=== PATIENT | female | born 1940 | race Caucasian/White ===

== ENCOUNTER 2016-06-06 14:25 | Outpatient (CLI) | payer MEDICARE, OTHER | END 2016-06-06 23:59 | DX: R06.02 Shortness of breath (principal); I10 Essential (primary) hypertension ==

== ENCOUNTER 2016-06-14 10:55 | Outpatient (CLI) | payer MEDICARE, OTHER | END 2016-06-14 10:56 | disposition home or self-care (01) | DX: Z12.31 Encounter for screening mammogram for malignant neoplasm of breast (principal) ==

== ENCOUNTER 2016-06-23 11:24 | Outpatient (CLI) | payer MEDICARE, OTHER | END 2016-06-23 11:25 | disposition home or self-care (01) | DX: I35.0 Nonrheumatic aortic (valve) stenosis (principal); R01.1 Cardiac murmur, unspecified; R06.02 Shortness of breath; I51.9 Heart disease, unspecified ==

== ENCOUNTER 2018-10-10 14:40 | Outpatient (CLI) | payer MEDICARE, OTHER ==
[2018-10-10 16:25] LABS: H. PYLORIS ANTIGEN STL NEGATIVE (Negative)
== END 2018-10-10 23:59 | disposition home or self-care (01) ==
LOC: LAB.R 14:40
PROVIDERS: ATTEND Family Medicine
DX: R19.7 Diarrhea, unspecified (principal)
CPT/HCPCS: 81599; 82270; 82274; 83630; 87045; 87046; 87177; 87209; 87329; 87338; 87493

== ENCOUNTER 2021-03-14 10:35 | Outpatient (CLI) | payer MEDICARE, OTHER | END 2021-03-14 10:36 | disposition critical access hospital (66) | LOC: EMS 10:35 | DX: U07.1 COVID-19 (principal) | CPT/HCPCS: A0425; A0429 ==

== ENCOUNTER 2021-03-14 10:49 | Inpatient (IN) | payer MEDICARE, OTHER ==
[2021-03-14 12:12] LABS: BASOPHILS % (AUTO) 0.5 %; EOSINOPHILS # (AUTO) 0.1 10^3/uL (0.0-0.7); EOSINOPHILS % (AUTO) 1.8 %; HCT - HEMATOCRIT 41.2 % (37.0-47.0); HGB - HEMOGLOBIN 13.3 g/dL (12.0-16.0); LYMPHOCYTES # (AUTO) 0.4 10^3/uL (1.5-3.5); LYMPHOCYTES % (AUTO) 6.6 %; MEAN CORPUSCULAR HEMOGLOBIN 27.2 pg (27.0-31.0); MEAN CORPUSCULAR HGB CONC 32.3 g/dL (32.0-36.0); MEAN CORPUSCULAR VOLUME 84.3 fL (81.0-99.0); MEAN PLATELET VOLUME 9.9 fL (7.9-10.8); MONOCYTES # (AUTO) 0.5 10^3/uL (0.0-1.0); MONOCYTES % (AUTO) 7.5 %; NEUTROPHILS # (AUTO) 5.4 10^3/uL (1.5-6.6); NEUTROPHILS % (AUTO) 83.3 %; PLT - PLATELET COUNT 278 10^3/uL (130-450); RED BLOOD COUNT 4.89 10^6/uL (4.20-5.40); RED CELL DISTRIBUTION WIDTH 15.9 % (12.0-15.0); WHITE BLOOD COUNT 6.5 x10^3/uL (4.8-10.8)
--- NOTE | 2021-03-14 12:19 | XRAY Report ---
PROCEDURE: Chest 1 View X-Ray INDICATIONS: chest pain TECHNIQUE: One view of the chest was acquired. COMPARISON: Chest x-ray 02/09/2016 FINDINGS: Surgical changes and devices: Pacemaker. Lungs and pleura: There is an overall appearance of increased vascularity. Blunting of the costophren ic angles are present. Mediastinum: Mediastinal contours appear normal. Heart size is normal. Bones and chest wall: No suspicious bony lesions. Overlying soft tissues appear unremarkable. IMPRESSION: Increased vascularity suggestive of edema. Costophrenic angle blunting is present likely related to t race effusions. Reviewed by: Myriam Iasac MD on 03/14/2021 12:17 PM PST Approved by: Myriam Isaac MD on 03/14/2021 12:17 PM PST Station ID: [id number]
[2021-03-14 12:29] LABS: ALBUMIN 3.9 g/dL (3.2-5.5); ALBUMIN/GLOBULIN RATIO 1.2 (1.0-2.2); BILIRUBIN,TOTAL 1.1 mg/dL (0.2-1.0); CALCIUM 9.2 mg/dL (8.5-10.3); CREATININE 0.9 mg/dL (0.4-1.0); POTASSIUM 3.6 mmol/L (3.5-5.0); TOTAL PROTEIN 7.2 g/dL (6.7-8.2)
[2021-03-14 13:11] LABS: CORONAVIRUS 229E-RESP PCR NOT DETECTED; CORONAVIRUS HKU1-RESP PCR NOT DETECTED; CORONAVIRUS NL63-RESP PCR NOT DETECTED; CORONAVIRUS OC43-RESP PCR NOT DETECTED; HUMAN METAPNEUMOVIRUS NOT DETECTED; INFLUENZA A- RESP PCR PANEL NOT DETECTED; INFLUENZA B - RESP PCR PANEL NOT DETECTED; PARAINFLUENZA VIRUS 1 NOT DETECTED; PARAINFLUENZA VIRUS 2 NOT DETECTED; PARAINFLUENZA VIRUS 3 NOT DETECTED; PARAINFLUENZA VIRUS 4 NOT DETECTED; RHINOVIRUS/ENTEROVIRUS NOT DETECTED; RSV- RESP PCR PANEL NOT DETECTED; SARS-CoV-2 -RESP PCR PANEL DETECTED
[2021-03-14 13:12] LABS: B. PARAPERTUSSIS- RESP PCR PAN NOT DETECTED; B. PERTUSSIS- RESP PCR PANEL NOT DETECTED; C. PNEUMONIAE- RESP PCR PANEL NOT DETECTED; M. PNEUMONIAE- RESP PCR PANEL NOT DETECTED
[2021-03-14] MEDS ORDERED: IOVERSOL 320 100 ML VIAL IVP ONE ×2 (13:26→15:41)
--- NOTE | 2021-03-14 15:12 | CT Report ---
PROCEDURE: ANGIO CHEST W/WO INDICATIONS: Rule out PE CONTRAST: IV CONTRAST: Optiray 320 ml: 80 PO CONTRAST: *NO PO CONTRAST TECHNIQUE: After the administration of intravenous contrast, 2 mm axial images were acquired from the pulmonary apices to the posterior costophrenic angles during the arterial phase. In addition, 1 mm lung kernel and 5 mm soft tissue kernel reconstructions were performed. 3-dimensional coronal oblique maximum int ensity projection (MIP) reformats, 8 mm axial MIP, and 5 mm coronal and sagittal MPR reformats were t hen performed through the thorax. For radiation dose reduction, the following was used: automated exp osure control, adjustment of mA and/or kV according to patient size. COMPARISON: Chest x-ray 03/14/2021 FINDINGS: Image quality: Excellent. Pulmonary arteries: Pulmonary arteries are normal in size, and demonstrate no intraluminal filling d efects to suggest central pulmonary embolism. Lungs and pleura: There is mild appearance of increased pulmonary vascularity. Mild patchy areas of o pacity are present within the lungs bilaterally particularly within the bases. There is no gross cons olidation. No pleural effusions or pneumothorax. Central and peripheral airways are patent. Mediastinum: Heart size is normal, without pericardial effusion. No mediastinal or hilar adenopathy . Thoracic aorta is normal in caliber and enhancement. Esophagus is normal in caliber, without hiat al hernia. Bones and chest wall: No suspicious bony lesions. Ribs and thoracic spine appear intact throughout. No axillary or supraclavicular adenopathy. The thyroid is normal in size and there are no incident al findings. Abdomen: Visualized upper abdominal solid organs appear normal in the early arterial phase of enhanc ement. IMPRESSION: 1. No pulmonary embolism. 2. Appearance of increased pulmonary vascularity is present as and received with edema. 3. Mild appearance of increased opacity within the lungs are present at the bases which can be seen w ith chronic interstitial pulmonary disease. However, appearance is also suggestive of edema. Underlyi ng developing areas of pneumonia and/or atelectasis cannot be excluded. CLINICAL RECOMMENDATION STATEMENTS: In patients <35 years with an ITN detected on CT, MRI, or extrathyroidal ultrasound, the Committee re commends further evaluation with dedicated thyroid ultrasound if the nodule is "e1 cm and has no susp icious imaging features, and if the patient has normal life expectancy. In patients "e35 years with an ITN detected on CT, MRI, or extrathyroidal ultrasound, the Committee r ecommends further evaluation with dedicated thyroid ultrasound if the nodule is "e1.5 cm and has no s uspicious imaging features, and if the patient has normal life expectancy. (ACR, 2014) Reviewed by: Myriam Isaac MD on 03/14/2021 3:10 PM PST Approved by: Myriam Isaac MD on 03/14/2021 3:10 PM PST Station ID: [id number]
[2021-03-14] MEDS ORDERED: DEXAMETHASONE 10 MG/ML VIAL IV STA (15:24)
[2021-03-14] MEDS ORDERED: AZITHROMYCIN INJ 500 MG in SODIUM CHLORIDE 0.9% 250 ML IV STA (15:25)
[2021-03-14] MEDS ORDERED: FUROSEMIDE 20 MG/2 ML VIAL IVP STA (17:01)
[2021-03-14] MEDS ORDERED: ASPIRIN 325 MG TABLET PO STA (17:02)
--- NOTE | 2021-03-14 17:11 | ED Physician Documentation ---
PD HPI DYSPNEA - Stated complaint Stated Complaint: SOA/C+ - Chief complaint Chief Complaint: Resp - History obtained from History obtained from: Patient - Additional information Additional information: Patient is 80-year-old female presenting to the emergency department with shortness of breath, chest pressure. Reports cough, congestion, shortness of breath, chest pressure ongoing for the last few days. States test is positive for the novel coronavirus yesterday with a home test. Reports did not receive any Covid vaccination or influenza vaccination this year.Past medical significant for prosthetic heart valve, pacemaker. Review of Systems Ten Systems: 10 systems reviewed and negative Constitutional: reports: Fever, Chills Cardiac: reports: Chest pain / pressure Respiratory: reports: Dyspnea, Cough GI: reports: Nausea, Vomiting : reports: Dysuria Skin: reports: Rash PD PAST MEDICAL HISTORY - Allergies Allergies/Adverse Reactions: Allergies Allergy/AdvReac Type Severity Reaction Status Date / Time No Known Drug Allergies Allergy Verified 03/14/21 11:01 - Social History Does the pt smoke?: No Smoking Status: Never smoker PD ED PE NORMAL - Vitals Vital signs reviewed: Yes - General General: Alert and oriented X 3 - HEENT HEENT: Atraumatic - Neck Neck: Supple, no meningeal sign - Cardiac Cardiac: RRR, No murmur, No gallop, No rub - Respiratory Respiratory: No respiratory distress, Other (Rales in the bilateral lower lobes) - Abdomen Abdomen: Normal bowel sounds - Female Female : Deferred - Rectal Rectal: Deferred Results - Vitals Vitals: Vital Signs - 24 hr 03/14/21 03/14/21 03/14/21 11:01 11:07 11:37 Temperature 39.2 C H Heart Rate 102 H 95 102 H Respiratory 28 H 25 H 30 H Rate Blood Pressure 170/64 H 163/78 H 165/78 H O2 Saturation 94 94 85 L 03/14/21 03/14/21 03/14/21 11:38 12:07 12:30 Temperature Heart Rate 100 95 92 Respiratory 25 H 36 H 28 H Rate Blood Pressure 165/78 H 160/80 H O2 Saturation 95 98 97 03/14/21 03/14/21 03/14/21 13:00 13:30 14:00 Temperature Heart Rate 100 100 99 Respiratory 20 20 27 H Rate Blood Pressure 171/76 H 170/78 H 180/86 H O2 Saturation 99 99 95 03/14/21 03/14/21 03/14/21 15:30 16:00 17:07 Temperature Heart Rate 99 99 91 Respiratory 25 H 28 H Rate Blood Pressure 176/62 H 164/83 H O2 Saturation 97 98 98 Oxygen O2 Source Nasal cannula Oxygen Flow Rate 2 - EKG (time done) 1154 Rate: Rate (enter#) (95) Rhythm: NSR [place]: LAD Intervals: Normal [place], Prolonged QT, RBBB Ischemia: Normal ST segments, Hyperacute T waves Computer interpretation: Agree with computer - Labs Labs: Laboratory Tests 03/14/21 03/14/21 03/14/21 11:53 12:03 12:03 WBC 6.5 RBC 4.89 Hgb 13.3 Hct 41.2 MCV 84.3 MCH 27.2 MCHC 32.3 RDW 15.9 H Plt Count 278 MPV 9.9 Neut # (Auto) 5.4 Lymph # (Auto) 0.[address] [facility] # (Auto) 0.5 Eos # (Auto) 0.1 Baso # (Auto) 0.0 Absolute Nucleated RBC 0.00 Nucleated RBC % 0.0 Sodium 134 L Potassium 3.6 Chloride 98 L Carbon Dioxide 23 Anion Gap 13.0 BUN 17 Creatinine 0.9 Estimated GFR (MDRD) 60 L Glucose 115 H Lactic Acid Calcium 9.2 Total Bilirubin 1.1 H AST 47 H ALT 25 Alkaline Phosphatase 77 Troponin I High Sens B-Natriuretic Peptide Total Protein 7.2 Albumin 3.9 Globulin 3.3 Albumin/Globulin Ratio 1.2 Lipase 27 Nasal Adenovirus (PCR) NOT DETECTED Nasal B. parapertussis DNA (PCR) NOT DETECTED Nasal Coronavir 229E PCR NOT DETECTED Nasal Coronavir HKU1 PCR NOT DETECTED Nasal Coronavir NL63 PCR NOT DETECTED Nasal Coronavir OC43 PCR NOT DETECTED Nasal Enterovir/Rhinovir PCR NOT DETECTED Nasal Influenza B PCR NOT DETECTED Nasal Influenza A PCR NOT DETECTED Nasal Parainfluen 1 PCR NOT DETECTED Nasal Parainfluen 2 PCR NOT DETECTED Nasal Parainfluen 3 PCR NOT DETECTED Nasal Parainfluen 4 PCR NOT DETECTED Nasal RSV (PCR) NOT DETECTED Nasal B.pertussis DNA PCR NOT DETECTED Nasal C.pneumoniae (PCR) NOT DETECTED Pancho Human Metapneumo PCR NOT DETECTED Nasal M.pneumoniae (PCR) NOT DETECTED Nasal SARS-CoV-2 (PCR) DETECTED A 03/14/21 03/14/21 03/14/21 12:03 12:03 12:03 WBC RBC Hgb Hct MCV MCH MCHC RDW Plt Count MPV Neut # (Auto) Lymph # (Auto) [facility] [facility] # (Auto) Eos # (Auto) Baso # (Auto) Absolute Nucleated RBC Nucleated RBC % Sodium Potassium Chloride Carbon Dioxide Anion Gap BUN Creatinine Estimated GFR (MDRD) Glucose Lactic Acid 1.9 Calcium Total Bilirubin AST ALT Alkaline Phosphatase Troponin I High Sens 28.4 H* B-Natriuretic Peptide 87 Total Protein Albumin Globulin Albumin/Globulin Ratio Lipase Nasal Adenovirus (PCR) Nasal B. parapertussis DNA (PCR) Nasal Coronavir 229E PCR Nasal Coronavir HKU1 PCR Nasal Coronavir NL63 PCR Nasal Coronavir OC43 PCR Nasal Enterovir/Rhinovir PCR Nasal Influenza B PCR Nasal Influenza A PCR Nasal Parainfluen 1 PCR Nasal Parainfluen 2 PCR Nasal Parainfluen 3 PCR Nasal Parainfluen 4 PCR Nasal RSV (PCR) Nasal B.pertussis DNA PCR Nasal C.pneumoniae (PCR) Pancho Human Metapneumo PCR Nasal M.pneumoniae (PCR) Nasal SARS-CoV-2 (PCR) 03/14/21 15:35 WBC RBC Hgb Hct MCV MCH MCHC RDW Plt Count MPV Neut # (Auto) Lymph # (Auto) [facility] # (Auto) Eos # (Auto) Baso # (Auto) Absolute Nucleated RBC Nucleated RBC % Sodium Potassium Chloride Carbon Dioxide Anion Gap BUN Creatinine Estimated GFR (MDRD) Glucose Lactic Acid Calcium Total Bilirubin AST ALT Alkaline Phosphatase Troponin I High Sens 30.9 H* B-Natriuretic Peptide Total Protein Albumin Globulin Albumin/Globulin Ratio Lipase Nasal Adenovirus (PCR) Nasal B. parapertussis DNA (PCR) Nasal Coronavir 229E PCR Nasal Coronavir HKU1 PCR Nasal Coronavir NL63 PCR Nasal Coronavir OC43 PCR Nasal Enterovir/Rhinovir PCR Nasal Influenza B PCR Nasal Influenza A PCR Nasal Parainfluen 1 PCR Nasal Parainfluen 2 PCR Nasal Parainfluen 3 PCR Nasal Parainfluen 4 PCR Nasal RSV (PCR) Nasal B.pertussis DNA PCR Nasal C.pneumoniae (PCR) Pancho Human Metapneumo PCR Nasal M.pneumoniae (PCR) Nasal SARS-CoV-2 (PCR) PD MEDICAL DECISION MAKING - ED course Complexity details: reviewed old records, reviewed results, considered differential, d/w patient, d/w program consultant ED course: Patient is 80-year-old female presenting to the emergency department with hypoxic respiratory failure, chest pressure in setting of recent positive home Covid test. On arrival to the emergency department patient did endorse for some shortness of breath and chest pressure. EKG as outlined above was negative for indications of acute cardiac ischemia and was consistent with her known history of a pacer. She did have a mild elevation in high-sensitivity troponin that was uptrending on repeat. Additionally while in the emergency department she had some brief episodes of hypoxia and was placed on 2 L nasal cannula. I did obtain comprehensive labs which were generally within normal limits are non actionable with the exception of the above-mentioned troponin. I did elect to obtain CT of her chest which demonstrated some pulmonary edema, of note her BNP was within a normal limit and she did not appear to be in any kind of florid heart failure. Her case was discussed directly with the hospitalist service. At this time she will be hospitalized for further evaluation and treatment. Departure - Departure Disposition: 01 Home, Self Care Clinical Impression: COVID-19, Pulmonary edema, Elevated troponin I level Condition: Fair
--- NOTE | 2021-03-14 17:13 | HISTORY & PHYSICAL EXAMINATION ---
Chief Complaint - Chief Complaint Chief Complaint: dyspnea, substernal chest pressure History of Present Illness - Admitted From Admitted From:: [facility] ED - History Obtained From Records Reviewed: yes History obtained from: patient - History of Present Illness HPI Comment/Other: He is an 80-year-old female who presented to the ED with complaint of dyspnea which has been going on for the past 2 days. Today it was worse. She also reported experiencing substernal chest discomfort which she described as a pressure and rated 7 out of 10. She was also experiencing nausea and dry heaving. She reported an unspecified fever. In the ED she was tachypneic with respiratory rate as high as 36. As she was hypoxic with an oxygen saturation of 85% on room air. However on 2 L oxygen her oxygen saturation was in the mid to high 90s. She had a CT angiogram which was negative for pulmonary embolism but there was increased pulmonary vascularity suggestive of edema. Initial troponin was 28 and a repeat was 30. She is positive for COVID-19. She is unvaccinated. She was admitted for further treatment. 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 Social History Notes: She lives at home with her . She does not smoke tobacco products, consume alcohol or use recreational substances - POLST Patient has POLST: No POLST Status: Full Code Meds/Allgy - Allergies Allergies/Adverse Reactions: Allergies Allergy/AdvReac Type Severity Reaction Status Date / Time No Known Drug Allergies Allergy Verified 03/14/21 11:01 Review of Systems - Constitutional Constitutional: reports: Fever. denies: Fatigue, Weakness - Eyes Eyes: denies: Pain - Ears, Nose & Throat Ears, Nose & Throat: denies: Ear pain - Cardiovascular Cariovascular: reports: Chest pain, Exertional dyspnea. denies: Irregular heart rate, Edema - Respiratory Respiratory: reports: Wheezing, SOB at rest, SOB with exertion. denies: Cough - Gastrointestinal Gastrointestinal: reports: Nausea, Vomiting. denies: Abdominal pain, Abdominal distention, Diarrhea, Reflux/heartburn - Genitourinary Genitourinary: denies: Dysuria, Frequency, Urgency, Hematuria - Musculoskeletal Musculoskeletal: denies: Muscle pain, Back pain, Muscle aches - Integumentary Integumentary: denies: Rash, Pruritis, Lesions - Neurological Neurological: denies: General weakness, Focal weakness, Headache, Dizziness - Psychiatric Psychiatric: denies: Depression, Anxiety - Endocrine Endocrine: denies: Polyuria, Polydypsia - Hematologic/Lymphatic Hematologic/Lymphatic: denies: Anemia, Bruising, Petechiae Prior Level of Functionality: She is independent of activities of daily living. Exam - Vital Signs Vital Signs: Vital Signs x48h Temp Pulse Resp BP Pulse Ox 03/14/21 16:00 99 25 H 176/62 H 98 03/14/21 15:30 99 97 03/14/21 14:00 99 27 H 180/86 H 95 03/14/21 13:30 100 20 170/78 H 99 03/14/21 13:00 100 20 171/76 H 99 03/14/21 12:30 92 28 H 97 03/14/21 12:07 95 36 H 160/80 H 98 03/14/21 11:38 100 25 H 165/78 H 95 03/14/21 11:37 102 H 30 H 165/78 H 85 L 03/14/21 11:07 95 25 H 163/78 H 94 03/14/21 11:01 39.2 C H 102 H 28 H 170/64 H 94 - Physical Exam General Appearance: positive: Alert, Mild distress Eyes Bilateral: positive: PERRL, EOMI ENT: positive: No signs of dehydration Neck: positive: No JVD, Trachea midline Respiratory: positive: Chest non-tender, Rhonchi Cardiovascular: positive: Regular rate & rhythm, No murmur, No gallop Abdomen: positive: Non-tender, Nml bowel sounds, No distention. negative: Guarding, Rebound Back: positive: Nml inspection Skin: positive: Color nml, No rash, Warm, Dry Extremities: positive: Non-tender, Full ROM, Nml appearance, No pedal edema Neurologic/Psychiatric: positive: Oriented x3, Mood/affect nml Conclusion/Plan - Problem List (1) Acute respiratory failure with hypoxia Conclusion/Plan: Likely secondary to COVID-19 Patient was briefly hypoxic with oxygen saturation of 85% on room air. On 2 L patient's oxygen saturation ranges between 95 and 97%. Patient received Decadron 10 mg IV x1 in the ED. We will continue Decadron 6 mg IV daily starting tomorrow. Continue supplemental oxygen via nasal cannula. Lovenox 40 mg IV subcu for DVT prophylaxis. CT angio of the chest was negative for PE. (2) COVID-19 Conclusion/Plan: Patient was briefly hypoxic with oxygen saturation of 85% on room air. On 2 L patient's oxygen saturation ranges between 95 and 97%. Patient received Decadron 10 mg IV x1 in the ED. We will continue Decadron 6 mg IV daily starting tomorrow. Continue supplemental oxygen via nasal cannula. Lovenox 40 mg IV subcu for DVT prophylaxis. CT angio of the chest was negative for PE. (3) Chest pressure Conclusion/Plan: This is likely due to patient's respiratory problem with COVID-19. However we will trend troponin x3. Initial troponin was 28, repeat was 30. Full dose aspirin given. We will continue baby aspirin daily starting tomorrow. Twelve-lead EKG pending. Patient's COVID-19 positive result will limit patient's ability to undergo a stress test at the moment. (4) Hypothyroidism Conclusion/Plan: Continue Synthroid at home dose. (5) Hypertension Conclusion/Plan: Labetalol and/or hydralazine IV as needed for systolic blood pressure greater than 160. - Lab Results Fish Bones: 03/14/21 12:03 03/14/21 12:03 Core Measures - Anticipated LOS I expect patient to be DC'd or transferred within 96 hours.: Yes - DVT/VTE - Prophylaxis VTE/DVT Device ordered at admit?: Yes VTE/DVT Prophylaxis med ordered at admit?: Yes
[2021-03-14] MEDS ORDERED: LABETALOL 20 MG/4 ML SYRINGE IVP PRN (17:21)
[2021-03-14] MEDS: SODIUM CHLORIDE FLUSH 0.9% 10 ML SYRINGE IVP SCH (18:01)
[2021-03-14] MEDS: ACETAMINOPHEN 325 MG TABLET PO PRN (18:40)
[2021-03-15] MEDS: SODIUM CHLORIDE FLUSH 0.9% 10 ML SYRINGE IVP SCH ×3 (02:00→19:34)
[2021-03-15] MEDS: BENZOCAINE/MENTHOL LOZENGE MM PRN (04:13)
[2021-03-15] MEDS: ACETAMINOPHEN 325 MG TABLET PO PRN ×3 (04:13→17:12)
[2021-03-15 04:22] LABS: BASOPHILS % (AUTO) 0.2 %; HCT - HEMATOCRIT 43.1 % (37.0-47.0); LYMPHOCYTES # (AUTO) 0.6 10^3/uL (1.5-3.5); LYMPHOCYTES % (AUTO) 10.5 %; MEAN CORPUSCULAR HEMOGLOBIN 26.9 pg (27.0-31.0); MEAN CORPUSCULAR HGB CONC 32.5 g/dL (32.0-36.0); MEAN CORPUSCULAR VOLUME 82.7 fL (81.0-99.0); MEAN PLATELET VOLUME 9.8 fL (7.9-10.8); MONOCYTES # (AUTO) 0.5 10^3/uL (0.0-1.0); MONOCYTES % (AUTO) 8.4 %; NEUTROPHILS # (AUTO) 4.5 10^3/uL (1.5-6.6); NEUTROPHILS % (AUTO) 80.4 %; PLT - PLATELET COUNT 293 10^3/uL (130-450); RED BLOOD COUNT 5.21 10^6/uL (4.20-5.40); RED CELL DISTRIBUTION WIDTH 15.7 % (12.0-15.0); WHITE BLOOD COUNT 5.6 x10^3/uL (4.8-10.8)
[2021-03-15 04:33] LABS: CALCIUM 9.5 mg/dL (8.5-10.3); POTASSIUM 3.3 mmol/L (3.5-5.0)
[2021-03-15] MEDS ORDERED: POTASSIUM CHLORIDE 20 MEQ TABLET PO ONE (07:19)
--- NOTE | 2021-03-15 07:52 | PROVIDER PROGRESS NOTE ---
Subjective - Prog Note Date Prog Note Date: 03/15/21 - Subjective Subjective: She does not feel any better today. Still feels short of breath especially with any activity. She is beginning to have a worsening cough. Current Medications - Current Medications Current Medications: Active Medications Acetaminophen (Acetaminophen 325 Mg Tablet) 650 mg PO Q4HR PRN PRN Reason: Pain 1 to 4 Last Admin: 03/15/21 04:13 Dose: 650 mg Documented by: Aspirin (Aspirin Ec 81 Mg Tablet) 81 mg PO DAILY [facility] Last Admin: 03/15/21 08:32 Dose: 81 mg Documented by: Dexamethasone (Dexamethasone 4 Mg/Ml Vial) 6 mg IVP DAILY [facility] Stop: 03/23/21 09:01 Last Admin: 03/15/21 08:32 Dose: 6 mg Documented by: Enoxaparin Sodium (Enoxaparin 40 Mg/0.4 Ml Syringe) 40 mg SUBQ DAILY [facility] Last Admin: 03/15/21 08:32 Dose: 40 mg Documented by: Hydralazine HCl (Hydralazine Inj 20 Mg/Ml Vial) 10 mg IVP Q4H PRN PRN Reason: PER PHYSICIAN ORDER Labetalol HCl (Labetalol 20 Mg/4 Ml Syringe) 10 mg IVP Q4H PRN PRN Reason: PER PHYSICIAN ORDER Ondansetron HCl (Ondansetron 4 Mg/2 Ml Vial) 4 mg IVP Q6HR PRN PRN Reason: Nausea / Vomiting Sodium Chloride (Sodium Chloride Flush 0.9% 10 Ml Syringe) 10 ml IVP PRN PRN PRN Reason: NEEDED PER PROVIDER ORDERS Sodium Chloride (Sodium Chloride Flush 0.9% 10 Ml Syringe) 10 ml IVP 0100,0900,1700 [facility] Last Admin: 03/15/21 08:37 Dose: 10 ml Documented by: Throat Lozenges (Benzocaine/Menthol Lozenge) 1 lozenge MM Q2HR PRN PRN Reason: Throat pain Last Admin: 03/15/21 04:13 Dose: 1 lozenge Documented by: Home Medications Unobtainable [HOME MEDICATIONS UNOBTAINABLE] 03/14/21 Objective - Vital Signs/Intake & Output Reviewed Vital Signs: Yes Vital Signs: Vital Signs x48h Temp Pulse Resp BP BP Pulse Ox 03/15/21 04:21 36.5 C 82 20 153/67 H 92 03/15/21 02:00 36.4 C L 81 18 160/70 H 94 Intake & Output: Intake & Output 03/12/21 03/13/21 03/14/21 03/15/21 23:59 23:59 23:59 23:59 Intake Total 250 50 Output Total 600 Balance -350 50 - Objective General Appearance: positive: No acute distress, Alert Eyes Bilateral: positive: Normal inspection, Conjunctivae nml ENT: positive: ENT inspection nml, Other (Nasal cannula in place.) Neck: positive: Nml inspection Respiratory: positive: No respiratory distress, Other (Diminished breath sounds.) Cardiovascular: positive: Regular rate & rhythm. negative: Tachycardia, Systolic murmur Abdomen: positive: Non-tender, No distention. negative: Tenderness Skin: positive: Warm, Dry Extremities: positive: No pedal edema Neurologic/Psychiatric: positive: Motor nml. negative: Disoriented to person, Disoriented to place, Disoriented to time - Lab Results Fish Bones: 03/15/21 04:14 03/15/21 04:14 Other Labs: Lab Results x24hrs 03/15/21 03/15/21 03/15/21 Range/Units 04:14 04:14 04:14 WBC 5.6 (4.8-10.8) x10^3/uL RBC 5.21 (4.20-5.40) 10^6/uL Hgb 14.0 (12.0-16.0) g/dL Hct 43.1 (37.0-47.0) % MCV 82.7 (81.0-99.0) fL MCH 26.9 L (27.0-31.0) pg MCHC 32.5 (32.0-36.0) g/dL RDW 15.7 H (12.0-15.0) % Plt Count 293 (130-450) 10^3/uL MPV 9.8 (7.9-10.8) fL Neut # (Auto) 4.5 (1.5-6.6) 10^3/uL Lymph # (Auto) 0.6 L (1.5-3.5) 10^3/uL [place] # (Auto) 0.5 (0.0-1.0) 10^3/uL Eos # (Auto) 0.0 (0.0-0.7) 10^3/uL Baso # (Auto) 0.0 (0.0-0.1) 10^3/uL Absolute Nucleated RBC 0.00 x10^3/uL Nucleated RBC % 0.0 /100WBC Sodium 133 L (135-145) mmol/L Potassium 3.3 L (3.5-5.0) mmol/L Chloride 99 L (101-111) mmol/L Carbon Dioxide 21 (21-32) mmol/L Anion Gap 13.0 (6-13) BUN 26 H (6-20) mg/dL Creatinine 1.0 (0.4-1.0) mg/dL Estimated GFR (MDRD) 53 L (>89) Glucose 185 H (70-100) mg/dL Lactic Acid (0.5-2.2) mmol/L Calcium 9.5 (8.5-10.3) mg/dL Total Bilirubin (0.2-1.0) mg/dL AST (10-42) IU/L ALT (10-60) IU/L Alkaline Phosphatase (42-121) IU/L Troponin I High Sens 18.3 H* (2.3-14.8) ng/L B-Natriuretic Peptide (5-100) pg/mL Total Protein (6.7-8.2) g/dL Albumin (3.2-5.5) g/dL Globulin (2.1-4.2) g/dL Albumin/Globulin Ratio (1.0-2.2) Lipase (22-51) U/L Nasal Adenovirus (PCR) Nasal B. parapertussis DNA (PCR) Nasal Coronavir 229E PCR Nasal Coronavir HKU1 PCR Nasal Coronavir NL63 PCR Nasal Coronavir OC43 PCR Nasal Enterovir/Rhinovir PCR Nasal Influenza B PCR Nasal Influenza A PCR Nasal Parainfluen 1 PCR Nasal Parainfluen 2 PCR Nasal Parainfluen 3 PCR Nasal Parainfluen 4 PCR Nasal RSV (PCR) Nasal B.pertussis DNA PCR Nasal C.pneumoniae (PCR) [place] Human Metapneumo PCR Nasal M.pneumoniae (PCR) Nasal SARS-CoV-2 (PCR) 03/14/21 03/14/21 03/14/21 Range/Units 22:06 15:35 12:03 WBC (4.8-10.8) x10^3/uL RBC (4.20-5.40) 10^6/uL Hgb (12.0-16.0) g/dL Hct (37.0-47.0) % MCV (81.0-99.0) fL MCH (27.0-31.0) pg MCHC (32.0-36.0) g/dL RDW (12.0-15.0) % Plt Count (130-450) 10^3/uL MPV (7.9-10.8) fL Neut # (Auto) (1.5-6.6) 10^3/uL Lymph # (Auto) (1.5-3.5) 10^3/uL [place] # (Auto) (0.0-1.0) 10^3/uL Eos # (Auto) (0.0-0.7) 10^3/uL Baso # (Auto) (0.0-0.1) 10^3/uL Absolute Nucleated RBC x10^3/uL Nucleated RBC % /100WBC Sodium (135-145) mmol/L Potassium (3.5-5.0) mmol/L Chloride (101-111) mmol/L Carbon Dioxide (21-32) mmol/L Anion Gap (6-13) BUN (6-20) mg/dL Creatinine (0.4-1.0) mg/dL Estimated GFR (MDRD) (>89) Glucose (70-100) mg/dL Lactic Acid (0.5-2.2) mmol/L Calcium (8.5-10.3) mg/dL Total Bilirubin (0.2-1.0) mg/dL AST (10-42) IU/L ALT (10-60) IU/L Alkaline Phosphatase (42-121) IU/L Troponin I High Sens 30.3 H* 30.9 H* 28.4 H* (2.3-14.8) ng/L B-Natriuretic Peptide (5-100) pg/mL Total Protein (6.7-8.2) g/dL Albumin (3.2-5.5) g/dL Globulin (2.1-4.2) g/dL Albumin/Globulin Ratio (1.0-2.2) Lipase (22-51) U/L Nasal Adenovirus (PCR) Nasal B. parapertussis DNA (PCR) Nasal Coronavir 229E PCR Nasal Coronavir HKU1 PCR Nasal Coronavir NL63 PCR Nasal Coronavir OC43 PCR Nasal Enterovir/Rhinovir PCR Nasal Influenza B PCR Nasal Influenza A PCR Nasal Parainfluen 1 PCR Nasal Parainfluen 2 PCR Nasal Parainfluen 3 PCR Nasal Parainfluen 4 PCR Nasal RSV (PCR) Nasal B.pertussis DNA PCR Nasal C.pneumoniae (PCR) [place] Human Metapneumo PCR Nasal M.pneumoniae (PCR) Nasal SARS-CoV-2 (PCR) 03/14/21 03/14/21 03/14/21 Range/Units 12:03 12:03 12:03 WBC (4.8-10.8) x10^3/uL RBC (4.20-5.40) 10^6/uL Hgb (12.0-16.0) g/dL Hct (37.0-47.0) % MCV (81.0-99.0) fL MCH (27.0-31.0) pg MCHC (32.0-36.0) g/dL RDW (12.0-15.0) % Plt Count (130-450) 10^3/uL MPV (7.9-10.8) fL Neut # (Auto) (1.5-6.6) 10^3/uL Lymph # (Auto) (1.5-3.5) 10^3/uL [place] # (Auto) (0.0-1.0) 10^3/uL Eos # (Auto) (0.0-0.7) 10^3/uL Baso # (Auto) (0.0-0.1) 10^3/uL Absolute Nucleated RBC x10^3/uL Nucleated RBC % /100WBC Sodium 134 L (135-145) mmol/L Potassium 3.6 (3.5-5.0) mmol/L Chloride 98 L (101-111) mmol/L Carbon Dioxide 23 (21-32) mmol/L Anion Gap 13.0 (6-13) BUN 17 (6-20) mg/dL Creatinine 0.9 (0.4-1.0) mg/dL Estimated GFR (MDRD) 60 L (>89) Glucose 115 H (70-100) mg/dL Lactic Acid 1.9 (0.5-2.2) mmol/L Calcium 9.2 (8.5-10.3) mg/dL Total Bilirubin 1.1 H (0.2-1.0) mg/dL AST 47 H (10-42) IU/L ALT 25 (10-60) IU/L Alkaline Phosphatase 77 (42-121) IU/L Troponin I High Sens (2.3-14.8) ng/L B-Natriuretic Peptide 87 (5-100) pg/mL Total Protein 7.2 (6.7-8.2) g/dL Albumin 3.9 (3.2-5.5) g/dL Globulin 3.3 (2.1-4.2) g/dL Albumin/Globulin Ratio 1.2 (1.0-2.2) Lipase 27 (22-51) U/L Nasal Adenovirus (PCR) Nasal B. parapertussis DNA (PCR) Nasal Coronavir 229E PCR Nasal Coronavir HKU1 PCR Nasal Coronavir NL63 PCR Nasal Coronavir OC43 PCR Nasal Enterovir/Rhinovir PCR Nasal Influenza B PCR Nasal Influenza A PCR Nasal Parainfluen 1 PCR Nasal Parainfluen 2 PCR Nasal Parainfluen 3 PCR Nasal Parainfluen 4 PCR Nasal RSV (PCR) Nasal B.pertussis DNA PCR Nasal C.pneumoniae (PCR) [place] Human Metapneumo PCR Nasal M.pneumoniae (PCR) Nasal SARS-CoV-2 (PCR) 03/14/21 03/14/21 Range/Units 12:03 11:53 WBC 6.5 (4.8-10.8) x10^3/uL RBC 4.89 (4.20-5.40) 10^6/uL Hgb 13.3 (12.0-16.0) g/dL Hct 41.2 (37.0-47.0) % MCV 84.3 (81.0-99.0) fL MCH 27.2 (27.0-31.0) pg MCHC 32.3 (32.0-36.0) g/dL RDW 15.9 H (12.0-15.0) % Plt Count 278 (130-450) 10^3/uL MPV 9.9 (7.9-10.8) fL Neut # (Auto) 5.4 (1.5-6.6) 10^3/uL Lymph # (Auto) 0.4 L (1.5-3.5) 10^3/uL [place] # (Auto) 0.5 (0.0-1.0) 10^3/uL Eos # (Auto) 0.1 (0.0-0.7) 10^3/uL Baso # (Auto) 0.0 (0.0-0.1) 10^3/uL Absolute Nucleated RBC 0.00 x10^3/uL Nucleated RBC % 0.0 /100WBC Sodium (135-145) mmol/L Potassium (3.5-5.0) mmol/L Chloride (101-111) mmol/L Carbon Dioxide (21-32) mmol/L Anion Gap (6-13) BUN (6-20) mg/dL Creatinine (0.4-1.0) mg/dL Estimated GFR (MDRD) (>89) Glucose (70-100) mg/dL Lactic Acid (0.5-2.2) mmol/L Calcium (8.5-10.3) mg/dL Total Bilirubin (0.2-1.0) mg/dL AST (10-42) IU/L ALT (10-60) IU/L Alkaline Phosphatase (42-121) IU/L Troponin I High Sens (2.3-14.8) ng/L B-Natriuretic Peptide (5-100) pg/mL Total Protein (6.7-8.2) g/dL Albumin (3.2-5.5) g/dL Globulin (2.1-4.2) g/dL Albumin/Globulin Ratio (1.0-2.2) Lipase (22-51) U/L Nasal Adenovirus (PCR) NOT DETECTED Nasal B. parapertussis DNA (PCR) NOT DETECTED Nasal Coronavir 229E PCR NOT DETECTED Nasal Coronavir HKU1 PCR NOT DETECTED Nasal Coronavir NL63 PCR NOT DETECTED Nasal Coronavir OC43 PCR NOT DETECTED Nasal Enterovir/Rhinovir PCR NOT DETECTED Nasal Influenza B PCR NOT DETECTED Nasal Influenza A PCR NOT DETECTED Nasal Parainfluen 1 PCR NOT DETECTED Nasal Parainfluen 2 PCR NOT DETECTED Nasal Parainfluen 3 PCR NOT DETECTED Nasal Parainfluen 4 PCR NOT DETECTED Nasal RSV (PCR) NOT DETECTED Nasal B.pertussis DNA PCR NOT DETECTED Nasal C.pneumoniae (PCR) NOT DETECTED [place] Human Metapneumo PCR NOT DETECTED Nasal M.pneumoniae (PCR) NOT DETECTED Nasal SARS-CoV-2 (PCR) DETECTED A Assessment/Plan - Problem List (1) Acute respiratory failure with hypoxia Impression: This is secondary to pneumonia due to COVID-19. She is now requiring 3 L of oxygen to maintain her saturation above 92%. She had already been started on Decadron. We discussed starting Remdesivir but she prefers to hold off on this due to potential side effects with the liver and kidney. She will reconsider if she has an increase in her oxygen requirements. We will continue supplemental oxygen and supportive care. (2) Pneumonia due to 2019 novel coronavirus Impression: This is the cause of her respiratory failure. Today is day 2 of Decadron. We will hold off on remdesivir given the patient prefers to not use it at this moment. We did discuss the risks and benefits. Continue contact precautions. (3) Chest pressure Impression: Suspect this is likely pleuritic in nature secondary to the COVID-19 pneumonia. Troponins are only mildly elevated and flat. Low suspicion for ACS. She will need an outpatient stress test once she recovers from her COVID-19 infection. (4) History of aortic valve replacement Impression: She has a history of aortic valve replacement within the past 2 years. (5) Hypertension Impression: She had been hypertensive yesterday with systolics in the 140s to 150s. She is now normotensive. We will continue to monitor and add an antihypertensive if necessary. (6) Hypothyroidism Impression: Continue synthroid.
[2021-03-15] MEDS: DEXAMETHASONE 4 MG/ML VIAL IVP SCH (08:32)
[2021-03-15] MEDS: ENOXAPARIN 40 MG/0.4 ML SYRINGE SUBQ SCH (08:32)
[2021-03-15] MEDS: ASPIRIN EC 81 MG TABLET PO SCH (08:32)
[2021-03-15] MEDS: ONDANSETRON 4 MG/2 ML VIAL IVP PRN ×2 (10:39→19:30)
[2021-03-15] MEDS: SODIUM CHLORIDE FLUSH 0.9% 10 ML SYRINGE IVP PRN (10:44)
--- NOTE | 2021-03-15 12:02 | PHARMACY PROGRESS NOTE ---
- Best Possible Medication History Admit Date and Time: 03/15/21 1059 Processed by: Pharmacy Medication History completed: Yes Secondary Source(s): Pharmacy records, Insurance records As the person ultimately responsible for medication therapy, providers are able to order a medication from an existing home medication list in [facility] via the "Reconcile Routine" prior to Confirmation of that medication by it support specialist. Such practice is discouraged except when the physician, in their clinical judgment, deems that a medical need exists for a medication without regard to previous use.
[2021-03-15] MEDS: guaiFENesin 600 MG TABLET PO SCH ×2 (13:43→20:46)
[2021-03-16] MEDS: ACETAMINOPHEN 325 MG TABLET PO PRN ×3 (00:24→23:50)
[2021-03-16] MEDS: hydrALAZINE INJ 20 MG/ML VIAL IVP PRN (00:24)
[2021-03-16] MEDS: SODIUM CHLORIDE FLUSH 0.9% 10 ML SYRINGE IVP SCH ×4 (00:25→21:06)
[2021-03-16 06:27] LABS: BASOPHILS % (AUTO) 0.2 %; HCT - HEMATOCRIT 41.2 % (37.0-47.0); HGB - HEMOGLOBIN 13.3 g/dL (12.0-16.0); LYMPHOCYTES # (AUTO) 0.5 10^3/uL (1.5-3.5); MEAN CORPUSCULAR HGB CONC 32.3 g/dL (32.0-36.0); MEAN CORPUSCULAR VOLUME 83.6 fL (81.0-99.0); MONOCYTES # (AUTO) 0.6 10^3/uL (0.0-1.0); MONOCYTES % (AUTO) 5.1 %; NEUTROPHILS # (AUTO) 10.8 10^3/uL (1.5-6.6); NEUTROPHILS % (AUTO) 90.3 %; PLT - PLATELET COUNT 333 10^3/uL (130-450); RED BLOOD COUNT 4.93 10^6/uL (4.20-5.40); RED CELL DISTRIBUTION WIDTH 15.9 % (12.0-15.0); WHITE BLOOD COUNT 11.9 x10^3/uL (4.8-10.8)
[2021-03-16 06:37] LABS: CALCIUM 9.1 mg/dL (8.5-10.3); POTASSIUM 3.9 mmol/L (3.5-5.0)
[2021-03-16] MEDS: ONDANSETRON 4 MG/2 ML VIAL IVP PRN (08:18)
[2021-03-16] MEDS: SODIUM CHLORIDE FLUSH 0.9% 10 ML SYRINGE IVP PRN ×2 (08:22→09:46)
[2021-03-16] MEDS: ASPIRIN EC 81 MG TABLET PO SCH ×2 (08:23→11:21)
[2021-03-16] MEDS: guaiFENesin 600 MG TABLET PO SCH ×2 (08:23→20:02)
[2021-03-16] MEDS: ENOXAPARIN 40 MG/0.4 ML SYRINGE SUBQ SCH (08:23)
[2021-03-16] MEDS: DEXAMETHASONE 4 MG/ML VIAL IVP SCH (08:23)
--- NOTE | 2021-03-16 08:36 | PROVIDER PROGRESS NOTE ---
Subjective - Prog Note Date Prog Note Date: 03/16/21 - Subjective Subjective: She feels much worse today. Feels tired and did not sleep well. Still feels quite short of breath. Has no more chest pain. Current Medications - Current Medications Current Medications: Active Medications Acetaminophen (Acetaminophen 325 Mg Tablet) 650 mg PO Q4HR PRN PRN Reason: Pain 1 to 4 Last Admin: 03/16/21 05:36 Dose: 650 mg Documented by: Aspirin (Aspirin Ec 81 Mg Tablet) 81 mg PO DAILY [facility] Last Admin: 03/16/21 08:23 Dose: 81 mg Documented by: Dexamethasone (Dexamethasone 4 Mg/Ml Vial) 6 mg IVP DAILY [facility] Stop: 03/23/21 09:01 Last Admin: 03/16/21 08:23 Dose: 6 mg Documented by: Enoxaparin Sodium (Enoxaparin 40 Mg/0.4 Ml Syringe) 40 mg SUBQ DAILY [facility] Last Admin: 03/16/21 08:23 Dose: 40 mg Documented by: Guaifenesin (Guaifenesin 600 Mg Tablet) 600 mg PO BID [facility] Last Admin: 03/16/21 08:23 Dose: 600 mg Documented by: Hydralazine HCl (Hydralazine Inj 20 Mg/Ml Vial) 10 mg IVP Q4H PRN PRN Reason: PER PHYSICIAN ORDER Last Admin: 03/16/21 00:24 Dose: 10 mg Documented by: Remdesivir 200 mg/ Sodium (Chloride) 250 mls @ 250 mls/hr IV ONCE ONE Stop: 03/16/21 10:59 Remdesivir 100 mg/ Sodium (Chloride) 100 mls @ 200 mls/hr IV DAILY [facility] Stop: 03/20/21 09:29 Azithromycin 500 mg/ Sodium (Chloride) 250 mls @ 250 mls/hr IV DAILY [facility] Stop: 03/18/21 09:59 Ceftriaxone Sodium 2 gm/ (Sodium Chloride) 100 mls @ 200 mls/hr IV DAILY [facility] Stop: 03/20/21 09:29 Labetalol HCl (Labetalol 20 Mg/4 Ml Syringe) 10 mg IVP Q4H PRN PRN Reason: PER PHYSICIAN ORDER Ondansetron HCl (Ondansetron 4 Mg/2 Ml Vial) 4 mg IVP Q6HR PRN PRN Reason: Nausea / Vomiting Last Admin: 03/16/21 08:18 Dose: 4 mg Documented by: Sodium Chloride (Sodium Chloride Flush 0.9% 10 Ml Syringe) 10 ml IVP PRN PRN PRN Reason: NEEDED PER PROVIDER ORDERS Last Admin: 03/16/21 08:22 Dose: 10 ml Documented by: Sodium Chloride (Sodium Chloride Flush 0.9% 10 Ml Syringe) 10 ml IVP 0100,0900, 1700 [facility] Last Admin: 03/16/21 08:20 Dose: 10 ml Documented by: Throat Lozenges (Benzocaine/Menthol Lozenge) 1 lozenge MM Q2HR PRN PRN Reason: Throat pain Last Admin: 03/15/21 04:13 Dose: 1 lozenge Documented by: Aspirin [Aspirin EC] 81 mg PO DAILY 03/15/21 Liothyronine [Cytomel] 25 mcg PO QDAC 03/15/21 Meloxicam [Mobic] 1 tablet PO DAILY 03/15/21 Potassium Chloride [Klor-Con 10] 10 meq PO BIDWM 03/15/21 Rosuvastatin Calcium [Crestor] 10 mg PO DAILY 03/15/21 Objective - Vital Signs/Intake & Output Reviewed Vital Signs: Yes Vital Signs: Vital Signs x48h Temp Pulse Pulse Resp BP BP Pulse Ox 03/16/21 08:11 37.6 C 85 24 132/50 H 91 L 03/16/21 05:30 37.8 C 93 22 135/48 H 90 L 03/16/21 01:00 106 H 152/53 H 03/16/21 00:55 111 H 139/56 H 03/16/21 00:54 152/53 H 03/16/21 00:45 119 H 121/102 H Intake & Output: Intake & Output 03/13/21 03/14/21 03/15/21 03/16/21 23:59 23:59 23:59 23:59 Intake Total 250 890 400 Output Total 600 425 0 Balance -350 465 400 - Objective General Appearance: positive: Other (Appears ill and fatigued) Eyes Bilateral: positive: Normal inspection, No lid inflammation ENT: positive: ENT inspection nml, Other (High flow nasal cannula in place.) Neck: positive: Nml inspection Respiratory: positive: No respiratory distress, Rhonchi. negative: Wheezes, Rales Cardiovascular: positive: Regular rate & rhythm. negative: Systolic murmur Abdomen: positive: Non-tender, No distention. negative: Tenderness Skin: positive: Warm, Dry Extremities: positive: No pedal edema Neurologic/Psychiatric: negative: Disoriented to person, Disoriented to place - Lab Results Fish Bones: 03/16/21 06:11 03/16/21 06:11 Other Labs: Lab Results x24hrs 03/16/21 03/16/21 Range/Units 06:11 06:11 WBC 11.9 H (4.8-10.8) x10^3/uL RBC 4.93 (4.20-5.40) 10^6/uL Hgb 13.3 (12.0-16.0) g/dL Hct 41.2 (37.0-47.0) % MCV 83.6 (81.0-99.0) fL MCH 27.0 (27.0-31.0) pg MCHC 32.3 (32.0-36.0) g/dL RDW 15.9 H (12.0-15.0) % Plt Count 333 (130-450) 10^3/uL MPV 10.0 (7.9-10.8) fL Neut # (Auto) 10.8 H (1.5-6.6) 10^3/uL Lymph # (Auto) 0.5 L (1.5-3.5) 10^3/uL [place] # (Auto) 0.6 (0.0-1.0) 10^3/uL Eos # (Auto) 0.0 (0.0-0.7) 10^3/uL Baso # (Auto) 0.0 (0.0-0.1) 10^3/uL Absolute Nucleated RBC 0.00 x10^3/uL Nucleated RBC % 0.0 /100WBC Sodium 133 L (135-145) mmol/L Potassium 3.9 (3.5-5.0) mmol/L Chloride 99 L (101-111) mmol/L Carbon Dioxide 21 (21-32) mmol/L Anion Gap 13.0 (6-13) BUN 38 H (6-20) mg/dL Creatinine 1.0 (0.4-1.0) mg/dL Estimated GFR (MDRD) 53 L (>89) Glucose 110 H (70-100) mg/dL Calcium 9.1 (8.5-10.3) mg/dL ABX Reporting Has patient been on IV antibiotics over the past 48 hours?: No Assessment/Plan - Problem List (1) Acute respiratory failure with hypoxia Impression: Unfortunately, her oxygen requirements are increasing and she is now on high flow nasal cannula with an FiO2 of 80% at a flow of 40 L a minute. Her saturations are still in the low 90s. We discussed starting visit her today and she is now agreeable to this. Given her white count is also elevated today, we will start ceftriaxone and azithromycin as there may be a bacterial component to her pneumonia. Continue Decadron. I discussed with her that she will need to be transferred to the intensive care unit for closer monitoring. She may also need a trial of BiPAP. Continue supplemental oxygen for goal saturation greater than 88%. I spoke with both her and her regarding her critical illness and potential need for mechanical ventilation if she declines further. She did request the use of ivermectin but I explained to her that we do not use this as a therapy for COVID-19 and she understood. She had requested vitamin D, zinc, and vitamin C which I will start for her. (2) Pneumonia due to 2019 novel coronavirus Impression: This is the cause of her respiratory failure with hypoxia. She is now agreeable to remdesivir which we will start today with the loading dose. We will continue Decadron. We will also start antibiotics as mentioned above given the concern for bacterial component given her increasing white count. (3) History of aortic valve replacement Impression: She has a history of aortic valve replacement within the past 2 years. (4) Hypertension Impression: Her blood pressure is stable with systolic in the 130s. We will continue to monitor. (5) Hypothyroidism Impression: We will continue her home Cytomel.
[2021-03-16] MEDS ORDERED: REMDESIVIR 100MG VIAL 200 MG in SODIUM CHLORIDE 0.9% 250 ML IV ONE (10:00)
[2021-03-16] MEDS: AZITHROMYCIN INJ 500 MG in SODIUM CHLORIDE 0.9% 250 ML IV SCH (14:43)
--- NOTE | 2021-03-16 15:05 | XRAY Report ---
PROCEDURE: Chest 1 View X-Ray INDICATIONS: Worsening hypoxia. Covid. TECHNIQUE: One view of the chest was acquired. COMPARISON: CT pulmonary angiogram 03/14/2021, chest radiographs 03/12/2021 FINDINGS: Surgical changes and devices: A cardiac pacemaker is seen with pulse generator in the left chest. A prosthetic heart valve is seen. Lungs and pleura: No pleural effusions or pneumothorax. Bilateral opacities appear mildly progressed when compared to the prior radiographs and CT Mediastinum: Mediastinal contours appear normal. Heart size is normal. Bones and chest wall: No suspicious bony lesions. Overlying soft tissues appear unremarkable. IMPRESSION: Mildly worsened bilateral pulmonary opacities, most likely representing viral pneumonia in this patie nt with known COVID-19 infection. Reviewed by: Kvng Jean MD on 03/16/2021 3:04 PM PST Approved by: Kvng Jean MD on 03/16/2021 3:04 PM PST Station ID: [id number]
--- NOTE | 2021-03-16 15:14 | CONSULTATION NOTE ---
Consultation Report: Informed consent obtained from patient. Attempted PICC line x2, sterile precautions/technique maintained. Attempt x1 in right upper arm, unable to thread wire easily in vessel. Attempt abandoned. Hemostasis maintained. no complications. Attempt x2 in left upper arm. After numbing skin with lidocaine 1% 3 cc and insertion of finder needle for vascular access, pt requested for the procedure to be stopped and no longer continue to place PICC line. Procedure aborted. 2 PIVs placed in RUE for access.
[2021-03-16] MEDS: CHOLECALCIFEROL 25 MCG TABLET PO SCH (16:50)
[2021-03-16] MEDS: cefTRIAXone 2 GM in SODIUM CHLORIDE 0.9% MINIBAG 100 ML IV SCH (16:51)
[2021-03-16] MEDS: ATORVASTATIN 10 MG TABLET PO SCH (20:02)
[2021-03-16] MEDS ORDERED: diphenhydrAMINE 25 MG CAPSULE PO PRN (20:32)
[2021-03-16] MEDS: TEMAZEPAM 15 MG CAPSULE PO PRN (21:05)
[2021-03-17] MEDS: SODIUM CHLORIDE FLUSH 0.9% 10 ML SYRINGE IVP PRN (01:17)
[2021-03-17] MEDS: MORPHINE 2 MG/ML CARPUJECT IVP PRN ×2 (01:17→09:15)
[2021-03-17 05:30] LABS: BASOPHILS % (AUTO) 0.1 %; HCT - HEMATOCRIT 38.5 % (37.0-47.0); HGB - HEMOGLOBIN 12.4 g/dL (12.0-16.0); LYMPHOCYTES # (AUTO) 0.5 10^3/uL (1.5-3.5); LYMPHOCYTES % (AUTO) 6.1 %; MEAN CORPUSCULAR HEMOGLOBIN 26.9 pg (27.0-31.0); MEAN CORPUSCULAR HGB CONC 32.2 g/dL (32.0-36.0); MEAN CORPUSCULAR VOLUME 83.5 fL (81.0-99.0); MEAN PLATELET VOLUME 10.2 fL (7.9-10.8); MONOCYTES % (AUTO) 12.6 %; NEUTROPHILS # (AUTO) 6.7 10^3/uL (1.5-6.6); NEUTROPHILS % (AUTO) 80.7 %; PLT - PLATELET COUNT 302 10^3/uL (130-450); RED BLOOD COUNT 4.61 10^6/uL (4.20-5.40); RED CELL DISTRIBUTION WIDTH 15.9 % (12.0-15.0); WHITE BLOOD COUNT 8.3 x10^3/uL (4.8-10.8)
[2021-03-17 06:04] LABS: CALCIUM 8.9 mg/dL (8.5-10.3); CREATININE 0.9 mg/dL (0.4-1.0); MAGNESIUM 2.2 mg/dL (1.7-2.8); PHOSPHORUS 3.7 mg/dL (2.5-4.6); POTASSIUM 4.2 mmol/L (3.5-5.0)
[2021-03-17] MEDS: LIOTHYRONINE 25 MCG TABLET PO SCH (06:20)
[2021-03-17] MEDS: DEXAMETHASONE 4 MG/ML VIAL IVP SCH (09:12)
[2021-03-17] MEDS: ASPIRIN EC 81 MG TABLET PO SCH (09:13)
[2021-03-17] MEDS: CHOLECALCIFEROL 25 MCG TABLET PO SCH (09:13)
[2021-03-17] MEDS: cefTRIAXone 2 GM in SODIUM CHLORIDE 0.9% MINIBAG 100 ML IV SCH (09:13)
[2021-03-17] MEDS: ASCORBIC ACID 500 MG TABLET PO SCH (09:13)
[2021-03-17] MEDS: guaiFENesin 600 MG TABLET PO SCH ×2 (09:13→20:21)
[2021-03-17] MEDS: ZINC SULFATE 220 MG CAPSULE PO SCH (09:13)
[2021-03-17] MEDS: AZITHROMYCIN INJ 500 MG in SODIUM CHLORIDE 0.9% 250 ML IV SCH (09:13)
[2021-03-17] MEDS: SODIUM CHLORIDE FLUSH 0.9% 10 ML SYRINGE IVP SCH ×3 (09:14→20:21)
[2021-03-17] MEDS: ENOXAPARIN 40 MG/0.4 ML SYRINGE SUBQ SCH (09:14)
--- NOTE | 2021-03-17 10:20 | PROVIDER PROGRESS NOTE ---
Subjective - Prog Note Date Prog Note Date: 03/17/21 - Subjective Subjective: She feels improved compared to yesterday. Still feels short of breath but thinks this is slightly improved. Her appetite is also increased. She is happy she started the remdesivir. She did complain of chest has epigastric pain this morning lasted about 15 minutes when she was taking the BiPAP mask off. She states is a pressure/sharp pain. No nausea associated. It has since resolved. Current Medications - Current Medications Current Medications: Active Medications Acetaminophen (Acetaminophen 325 Mg Tablet) 650 mg PO Q4HR PRN PRN Reason: Pain 1 to 4 Last Admin: 03/16/21 23:50 Dose: 650 mg Documented by: Ascorbic Acid (Ascorbic Acid 500 Mg Tablet) 500 mg PO DAILY [facility] Last Admin: 03/17/21 09:13 Dose: 500 mg Documented by: Aspirin (Aspirin Ec 81 Mg Tablet) 81 mg PO DAILY [facility] Last Admin: 03/17/21 09:13 Dose: 81 mg Documented by: Atorvastatin Calcium (Atorvastatin 10 Mg Tablet) 20 mg PO QPM [facility] Last Admin: 03/16/21 20:02 Dose: 20 mg Documented by: Cholecalciferol (Cholecalciferol 25 Mcg Tablet) 50 mcg PO DAILY [facility] Last Admin: 03/17/21 09:13 Dose: 50 mcg Documented by: Dexamethasone (Dexamethasone 4 Mg/Ml Vial) 6 mg IVP DAILY [facility] Stop: 03/23/21 09:01 Last Admin: 03/17/21 09:12 Dose: 6 mg Documented by: Diphenhydramine HCl (Diphenhydramine 25 Mg Capsule) 25 mg PO QPM PRN PRN Reason: Insomnia Enoxaparin Sodium (Enoxaparin 40 Mg/0.4 Ml Syringe) 40 mg SUBQ DAILY [facility] Last Admin: 03/17/21 09:14 Dose: 40 mg Documented by: Guaifenesin (Guaifenesin 600 Mg Tablet) 600 mg PO BID [facility] Last Admin: 03/17/21 09:13 Dose: 600 mg Documented by: Hydralazine HCl (Hydralazine Inj 20 Mg/Ml Vial) 10 mg IVP Q4H PRN PRN Reason: PER PHYSICIAN ORDER Last Admin: 03/16/21 00:24 Dose: 10 mg Documented by: Remdesivir 100 mg/ Sodium (Chloride) 100 mls @ 200 mls/hr IV DAILY [facility] Stop: 03/20/21 09:29 Azithromycin 500 mg/ Sodium (Chloride) 250 mls @ 250 mls/hr IV DAILY [facility] Stop: 03/18/21 09:59 Last Admin: 03/17/21 09:13 Dose: 250 mls/hr Documented by: Ceftriaxone Sodium 2 gm/ (Sodium Chloride) 100 mls @ 200 mls/hr IV DAILY [facility] Stop: 03/20/21 09:29 Last Admin: 03/17/21 09:13 Dose: 200 mls/hr Documented by: Labetalol HCl (Labetalol 20 Mg/4 Ml Syringe) 10 mg IVP Q4H PRN PRN Reason: PER PHYSICIAN ORDER Liothyronine Sodium (Liothyronine 25 Mcg Tablet) 25 mcg PO QDAC [facility] Last Admin: 03/17/21 06:20 Dose: 25 mcg Documented by: Morphine Sulfate (Morphine 2 Mg/Ml Carpuject) 2 mg IVP Q2HR PRN PRN Reason: PAIN Last Admin: 03/17/21 09:15 Dose: 2 mg Documented by: Ondansetron HCl (Ondansetron 4 Mg/2 Ml Vial) 4 mg IVP Q6HR PRN PRN Reason: Nausea / Vomiting Last Admin: 03/16/21 08:18 Dose: 4 mg Documented by: Sodium Chloride (Sodium Chloride Flush 0.9% 10 Ml Syringe) 10 ml IVP PRN PRN PRN Reason: NEEDED PER PROVIDER ORDERS Last Admin: 03/17/21 01:17 Dose: 10 ml Documented by: Sodium Chloride (Sodium Chloride Flush 0.9% 10 Ml Syringe) 10 ml IVP 0100,0900,1700 [facility] Last Admin: 03/17/21 09:14 Dose: 10 ml Documented by: Temazepam (Temazepam 15 Mg Capsule) 15 mg PO QPM PRN PRN Reason: Insomnia Last Admin: 03/16/21 21:05 Dose: 15 mg Documented by: Throat Lozenges (Benzocaine/Menthol Lozenge) 1 lozenge MM Q2HR PRN PRN Reason: Throat pain Last Admin: 03/15/21 04:13 Dose: 1 lozenge Documented by: Zinc Sulfate (Zinc Sulfate 220 Mg Capsule) 220 mg PO DAILY [facility] Last Admin: 03/17/21 09:13 Dose: 220 mg Documented by: Aspirin [Aspirin EC] 81 mg PO DAILY 03/15/21 Liothyronine [Cytomel] 25 mcg PO QDAC 03/15/21 Meloxicam [Mobic] 1 tablet PO DAILY 03/15/21 Potassium Chloride [Klor-Con 10] 10 meq PO BIDWM 03/15/21 Rosuvastatin Calcium [Crestor] 10 mg PO DAILY 03/15/21 Objective - Vital Signs/Intake & Output Reviewed Vital Signs: Yes Vital Signs: Vital Signs Pulse Pulse Resp BP Pulse Ox 03/17/21 09:10 87 03/17/21 07:00 70 22 130/66 88 L Intake & Output: Intake & Output 03/14/21 03/15/21 03/16/21 03/17/21 23:59 23:59 23:59 23:59 Intake Total 198 196 2978.667 360 Output Total 600 425 150 250 Balance -731 192 9218.667 110 - Objective General Appearance: positive: No acute distress, Alert Eyes Bilateral: positive: Normal inspection, Conjunctivae nml ENT: positive: ENT inspection nml, Other (High flow nasal cannula in place) Neck: positive: Nml inspection Respiratory: positive: No respiratory distress, Other (Breath sounds are dimin ished with faint rhonchi. She is not tachypneic and does not appear in distress.) Cardiovascular: positive: Regular rate & rhythm. negative: Tachycardia Abdomen: positive: Non-tender, No distention. negative: Tenderness Skin: positive: Warm, Dry Extremities: positive: No pedal edema Neurologic/Psychiatric: positive: Motor nml. negative: Disoriented to person, Disoriented to place - Lab Results Fish Bones: 03/17/21 04:33 03/17/21 04:33 Other Labs: Lab Results x24hrs 03/17/21 03/17/21 03/16/21 Range/Units 04:33 04:33 17:00 WBC 8.3 (4.8-10.8) x10^3/uL RBC 4.61 (4.20-5.40) 10^6/uL Hgb 12.4 (12.0-16.0) g/dL Hct 38.5 (37.0-47.0) % MCV 83.5 (81.0-99.0) fL MCH 26.9 L (27.0-31.0) pg MCHC 32.2 (32.0-36.0) g/dL RDW 15.9 H (12.0-15.0) % Plt Count 302 (130-450) 10^3/uL MPV 10.2 (7.9-10.8) fL Neut # (Auto) 6.7 H (1.5-6.6) 10^3/uL Lymph # (Auto) 0.5 L (1.5-3.5) 10^3/uL [place] # (Auto) 1.0 (0.0-1.0) 10^3/uL Eos # (Auto) 0.0 (0.0-0.7) 10^3/uL Baso # (Auto) 0.0 (0.0-0.1) 10^3/uL Absolute Nucleated RBC 0.00 x10^3/uL Nucleated RBC % 0.0 /100WBC Sodium 138 (135-145) mmol/L Potassium 4.2 (3.5-5.0) mmol/L Chloride 104 (101-111) mmol/L Carbon Dioxide 23 (21-32) mmol/L Anion Gap 11.0 (6-13) BUN 36 H (6-20) mg/dL Creatinine 0.9 (0.4-1.0) mg/dL Estimated GFR (MDRD) 60 L (>89) Glucose 112 H (70-100) mg/dL Calcium 8.9 (8.5-10.3) mg/dL Phosphorus 3.7 (2.5-4.6) mg/dL Magnesium 2.2 (1.7-2.8) mg/dL Nasal Screen MRSA (PCR) NEGATIVE (NEGATIVE) Assessment/Plan - Problem List (1) Acute respiratory failure with hypoxia Impression: She appears to be stable compared to yesterday. She is on high flow nasal cannula with intermittent use of BiPAP. She is requiring 100% FiO2 at 4 L/min with the high flow nasal cannula and on BiPAP she is requiring FiO2 of 70%. She does appear comfortable and reports feeling less dyspneic today. Chest x-ray yesterday showed worsening infiltrates. We will continue supportive measures with BiPAP as needed otherwise she will be on high flow nasal cannula. We will continue him visited with today being day 2. Continue Decadron. Continue ceftriaxone and azithromycin. (2) Pneumonia due to 2019 novel coronavirus Impression: This is a cause of her acute hypoxic respiratory failure. She is on remdesivir and Decadron. We will also start her on antibiotics yesterday given her white count was rising and there could be a bacterial component to her pneumonia. Continue with plan as mentioned above. (3) Chest pressure Impression: This may have been gastrointestinal in nature but will need to rule out cardiac causes. I did obtain an EKG which looks unchanged compared to her prior EKG. No evidence of ischemia. We will check a troponin and trend these. They were initially mildly elevated on admission and this was felt to be demand ischemia due to her Covid pneumonia. (4) History of aortic valve replacement Impression: She has a history of aortic valve replacement within the past 2 years. (5) Hypertension Impression: She is hypertensive today with systolics in the 150s. We will start amlodipine 5 mg daily. (6) Hypothyroidism Impression: Continue Cytomel.
[2021-03-17] MEDS: REMDESIVIR 100MG VIAL 100 MG in SODIUM CHLORIDE 0.9% 100ML 100 ML IV SCH (10:52)
[2021-03-17] MEDS: amLODIPine 5 MG TABLET PO SCH (15:07)
[2021-03-17] MEDS ORDERED: CALCIUM CARBONATE CHEW 500 MG TABLET PO PRN (15:11)
[2021-03-17] MEDS: PANTOPRAZOLE 40 MG TABLET PO SCH (16:28)
[2021-03-17] MEDS: BENZOCAINE/MENTHOL LOZENGE MM PRN (16:28)
[2021-03-17] MEDS: TEMAZEPAM 15 MG CAPSULE PO PRN (20:21)
[2021-03-17] MEDS: ATORVASTATIN 10 MG TABLET PO SCH (20:21)
[2021-03-18] MEDS: SODIUM CHLORIDE FLUSH 0.9% 10 ML SYRINGE IVP SCH ×4 (00:20→23:36)
[2021-03-18] MEDS: MORPHINE 2 MG/ML CARPUJECT IVP PRN ×3 (00:20→22:33)
[2021-03-18] MEDS: SODIUM CHLORIDE FLUSH 0.9% 10 ML SYRINGE IVP PRN ×3 (04:16→13:06)
[2021-03-18 04:59] LABS: BASOPHILS % (AUTO) 0.2 %; HCT - HEMATOCRIT 40.4 % (37.0-47.0); HGB - HEMOGLOBIN 12.3 g/dL (12.0-16.0); LYMPHOCYTES # (AUTO) 0.8 10^3/uL (1.5-3.5); LYMPHOCYTES % (AUTO) 6.8 %; MEAN CORPUSCULAR HEMOGLOBIN 27.3 pg (27.0-31.0); MEAN CORPUSCULAR HGB CONC 30.4 g/dL (32.0-36.0); MEAN CORPUSCULAR VOLUME 89.6 fL (81.0-99.0); MEAN PLATELET VOLUME 11.7 fL (7.9-10.8); MONOCYTES # (AUTO) 0.9 10^3/uL (0.0-1.0); MONOCYTES % (AUTO) 7.6 %; NEUTROPHILS # (AUTO) 10.1 10^3/uL (1.5-6.6); PLT - PLATELET COUNT 244 10^3/uL (130-450); RED BLOOD COUNT 4.51 10^6/uL (4.20-5.40); RED CELL DISTRIBUTION WIDTH 16.2 % (12.0-15.0); WHITE BLOOD COUNT 11.8 x10^3/uL (4.8-10.8)
[2021-03-18 05:04] LABS: CALCIUM 8.8 mg/dL (8.5-10.3); CREATININE 0.7 mg/dL (0.4-1.0); POTASSIUM 3.9 mmol/L (3.5-5.0)
[2021-03-18 05:05] LABS: CALCIUM, IONIZED 1.16 mmol/L (1.15-1.33); VBG PH 7.481 (7.31-7.41)
[2021-03-18 05:14] LABS: MAGNESIUM 2.1 mg/dL (1.7-2.8); PHOSPHORUS 3.1 mg/dL (2.5-4.6)
[2021-03-18] MEDS ORDERED: POTASSIUM CHLORIDE 20 MEQ TABLET PO ONE (06:21)
[2021-03-18] MEDS: LIOTHYRONINE 25 MCG TABLET PO SCH (06:46)
[2021-03-18] MEDS: PANTOPRAZOLE 40 MG TABLET PO SCH (06:46)
--- NOTE | 2021-03-18 07:30 | PROVIDER PROGRESS NOTE ---
Subjective - Prog Note Date Prog Note Date: 03/18/21 - Subjective Subjective: She feels about the same compared to yesterday. May be slightly improved. She still has significant dyspnea with minimal exertion. She is able to tolerate BiPAP for a few hours overnight. Denies any chest pain. Has been having reflux and heartburn at times. Current Medications - Current Medications Current Medications: Active Medications Acetaminophen (Acetaminophen 325 Mg Tablet) 650 mg PO Q4HR PRN PRN Reason: Pain 1 to 4 Last Admin: 03/16/21 23:50 Dose: 650 mg Documented by: Amlodipine Besylate (Amlodipine 5 Mg Tablet) 5 mg PO DAILY [facility] Last Admin: 03/17/21 15:07 Dose: 5 mg Documented by: Ascorbic Acid (Ascorbic Acid 500 Mg Tablet) 500 mg PO DAILY [facility] Last Admin: 03/17/21 09:13 Dose: 500 mg Documented by: Aspirin (Aspirin Ec 81 Mg Tablet) 81 mg PO DAILY [facility] Last Admin: 03/17/21 09:13 Dose: 81 mg Documented by: Atorvastatin Calcium (Atorvastatin 10 Mg Tablet) 20 mg PO QPM [facility] Last Admin: 03/17/21 20:21 Dose: 20 mg Documented by: Calcium Carbonate/Glycine (Calcium Carbonate Chew 500 Mg Tablet) 500 mg PO BID PRN PRN Reason: Heartburn Last Admin: 03/17/21 16:28 Dose: 500 mg Documented by: Cholecalciferol (Cholecalciferol 25 Mcg Tablet) 50 mcg PO DAILY [facility] Last Admin: 03/17/21 09:13 Dose: 50 mcg Documented by: Dexamethasone (Dexamethasone 4 Mg/Ml Vial) 6 mg IVP DAILY [facility] Stop: 03/23/21 09:01 Last Admin: 03/17/21 09:12 Dose: 6 mg Documented by: Diphenhydramine HCl (Diphenhydramine 25 Mg Capsule) 25 mg PO QPM PRN PRN Reason: Insomnia Enoxaparin Sodium (Enoxaparin 40 Mg/0.4 Ml Syringe) 40 mg SUBQ DAILY [facility] Last Admin: 03/17/21 09:14 Dose: 40 mg Documented by: Guaifenesin (Guaifenesin 600 Mg Tablet) 600 mg PO BID [facility] Last Admin: 03/17/21 20:21 Dose: 600 mg Documented by: Hydralazine HCl (Hydralazine Inj 20 Mg/Ml Vial) 10 mg IVP Q4H PRN PRN Reason: PER PHYSICIAN ORDER Last Admin: 03/16/21 00:24 Dose: 10 mg Documented by: Remdesivir 100 mg/ Sodium (Chloride) 100 mls @ 200 mls/hr IV DAILY [facility] Stop: 03/20/21 09:29 Last Infusion: 03/17/21 11:35 Dose: Infused Documented by: Ceftriaxone Sodium 2 gm/ (Sodium Chloride) 100 mls @ 200 mls/hr IV DAILY [facility] Stop: 03/20/21 09:29 Last Infusion: 03/17/21 09:45 Dose: Infused Documented by: Labetalol HCl (Labetalol 20 Mg/4 Ml Syringe) 10 mg IVP Q4H PRN PRN Reason: PER PHYSICIAN ORDER Liothyronine Sodium (Liothyronine 25 Mcg Tablet) 25 mcg PO QDAC [facility] Last Admin: 03/18/21 06:46 Dose: 25 mcg Documented by: Morphine Sulfate (Morphine 2 Mg/Ml Carpuject) 2 mg IVP Q2HR PRN PRN Reason: PAIN Last Admin: 03/18/21 00:20 Dose: 2 mg Documented by: Ondansetron HCl (Ondansetron 4 Mg/2 Ml Vial) 4 mg IVP Q6HR PRN PRN Reason: Nausea / Vomiting Last Admin: 03/16/21 08:18 Dose: 4 mg Documented by: Pantoprazole Sodium (Pantoprazole 40 Mg Tablet) 40 mg PO QDAC [facility] Last Admin: 03/18/21 06:46 Dose: 40 mg Documented by: Polyethylene Glycol (Polyethylene Glycol 3350 17 Gm Packet) 17 gm PO DAILY [facility] Sodium Chloride (Sodium Chloride Flush 0.9% 10 Ml Syringe) 10 ml IVP PRN PRN PRN Reason: NEEDED PER PROVIDER ORDERS Last Admin: 03/18/21 04:16 Dose: 10 ml Documented by: Sodium Chloride (Sodium Chloride Flush 0.9% 10 Ml Syringe) 10 ml IVP 0100,0 900,1700 [facility] Last Admin: 03/18/21 00:20 Dose: 10 ml Documented by: Temazepam (Temazepam 15 Mg Capsule) 15 mg PO QPM PRN PRN Reason: Insomnia Last Admin: 03/17/21 20:21 Dose: 15 mg Documented by: Throat Lozenges (Benzocaine/Menthol Lozenge) 1 lozenge MM Q2HR PRN PRN Reason: Throat pain Last Admin: 03/17/21 16:28 Dose: 1 lozenge Documented by: Zinc Sulfate (Zinc Sulfate 220 Mg Capsule) 220 mg PO DAILY [facility] Last Admin: 03/17/21 09:13 Dose: 220 mg Documented by: Aspirin [Aspirin EC] 81 mg PO DAILY 03/15/21 Liothyronine [Cytomel] 25 mcg PO QDAC 03/15/21 Meloxicam [Mobic] 1 tablet PO DAILY 03/15/21 Potassium Chloride [Klor-Con 10] 10 meq PO BIDWM 03/15/21 Rosuvastatin Calcium [Crestor] 10 mg PO DAILY 03/15/21 Objective - Vital Signs/Intake & Output Reviewed Vital Signs: Yes Vital Signs: Vital Signs Temp Pulse Pulse Resp BP Pulse Ox 03/18/21 07:00 78 28 H 98 03/18/21 06:00 69 31 H 152/64 H 92 03/18/21 05:05 76 03/18/21 05:00 82 36 H 155/74 H 94 03/18/21 04:13 36.6 C 03/18/21 04:00 76 30 H 147/61 H 96 Intake & Output: Intake & Output 03/15/21 03/16/21 03/17/21 03/18/21 23:59 23:59 23:59 23:59 Intake Total 890 9877.600 7466 250 Output Total 425 150 900 0 Balance 465 2469.175 0861 250 - Objective General Appearance: positive: Alert, Mild distress Eyes Bilateral: positive: Normal inspection, Conjunctivae nml ENT: positive: ENT inspection nml, Other (High flow nasal cannula in place.) Neck: positive: Nml inspection Respiratory: positive: No respiratory distress, Other (She is not in distress but is tachypneic. Faint rhonchi bilaterally. Breath sounds diminished) Cardiovascular: positive: Regular rate & rhythm. negative: Tachycardia, Sys tolic murmur Abdomen: positive: Non-tender, No distention. negative: Tenderness Skin: positive: Warm, Dry Extremities: positive: No pedal edema Neurologic/Psychiatric: negative: Disoriented to person, Disoriented to place - Lab Results Fish Bones: 03/18/21 04:24 03/18/21 04:24 Other Labs: Lab Results x24hrs 03/18/21 03/18/21 03/18/21 Range/Units 04:24 04:24 04:24 WBC (4.8-10.8) x10^3/uL RBC (4.20-5.40) 10^6/uL Hgb (12.0-16.0) g/dL Hct (37.0-47.0) % MCV (81.0-99.0) fL MCH (27.0-31.0) pg MCHC (32.0-36.0) g/dL RDW (12.0-15.0) % Plt Count (130-450) 10^3/uL MPV (7.9-10.8) fL Neut # (Auto) (1.5-6.6) 10^3/uL Lymph # (Auto) (1.5-3.5) 10^3/uL [place] # (Auto) (0.0-1.0) 10^3/uL Eos # (Auto) (0.0-0.7) 10^3/uL Baso # (Auto) (0.0-0.1) 10^3/uL Absolute Nucleated RBC x10^3/uL Nucleated RBC % /100WBC VBG pH 7.481 H (7.31-7.41) Ionized Calcium 1.16 (1.15-1.33) mmol/L Sodium 134 L (135-145) mmol/L Potassium 3.9 (3.5-5.0) mmol/L Chloride 102 (101-111) mmol/L Carbon Dioxide 20 L (21-32) mmol/L Anion Gap 12.0 (6-13) BUN 30 H (6-20) mg/dL Creatinine 0.7 (0.4-1.0) mg/dL Estimated GFR (MDRD) 81 L (>89) Glucose 166 H (70-100) mg/dL Calcium 8.8 (8.5-10.3) mg/dL Phosphorus 3.1 (2.5-4.6) mg/dL Magnesium 2.1 (1.7-2.8) mg/dL Troponin I High Sens (2.3-14.8) ng/L 03/18/21 03/17/21 03/17/21 Range/Units 04:24 15:29 12:08 WBC 11.8 H (4.8-10.8) x10^3/uL RBC 4.51 (4.20-5.40) 10^6/uL Hgb 12.3 (12.0-16.0) g/dL Hct 40.4 (37.0-47.0) % MCV 89.6 (81.0-99.0) fL MCH 27.3 (27.0-31.0) pg MCHC 30.4 L (32.0-36.0) g/dL RDW 16.2 H (12.0-15.0) % Plt Count 244 (130-450) 10^3/uL MPV 11.7 H (7.9-10.8) fL Neut # (Auto) 10.1 H (1.5-6.6) 10^3/uL Lymph # (Auto) 0.8 L (1.5-3.5) 10^3/uL [place] # (Auto) 0.9 (0.0-1.0) 10^3/uL Eos # (Auto) 0.0 (0.0-0.7) 10^3/uL Baso # (Auto) 0.0 (0.0-0.1) 10^3/uL Absolute Nucleated RBC 0.00 x10^3/uL Nucleated RBC % 0.0 /100WBC VBG pH (7.31-7.41) Ionized Calcium (1.15-1.33) mmol/L Sodium (135-145) mmol/L Potassium (3.5-5.0) mmol/L Chloride (101-111) mmol/L Carbon Dioxide (21-32) mmol/L Anion Gap (6-13) BUN (6-20) mg/dL Creatinine (0.4-1.0) mg/dL Estimated GFR (MDRD) (>89) Glucose (70-100) mg/dL Calcium (8.5-10.3) mg/dL Phosphorus (2.5-4.6) mg/dL Magnesium (1.7-2.8) mg/dL Troponin I High Sens 9.7 9.3 (2.3-14.8) ng/L Assessment/Plan - Problem List (1) Acute respiratory failure with hypoxia Impression: She appears to have stabilized over the past 24 to 48 hours. Her oxygen requirements have not improved but she is not worse. She remains on high flow nasal cannula with the intermittent use of BiPAP. Her oxygen requirements are still quite high on the high flow nasal cannula but it is stable and her oxygen saturations today are in the mid to high 90s. We will look to hopefully begin to wean this down later today. We will continue her on remdesivir and Decadron. She also remains on ceftriaxone. She has now completed 3 days of azithrom ycin. We will continue with supportive care and I am hopeful she may turn the corner and begin to show improvement. (2) Pneumonia due to 2019 novel coronavirus Impression: This is the cause of her acute hypoxic respiratory failure. She remains on remdesivir and Decadron. We have also started her on antibiotics given her white count had increased and there was concern for bacterial component to her pneumonia. Continue with the plan as mentioned above. (3) Chest pressure Impression: This is resolved. EKG yesterday looked unchanged compared to her prior EKG. Troponins were trended and these remained normal. Her pain is like related to GERD/reflux. We will start her on Protonix and Tums as needed. (4) History of aortic valve replacement Impression: She has a history of aortic valve replacement within the past 2 years. (5) Hypertension Impression: Her blood pressure remains poorly controlled. Her systolics are in the 160s. We did add amlodipine yesterday and if her blood pressure is elevated we will increase this to 10 mg. We will continue with labetalol IV as needed. (6) Hypothyroidism Impression: Continue Cytomel.
[2021-03-18 08:50] LABS: ALBUMIN 3.1 g/dL (3.2-5.5); BILIRUBIN,DIRECT 0.2 mg/dL (0.1-0.5); BILIRUBIN,TOTAL 0.4 mg/dL (0.2-1.0); TOTAL PROTEIN 6.5 g/dL (6.7-8.2)
[2021-03-18] MEDS: amLODIPine 5 MG TABLET PO SCH (11:02)
[2021-03-18] MEDS: ZINC SULFATE 220 MG CAPSULE PO SCH (11:02)
[2021-03-18] MEDS: ASPIRIN EC 81 MG TABLET PO SCH (11:02)
[2021-03-18] MEDS: ASCORBIC ACID 500 MG TABLET PO SCH (11:03)
[2021-03-18] MEDS: guaiFENesin 600 MG TABLET PO SCH ×2 (11:03→21:01)
[2021-03-18] MEDS: polyethylene glycoL 3350 17 GM PACKET PO SCH (11:11)
[2021-03-18] MEDS: DEXAMETHASONE 4 MG/ML VIAL IVP SCH (11:34)
[2021-03-18] MEDS: cefTRIAXone 2 GM in SODIUM CHLORIDE 0.9% MINIBAG 100 ML IV SCH (11:45)
[2021-03-18] MEDS: AZITHROMYCIN INJ 500 MG in SODIUM CHLORIDE 0.9% 250 ML IV SCH (11:48)
[2021-03-18] MEDS: CHOLECALCIFEROL 25 MCG TABLET PO SCH (11:57)
[2021-03-18] MEDS: ENOXAPARIN 40 MG/0.4 ML SYRINGE SUBQ SCH (11:59)
[2021-03-18] MEDS: hydrALAZINE INJ 20 MG/ML VIAL IVP PRN (12:03)
[2021-03-18] MEDS: REMDESIVIR 100MG VIAL 100 MG in SODIUM CHLORIDE 0.9% 100ML 100 ML IV SCH (12:18)
--- NOTE | 2021-03-18 14:20 | CONSULTATION NOTE ---
Consultation Report: Called to place additional IV line. A #20G IV was started to left FA x1 attempt.
[2021-03-18] MEDS ORDERED: IBUPROFEN 400 MG TABLET PO PRN (15:02)
[2021-03-18] MEDS: ATORVASTATIN 10 MG TABLET PO SCH (21:00)
[2021-03-18] MEDS: TEMAZEPAM 15 MG CAPSULE PO PRN (22:33)
[2021-03-19] MEDS: PANTOPRAZOLE 40 MG TABLET PO SCH (06:13)
[2021-03-19] MEDS: LIOTHYRONINE 25 MCG TABLET PO SCH (06:13)
[2021-03-19 06:17] LABS: CALCIUM, IONIZED 1.18 mmol/L (1.15-1.33); VBG PH 7.481 (7.31-7.41)
[2021-03-19 06:20] LABS: BASOPHILS % (AUTO) 0.2 %; LYMPHOCYTES # (AUTO) 0.7 10^3/uL (1.5-3.5); LYMPHOCYTES % (AUTO) 5.1 %; MEAN CORPUSCULAR HEMOGLOBIN 26.9 pg (27.0-31.0); MEAN CORPUSCULAR HGB CONC 32.4 g/dL (32.0-36.0); MEAN PLATELET VOLUME 9.8 fL (7.9-10.8); MONOCYTES # (AUTO) 0.9 10^3/uL (0.0-1.0); MONOCYTES % (AUTO) 6.9 %; NEUTROPHILS # (AUTO) 11.3 10^3/uL (1.5-6.6); PLT - PLATELET COUNT 308 10^3/uL (130-450); RED BLOOD COUNT 4.46 10^6/uL (4.20-5.40); RED CELL DISTRIBUTION WIDTH 15.8 % (12.0-15.0); WHITE BLOOD COUNT 12.9 x10^3/uL (4.8-10.8)
[2021-03-19 06:32] LABS: CALCIUM 8.9 mg/dL (8.5-10.3); CREATININE 0.7 mg/dL (0.4-1.0); MAGNESIUM 2.1 mg/dL (1.7-2.8); PHOSPHORUS 3.4 mg/dL (2.5-4.6)
[2021-03-19] MEDS: ZINC SULFATE 220 MG CAPSULE PO SCH (08:55)
[2021-03-19] MEDS: CHOLECALCIFEROL 25 MCG TABLET PO SCH (08:55)
[2021-03-19] MEDS: ACETAMINOPHEN 325 MG TABLET PO PRN (08:55)
[2021-03-19] MEDS: amLODIPine 5 MG TABLET PO SCH (08:55)
[2021-03-19] MEDS: ASCORBIC ACID 500 MG TABLET PO SCH (08:56)
[2021-03-19] MEDS: guaiFENesin 600 MG TABLET PO SCH ×2 (08:56→21:19)
[2021-03-19] MEDS: polyethylene glycoL 3350 17 GM PACKET PO SCH (08:56)
[2021-03-19] MEDS: ASPIRIN EC 81 MG TABLET PO SCH (08:56)
[2021-03-19] MEDS: hydrALAZINE INJ 20 MG/ML VIAL IVP PRN (09:04)
[2021-03-19] MEDS: DEXAMETHASONE 4 MG/ML VIAL IVP SCH (09:06)
[2021-03-19] MEDS: SODIUM CHLORIDE FLUSH 0.9% 10 ML SYRINGE IVP SCH ×3 (09:07→21:19)
[2021-03-19] MEDS: SODIUM CHLORIDE FLUSH 0.9% 10 ML SYRINGE IVP PRN ×5 (09:12→14:03)
[2021-03-19 09:34] LABS: ABG BASE EXCESS 1.9 mmol/L (-2.0-3.0); ABG HCO3 23.5 mmol/L (22.0-26.0); ABG OXYGEN SATURATION 89 % (94-98); ABG PCO2 28 mmHg (34-45); ABG PH 7.54 (7.35-7.45); ABG TCO2 24.3 MMOL/L (21.0-29.0)
[2021-03-19 09:37] LABS: ABG PO2 51 mmHg (80-100)
[2021-03-19 09:38] LABS: ALLEN TEST POSITIVE
[2021-03-19] MEDS: ENOXAPARIN 40 MG/0.4 ML SYRINGE SUBQ SCH (10:40)
[2021-03-19] MEDS: REMDESIVIR 100MG VIAL 100 MG in SODIUM CHLORIDE 0.9% 100ML 100 ML IV SCH (10:43)
[2021-03-19] MEDS ORDERED: VANCOMYCIN INJ 2 GM in SODIUM CHLORIDE 0.9% 500 ML IV ONE (11:00)
--- NOTE | 2021-03-19 11:20 | PROVIDER PROGRESS NOTE ---
Subjective - Prog Note Date Prog Note Date: 03/19/21 - Subjective Subjective: She feels less short of breath when she is on BiPAP. Feels more fatigued and just miserable overall today. She is more dyspneic on the high flow nasal cannula. Current Medications - Current Medications Current Medications: Active Medications Acetaminophen (Acetaminophen 325 Mg Tablet) 650 mg PO Q4HR PRN PRN Reason: Pain 1 to 4 Last Admin: 03/19/21 08:55 Dose: 650 mg Documented by: Amlodipine Besylate (Amlodipine 5 Mg Tablet) 5 mg PO DAILY [facility] Last Admin: 03/19/21 08:55 Dose: 5 mg Documented by: Ascorbic Acid (Ascorbic Acid 500 Mg Tablet) 500 mg PO DAILY [facility] Last Admin: 03/19/21 08:56 Dose: 500 mg Documented by: Aspirin (Aspirin Ec 81 Mg Tablet) 81 mg PO DAILY [facility] Last Admin: 03/19/21 08:56 Dose: 81 mg Documented by: Atorvastatin Calcium (Atorvastatin 10 Mg Tablet) 20 mg PO QPM [facility] Last Admin: 03/18/21 21:00 Dose: 20 mg Documented by: Calcium Carbonate/Glycine (Calcium Carbonate Chew 500 Mg Tablet) 500 mg PO BID PRN PRN Reason: Heartburn Last Admin: 03/17/21 16:28 Dose: 500 mg Documented by: Cholecalciferol (Cholecalciferol 25 Mcg Tablet) 50 mcg PO DAILY [facility] Last Admin: 03/19/21 08:55 Dose: 50 mcg Documented by: Dexamethasone (Dexamethasone 4 Mg/Ml Vial) 6 mg IVP DAILY [facility] Stop: 03/23/21 09:01 Last Admin: 03/19/21 09:06 Dose: 6 mg Documented by: Diphenhydramine HCl (Diphenhydramine 25 Mg Capsule) 25 mg PO QPM PRN PRN Reason: Insomnia Enoxaparin Sodium (Enoxaparin 40 Mg/0.4 Ml Syringe) 40 mg SUBQ DAILY [facility] Last Admin: 03/19/21 10:40 Dose: 40 mg Documented by: Guaifenesin (Guaifenesin 600 Mg Tablet) 600 mg PO BID [facility] Last Admin: 03/19/21 08:56 Dose: 600 mg Documented by: Hydralazine HCl (Hydralazine Inj 20 Mg/Ml Vial) 10 mg IVP Q4H PRN PRN Reason: PER PHYSICIAN ORDER Last Admin: 03/19/21 09:04 Dose: 10 mg Documented by: Remdesivir 100 mg/ Sodium (Chloride) 100 mls @ 200 mls/hr IV DAILY [facility] Stop: 03/20/21 09:29 Last Admin: 03/19/21 10:43 Dose: 200 mls/hr Documented by: Cefepime HCl 2 gm/ Sodium (Chloride) 100 mls @ 200 mls/hr IV BID [facility] Last Admin: 03/19/21 11:23 Dose: 200 mls/hr Documented by: Vancomycin HCl 2 gm/ Sodium (Chloride) 500 mls @ 250 mls/hr IV ONCE ONE Stop: 03/19/21 12:59 Last Admin: 03/19/21 11:24 Dose: 250 mls/hr Documented by: Vancomycin HCl 1 gm/ Sodium (Chloride) 250 mls @ 167 mls/hr IV Q12H [facility] Ibuprofen (Ibuprofen 400 Mg Tablet) 400 mg PO Q6HR PRN PRN Reason: PAIN Labetalol HCl (Labetalol 20 Mg/4 Ml Syringe) 10 mg IVP Q4H PRN PRN Reason: PER PHYSICIAN ORDER Liothyronine Sodium (Liothyronine 25 Mcg Tablet) 25 mcg PO QDAC [facility] Last Admin: 03/19/21 06:13 Dose: 25 mcg Documented by: Morphine Sulfate (Morphine 2 Mg/Ml Carpuject) 2 mg IVP Q2HR PRN PRN Reason: PAIN Last Admin: 03/18/21 22:33 Dose: 2 mg Documented by: Ondansetron HCl (Ondansetron 4 Mg/2 Ml Vial) 4 mg IVP Q6HR PRN PRN Reason: Nausea / Vomiting Last Admin: 03/16/21 08:18 Dose: 4 mg Documented by: Pantoprazole Sodium (Pantoprazole 40 Mg Tablet) 40 mg PO QDAC [facility] Last Admin: 03/19/21 06:13 Dose: 40 mg Documented by: Polyethylene Glycol (Polyethylene Glycol 3350 17 Gm Packet) 17 gm PO DAILY [facility] Last Admin: 03/19/21 08:56 Dose: 17 gm Documented by: Sodium Chloride (Sodium Chloride Flush 0.9% 10 Ml Syringe) 10 ml IVP PRN PRN PRN Reason: NEEDED PER PROVIDER ORDERS Last Admin: 03/19/21 11:24 Dose: 10 ml Documented by: Sodium Chloride (Sodium Chloride Flush 0.9% 10 Ml Syringe) 10 ml IVP 0100,0900,1700 [facility] Last Admin: 03/19/21 09:07 Dose: 10 ml Documented by: Temazepam (Temazepam 15 Mg Capsule) 15 mg PO QPM PRN PRN Reason: Insomnia Last Admin: 03/18/21 22:33 Dose: 15 mg Documented by: Throat Lozenges (Benzocaine/Menthol Lozenge) 1 lozenge MM Q2HR PRN PRN Reason: Throat pain Last Admin: 03/17/21 16:28 Dose: 1 lozenge Documented by: Zinc Sulfate (Zinc Sulfate 220 Mg Capsule) 220 mg PO DAILY [facility] Last Admin: 03/19/21 08:55 Dose: 220 mg Documented by: Aspirin [Aspirin EC] 81 mg PO DAILY 03/15/21 Liothyronine [Cytomel] 25 mcg PO QDAC 03/15/21 Meloxicam [Mobic] 1 tablet PO DAILY 03/15/21 Potassium Chloride [Klor-Con 10] 10 meq PO BIDWM 03/15/21 Rosuvastatin Calcium [Crestor] 10 mg PO DAILY 03/15/21 Objective - Vital Signs/Intake & Output Reviewed Vital Signs: Yes Vital Signs: Vital Signs Temp Pulse Pulse Resp BP BP Pulse Ox 03/19/21 11:05 98 03/19/21 11:00 100 35 H 147/60 H 96 03/19/21 10:00 102 H 31 H 160/57 H 160/57 H 97 03/19/21 09:34 101 H 03/19/21 09:04 163/61 H 03/19/21 09:00 103 H 31 H 163/61 H 91 L 03/19/21 08:00 37.2 C 95 30 H 162/63 H 89 L Intake & Output: Intake & Output 03/16/21 03/17/21 03/18/21 03/19/21 23:59 23:59 23:59 23:59 Intake Total 1401.871 4927 1830 250 Output Total 150 900 425 100 Balance 5515.500 4637 1405 150 - Objective General Appearance: positive: Other (Appears ill and fatigued.) Eyes Bilateral: positive: Normal inspection, Conjunctivae nml ENT: positive: ENT inspection nml, Other (High flow nasal cannula in place.) Respiratory: positive: Other (She appears in more distress today and is tachypneic. Breath sounds diminished with faint rhonchi). negative: No respiratory distress Cardiovascular: positive: Tachycardia. negative: Irregularly irregular, Systolic murmur Skin: positive: Warm, Dry Extremities: positive: No pedal edema Neurologic/Psychiatric: negative: Disoriented to person, Disoriented to place - Lab Results Fish Bones: 03/19/21 06:06 03/19/21 06:06 Other Labs: Lab Results x24hrs 03/19/21 03/19/21 03/19/21 Range/Units 09:28 06:06 06:06 WBC (4.8-10.8) x10^3/uL RBC (4.20-5.40) 10^6/uL Hgb (12.0-16.0) g/dL Hct (37.0-47.0) % MCV (81.0-99.0) fL MCH (27.0-31.0) pg MCHC (32.0-36.0) g/dL RDW (12.0-15.0) % Plt Count (130-450) 10^3/uL MPV (7.9-10.8) fL Neut # (Auto) (1.5-6.6) 10^3/uL Lymph # (Auto) (1.5-3.5) 10^3/uL [place] # (Auto) (0.0-1.0) 10^3/uL Eos # (Auto) (0.0-0.7) 10^3/uL Baso # (Auto) (0.0-0.1) 10^3/uL Absolute Nucleated RBC x10^3/uL Nucleated RBC % /100WBC Bld Gas Analysis Time 09 Sample Site RIGHT RADIAL ABG pH 7.54 H (7.35-7.45) ABG pCO2 28 L (34-45) mmHg ABG pO2 51 L* (80-100) mmHg ABG HCO3 23.5 (22.0-26.0) mmol/L ABG Total CO2 24.3 (21.0-29.0) MMOL/L ABG O2 Saturation 89 L (94-98) % ABG Base Excess 1.9 (-2.0-3.0) mmol/L Shalom Test POSITIVE VBG pH 7.481 H (7.31-7.41) Ionized Calcium 1.18 (1.15-1.33) mmol/L O2 Delivery Device NASAL CANNULA O2 Liters/Min 55.00 LPM FiO2 100.00 Sodium 136 (135-145) mmol/L Potassium 4.0 (3.5-5.0) mmol/L Chloride 100 L (101-111) mmol/L Carbon Dioxide 26 (21-32) mmol/L Anion Gap 10.0 (6-13) BUN 30 H (6-20) mg/dL Creatinine 0.7 (0.4-1.0) mg/dL Estimated GFR (MDRD) 81 L (>89) Glucose 94 (70-100) mg/dL Calcium 8.9 (8.5-10.3) mg/dL Phosphorus 3.4 (2.5-4.6) mg/dL Magnesium 2.1 (1.7-2.8) mg/dL 03/19/21 Range/Units 06:06 WBC 12.9 H (4.8-10.8) x10^3/uL RBC 4.46 (4.20-5.40) 10^6/uL Hgb 12.0 (12.0-16.0) g/dL Hct 37.0 (37.0-47.0) % MCV 83.0 (81.0-99.0) fL MCH 26.9 L (27.0-31.0) pg MCHC 32.4 (32.0-36.0) g/dL RDW 15.8 H (12.0-15.0) % Plt Count 308 (130-450) 10^3/uL MPV 9.8 (7.9-10.8) fL Neut # (Auto) 11.3 H (1.5-6.6) 10^3/uL Lymph # (Auto) 0.7 L (1.5-3.5) 10^3/uL [place] # (Auto) 0.9 (0.0-1.0) 10^3/uL Eos # (Auto) 0.0 (0.0-0.7) 10^3/uL Baso # (Auto) 0.0 (0.0-0.1) 10^3/uL Absolute Nucleated RBC 0.00 x10^3/uL Nucleated RBC % 0.0 /100WBC Bld Gas Analysis Time Sample Site ABG pH (7.35-7.45) ABG pCO2 (34-45) mmHg ABG pO2 (80-100) mmHg ABG HCO3 (22.0-26.0) mmol/L ABG Total CO2 (21.0-29.0) MMOL/L ABG O2 Saturation (94-98) % ABG Base Excess (-2.0-3.0) mmol/L Shalom Test VBG pH (7.31-7.41) Ionized Calcium (1.15-1.33) mmol/L O2 Delivery Device O2 Liters/Min LPM FiO2 Sodium (135-145) mmol/L Potassium (3.5-5.0) mmol/L Chloride (101-111) mmol/L Carbon Dioxide (21-32) mmol/L Anion Gap (6-13) BUN (6-20) mg/dL Creatinine (0.4-1.0) mg/dL Estimated GFR (MDRD) (>89) Glucose (70-100) mg/dL Calcium (8.5-10.3) mg/dL Phosphorus (2.5-4.6) mg/dL Magnesium (1.7-2.8) mg/dL Assessment/Plan - Problem List (1) Acute respiratory failure with hypoxia Impression: She appears worse today from a respiratory standpoint. She is more dyspneic and appears fatigued. Her respiratory failure is secondary to COVID-[address] her back on BiPAP as she does much better with this. She is only requiring an FiO2 of 70% with BiPAP and more importantly, she is less tachypneic. We will obtain an ABG to ensure there is no evidence of hypercapnia. We will continue remdesivir and Decadron. We will switch her a ntibiotics to vancomycin and cefepime given her white count is rising and she is more dyspneic. I spoke with her regarding her current condition and informed her we still may need to intubate her. She is open to this but absolutely only as a last resort. I did speak with her to inform her of her critical condition. He and their son will be coming in today to visit the patient. (2) Pneumonia due to 2019 novel coronavirus Impression: This is the cause of her respiratory failure. Unfortunate she is declining today as mentioned above. We will change her antibiotics to vancomycin and cefepime. Continue Decadron and remdesivir. Her overall prognosis is guarded. (3) History of aortic valve replacement Impression: She has a history of aortic valve replacement within the past 2 years. (4) Hypertension Impression: She is still hypertensive but this is stable in the 140s. We will continue amlodipine and use labetalol as needed. (5) Hypothyroidism Impression: Continue cytomel.
[2021-03-19] MEDS: CEFEPIME 2 GM in SODIUM CHLORIDE 0.9% MINIBAG 100 ML IV SCH ×2 (11:23→21:13)
[2021-03-19 11:35] LABS: ABG PCO2 31 mmHg (34-45); ABG PH 7.53 (7.35-7.45)
[2021-03-19 11:36] LABS: ABG BASE EXCESS 3.3 mmol/L (-2.0-3.0); ABG HCO3 25.3 mmol/L (22.0-26.0); ABG OXYGEN SATURATION 93 % (94-98); ABG PO2 63 mmHg (80-100); ABG TCO2 26.3 MMOL/L (21.0-29.0); ALLEN TEST POSITIVE
[2021-03-19] MEDS: MORPHINE 2 MG/ML CARPUJECT IVP PRN (14:02)
--- NOTE | 2021-03-19 14:23 | PHARMACY PROGRESS NOTE ---
- Therapy Status Vancomycin regimen day #: 1 Therapy status: Awaiting steady state Basis for treatment: Empirical Treatment indication: pneumonia Trough goal: 15-20 Concurrent antibiotics: cefepime - BENJAMIN Risk Risk level for Acute Kidney Injury: Moderate Acute Kidney Injury risk factors: Goal trough >15, Admission to ICU - Monitoring and Recommendation Clinical response to treatment: I&O Previous 24 hours 03/17/21 03/18/21 03/19/21 23:59 23:59 23:59 Intake Total 2210 1830 1150 Output Total 900 425 412 Balance 1310 1405 738 Lab Results 03/19/21 03/18/21 03/17/21 06:06 04:24 04:33 BUN 30 H 30 H 36 H Creatinine 0.7 0.7 0.9 Estimated GFR (MDRD) 81 L 81 L 60 L 03/16/21 03/15/21 03/14/21 06:11 04:14 12:03 BUN 38 H 26 H 17 Creatinine 1.0 1.0 0.9 Estimated GFR (MDRD) 53 L 53 L 60 L Monitoring plan: Daily serum creatinine Next trough due prior to maintenance dose #: 4 Next trough due (date/time): 03/21 @ 1030 Areas for additional monitoring: IV to PO when appropriate, Therapy de- escalation based on culture results Pharmacy recommendation: Continue current regime
[2021-03-19] MEDS: TEMAZEPAM 15 MG CAPSULE PO PRN (21:19)
[2021-03-19] MEDS: ATORVASTATIN 10 MG TABLET PO SCH (21:19)
[2021-03-19] MEDS: VANCOMYCIN INJ 1 GM in SODIUM CHLORIDE 0.9% 250 ML IV SCH (23:41)
[2021-03-20 05:15] LABS: BASOPHILS % (AUTO) 0.2 %; CALCIUM, IONIZED 1.18 mmol/L (1.15-1.33); LYMPHOCYTES # (AUTO) 0.6 10^3/uL (1.5-3.5); LYMPHOCYTES % (AUTO) 3.7 %; MEAN CORPUSCULAR HEMOGLOBIN 26.8 pg (27.0-31.0); MEAN CORPUSCULAR HGB CONC 32.4 g/dL (32.0-36.0); MEAN CORPUSCULAR VOLUME 82.9 fL (81.0-99.0); MEAN PLATELET VOLUME 9.9 fL (7.9-10.8); MONOCYTES # (AUTO) 0.6 10^3/uL (0.0-1.0); MONOCYTES % (AUTO) 3.7 %; NEUTROPHILS # (AUTO) 14.8 10^3/uL (1.5-6.6); NEUTROPHILS % (AUTO) 91.3 %; PLT - PLATELET COUNT 282 10^3/uL (130-450); RED CELL DISTRIBUTION WIDTH 16.1 % (12.0-15.0); VBG PH 7.525 (7.31-7.41); WHITE BLOOD COUNT 16.2 x10^3/uL (4.8-10.8)
[2021-03-20 05:27] LABS: CALCIUM 8.9 mg/dL (8.5-10.3); CREATININE 0.6 mg/dL (0.4-1.0); MAGNESIUM 2.1 mg/dL (1.7-2.8); PHOSPHORUS 2.6 mg/dL (2.5-4.6)
[2021-03-20] MEDS: LIOTHYRONINE 25 MCG TABLET PO SCH (06:05)
[2021-03-20] MEDS: PANTOPRAZOLE 40 MG TABLET PO SCH (06:05)
[2021-03-20] MEDS ORDERED: POTASSIUM PHOSPHATE 21 MMOL in SODIUM CHLORIDE 0.9% 250 ML IV ONE (08:00)
--- NOTE | 2021-03-20 09:19 | PROVIDER PROGRESS NOTE ---
Subjective - Prog Note Date Prog Note Date: 03/20/21 - Subjective Subjective: She feels a little better today compared to yesterday. Still feels quite short of breath with any activity. She has been on BiPAP since yesterday morning. She has had intermittent breaks for food. She was very happy to see her family yesterday. Current Medications - Current Medications Current Medications: Active Medications Acetaminophen (Acetaminophen 325 Mg Tablet) 650 mg PO Q4HR PRN PRN Reason: Pain 1 to 4 Last Admin: 03/19/21 08:55 Dose: 650 mg Documented by: Amlodipine Besylate (Amlodipine 5 Mg Tablet) 5 mg PO DAILY [facility] Last Admin: 03/20/21 10:12 Dose: Not Given Documented by: Ascorbic Acid (Ascorbic Acid 500 Mg Tablet) 500 mg PO DAILY [facility] Last Admin: 03/20/21 10:12 Dose: Not Given Documented by: Aspirin (Aspirin Ec 81 Mg Tablet) 81 mg PO DAILY [facility] Last Admin: 03/20/21 10:13 Dose: Not Given Documented by: Atorvastatin Calcium (Atorvastatin 10 Mg Tablet) 20 mg PO QPM [facility] Last Admin: 03/19/21 21:19 Dose: 20 mg Documented by: Calcium Carbonate/Glycine (Calcium Carbonate Chew 500 Mg Tablet) 500 mg PO BID PRN PRN Reason: Heartburn Last Admin: 03/17/21 16:28 Dose: 500 mg Documented by: Cholecalciferol (Cholecalciferol 25 Mcg Tablet) 50 mcg PO DAILY [facility] Last Admin: 03/20/21 10:13 Dose: Not Given Documented by: Dexamethasone (Dexamethasone 4 Mg/Ml Vial) 6 mg IVP DAILY [facility] Stop: 03/23/21 09:01 Last Admin: 03/20/21 09:31 Dose: 6 mg Documented by: Diphenhydramine HCl (Diphenhydramine 25 Mg Capsule) 25 mg PO QPM PRN PRN Reason: Insomnia Enoxaparin Sodium (Enoxaparin 40 Mg/0.4 Ml Syringe) 40 mg SUBQ DAILY [facility] Last Admin: 03/20/21 09:31 Dose: 40 mg Documented by: Guaifenesin (Guaifenesin 600 Mg Tablet) 600 mg PO BID [facility] Last Admin: 03/20/21 10:14 Dose: Not Given Documented by: Hydralazine HCl (Hydralazine Inj 20 Mg/Ml Vial) 10 mg IVP Q4H PRN PRN Reason: PER PHYSICIAN ORDER Last Admin: 03/20/21 09:30 Dose: 10 mg Documented by: Cefepime HCl 2 gm/ Sodium (Chloride) 100 mls @ 200 mls/hr IV BID [facility] Last Admin: 03/20/21 09:26 Dose: 200 mls/hr Documented by: Vancomycin HCl 1 gm/ Sodium (Chloride) 250 mls @ 167 mls/hr IV Q12H [facility] Last Infusion: 03/20/21 01:19 Dose: Infused Documented by: Ibuprofen (Ibuprofen 400 Mg Tablet) 400 mg PO Q6HR PRN PRN Reason: PAIN Labetalol HCl (Labetalol 20 Mg/4 Ml Syringe) 10 mg IVP Q4H PRN PRN Reason: PER PHYSICIAN ORDER Liothyronine Sodium (Liothyronine 25 Mcg Tablet) 25 mcg PO QDAC [facility] Last Admin: 03/20/21 06:05 Dose: 25 mcg Documented by: Morphine Sulfate (Morphine 2 Mg/Ml Carpuject) 2 mg IVP Q2HR PRN PRN Reason: PAIN Last Admin: 03/20/21 09:37 Dose: 2 mg Documented by: Ondansetron HCl (Ondansetron 4 Mg/2 Ml Vial) 4 mg IVP Q6HR PRN PRN Reason: Nausea / Vomiting Last Admin: 03/16/21 08:18 Dose: 4 mg Documented by: Pantoprazole Sodium (Pantoprazole 40 Mg Tablet) 40 mg PO QDAC [facility] Last Admin: 03/20/21 06:05 Dose: 40 mg Documented by: Polyethylene Glycol (Polyethylene Glycol 3350 17 Gm Packet) 17 gm PO DAILY [facility] Last Admin: 03/20/21 10:14 Dose: Not Given Documented by: Sodium Chloride (Sodium Chloride Flush 0.9% 10 Ml Syringe) 10 ml IVP PRN PRN PRN Reason: NEEDED PER PROVIDER ORDERS Last Admin: 03/19/21 14:03 Dose: 10 ml Documented by: Sodium Chloride (Sodium Chloride Flush 0.9% 10 Ml Syringe) 10 ml IVP 0100,0900,1700 [facility] Last Admin: 03/20/21 10:14 Dose: 10 ml Documented by: Temazepam (Temazepam 15 Mg Capsule) 15 mg PO QPM PRN PRN Reason: Insomnia Last Admin: 03/19/21 21:19 Dose: 15 mg Documented by: Throat Lozenges (Benzocaine/Menthol Lozenge) 1 lozenge MM Q2HR PRN PRN Reason: Throat pain Last Admin: 03/17/21 16:28 Dose: 1 lozenge Documented by: Zinc Sulfate (Zinc Sulfate 220 Mg Capsule) 220 mg PO DAILY [facility] Last Admin: 03/20/21 10:14 Dose: Not Given Documented by: Aspirin [Aspirin EC] 81 mg PO DAILY 03/15/21 Liothyronine [Cytomel] 25 mcg PO QDAC 03/15/21 Meloxicam [Mobic] 1 tablet PO DAILY 03/15/21 Potassium Chloride [Klor-Con 10] 10 meq PO BIDWM 03/15/21 Rosuvastatin Calcium [Crestor] 10 mg PO DAILY 03/15/21 Objective - Vital Signs/Intake & Output Reviewed Vital Signs: Yes Vital Signs: Vital Signs Pulse Resp BP Pulse Ox 03/20/21 07:00 86 28 H 165/65 H 96 03/20/21 06:00 90 29 H 154/59 H 96 Intake & Output: Intake & Output 03/17/21 03/18/21 03/19/21 03/20/21 23:59 23:59 23:59 23:59 Intake Total 2210 1830 1450 587 Output Total 900 425 897 350 Balance 1310 1405 553 237 - Objective General Appearance: positive: Alert, Mild distress Eyes Bilateral: positive: Normal inspection, Conjunctivae nml ENT: positive: Other (BiPAP mask in place.) Respiratory: positive: Other (She is not in distress but she is tachypneic. Breath sounds diminished.) Cardiovascular: positive: Tachycardia. negative: Irregularly irregular, Systo lic murmur Abdomen: positive: Non-tender, No distention. negative: Tenderness Skin: positive: Warm, Dry Extremities: positive: No pedal edema - Lab Results Fish Bones: 03/20/21 05:02 03/20/21 05:02 Other Labs: Lab Results x24hrs 03/20/21 03/20/21 03/20/21 Range/Units 05:02 05:02 05:02 WBC 16.2 H (4.8-10.8) x10^3/uL RBC 4.10 L (4.20-5.40) 10^6/uL Hgb 11.0 L (12.0-16.0) g/dL Hct 34.0 L (37.0-47.0) % MCV 82.9 (81.0-99.0) fL MCH 26.8 L (27.0-31.0) pg MCHC 32.4 (32.0-36.0) g/dL RDW 16.1 H (12.0-15.0) % Plt Count 282 (130-450) 10^3/uL MPV 9.9 (7.9-10.8) fL Neut # (Auto) 14.8 H (1.5-6.6) 10^3/uL Lymph # (Auto) 0.6 L (1.5-3.5) 10^3/uL [place] # (Auto) 0.6 (0.0-1.0) 10^3/uL Eos # (Auto) 0.0 (0.0-0.7) 10^3/uL Baso # (Auto) 0.0 (0.0-0.1) 10^3/uL Absolute Nucleated RBC 0.00 x10^3/uL Nucleated RBC % 0.0 /100WBC Bld Gas Analysis Time Sample Site ABG pH (7.35-7.45) ABG pCO2 (34-45) mmHg ABG pO2 (80-100) mmHg ABG HCO3 (22.0-26.0) mmol/L ABG Total CO2 (21.0-29.0) MMOL/L ABG O2 Saturation (94-98) % ABG Base Excess (-2.0-3.0) mmol/L Shalom Test VBG pH 7.525 H (7.31-7.41) Ionized Calcium 1.18 (1.15-1.33) mmol/L O2 Delivery Device O2 Liters/Min LPM FiO2 EPAP cmH2O IPAP cmH2O Sodium 137 (135-145) mmol/L Potassium 4.0 (3.5-5.0) mmol/L Chloride 103 (101-111) mmol/L Carbon Dioxide 26 (21-32) mmol/L Anion Gap 8.0 (6-13) BUN 32 H (6-20) mg/dL Creatinine 0.6 (0.4-1.0) mg/dL Estimated GFR (MDRD) 96 (>89) Glucose 185 H (70-100) mg/dL Calcium 8.9 (8.5-10.3) mg/dL Phosphorus 2.6 (2.5-4.6) mg/dL Magnesium 2.1 (1.7-2.8) mg/dL 03/19/21 03/19/21 Range/Units 11:29 09:28 WBC (4.8-10.8) x10^3/uL RBC (4.20-5.40) 10^6/uL Hgb (12.0-16.0) g/dL Hct (37.0-47.0) % MCV (81.0-99.0) fL MCH (27.0-31.0) pg MCHC (32.0-36.0) g/dL RDW (12.0-15.0) % Plt Count (130-450) 10^3/uL MPV (7.9-10.8) fL Neut # (Auto) (1.5-6.6) 10^3/uL Lymph # (Auto) (1.5-3.5) 10^3/uL [place] # (Auto) (0.0-1.0) 10^3/uL Eos # (Auto) (0.0-0.7) 10^3/uL Baso # (Auto) (0.0-0.1) 10^3/uL Absolute Nucleated RBC x10^3/uL Nucleated RBC % /100WBC Bld Gas Analysis Time 1126 0965 Sample Site RIGHT RADIAL RIGHT RADIAL ABG pH 7.53 H 7.54 H (7.35-7.45) ABG pCO2 31 L 28 L (34-45) mmHg ABG pO2 63 L 51 L* (80-100) mmHg ABG HCO3 25.3 23.5 (22.0-26.0) mmol/L ABG Total CO2 26.3 24.3 (21.0-29.0) MMOL/L ABG O2 Saturation 93 L 89 L (94-98) % ABG Base Excess 3.3 H 1.9 (-2.0-3.0) mmol/L Shalom Test POSITIVE POSITIVE VBG pH (7.31-7.41) Ionized Calcium (1.15-1.33) mmol/L O2 Delivery Device BiPAP NASAL CANNULA O2 Liters/Min 55.00 LPM FiO2 70.00 100.00 EPAP 8 cmH2O IPAP 12 cmH2O Sodium (135-145) mmol/L Potassium (3.5-5.0) mmol/L Chloride (101-111) mmol/L Carbon Dioxide (21-32) mmol/L Anion Gap (6-13) BUN (6-20) mg/dL Creatinine (0.4-1.0) mg/dL Estimated GFR (MDRD) (>89) Glucose (70-100) mg/dL Calcium (8.5-10.3) mg/dL Phosphorus (2.5-4.6) mg/dL Magnesium (1.7-2.8) mg/dL Assessment/Plan - Problem List (1) Acute respiratory failure with hypoxia Impression: She appears slightly improved today compared to yesterday but she is still quite dyspneic and requiring BiPAP. She can no longer tolerate high flow nasal cannula she desaturates with this. She is now on 15/10 with an FiO2 of 80%. Her saturations are maintaining around 92 to 93%. ABG yesterday showed no evidence of hypercapnia. We will continue her on IV antibiotics with vancomycin and cefepime which were started yesterday. We will continue her on Decadron and remdesivir. Continue supportive measures. Her overall prognosis remains quite guarded. We once again discussed the potential need for intubation but she insists that she prefers to hold off on this unless absolutely necessary. She would prefer to stay on BiPAP for as long as possible. (2) Pneumonia due to 2019 novel coronavirus Impression: This is the cause of her respiratory failure with hypoxia. We are continuing to support her with BiPAP as mentioned above. She remains on vancomycin and cefepime giving the rising white count. She remains on Decadron and remdesivir. Plan as mentioned above. (3) History of aortic valve replacement Impression: She has a history of aortic valve replacement within the past 2 years. We will obtain an echocardiogram tomorrow. (4) Hypertension Impression: She is more hypertensive today with systolics in the 160s. We will increase her amlodipine and use labetalol as needed. (5) Hypothyroidism Impression: Continue cytomel.
[2021-03-20] MEDS: CEFEPIME 2 GM in SODIUM CHLORIDE 0.9% MINIBAG 100 ML IV SCH ×2 (09:26→21:07)
[2021-03-20] MEDS: hydrALAZINE INJ 20 MG/ML VIAL IVP PRN (09:30)
[2021-03-20] MEDS: ENOXAPARIN 40 MG/0.4 ML SYRINGE SUBQ SCH (09:31)
[2021-03-20] MEDS: DEXAMETHASONE 4 MG/ML VIAL IVP SCH (09:31)
[2021-03-20] MEDS: MORPHINE 2 MG/ML CARPUJECT IVP PRN ×3 (09:37→21:07)
[2021-03-20] MEDS: ASCORBIC ACID 500 MG TABLET PO SCH (10:12)
[2021-03-20] MEDS: amLODIPine 5 MG TABLET PO SCH (10:12)
[2021-03-20] MEDS: CHOLECALCIFEROL 25 MCG TABLET PO SCH (10:13)
[2021-03-20] MEDS: ASPIRIN EC 81 MG TABLET PO SCH (10:13)
[2021-03-20] MEDS: ZINC SULFATE 220 MG CAPSULE PO SCH (10:14)
[2021-03-20] MEDS: SODIUM CHLORIDE FLUSH 0.9% 10 ML SYRINGE IVP SCH ×3 (10:14→21:06)
[2021-03-20] MEDS: guaiFENesin 600 MG TABLET PO SCH ×2 (10:14→21:06)
[2021-03-20] MEDS: polyethylene glycoL 3350 17 GM PACKET PO SCH (10:14)
[2021-03-20] MEDS ORDERED: VANCOMYCIN 1 GM VIAL ONE (12:04)
[2021-03-20] MEDS: VANCOMYCIN INJ 1 GM in SODIUM CHLORIDE 0.9% 250 ML IV SCH ×2 (12:16→22:14)
[2021-03-20] MEDS: REMDESIVIR 100MG VIAL 100 MG in SODIUM CHLORIDE 0.9% 100ML 100 ML IV SCH (12:30)
[2021-03-20] MEDS: TEMAZEPAM 15 MG CAPSULE PO PRN (21:06)
[2021-03-20] MEDS: ATORVASTATIN 10 MG TABLET PO SCH (21:06)
[2021-03-21] MEDS: MORPHINE 2 MG/ML CARPUJECT IVP PRN ×10 (00:21→23:49)
[2021-03-21] MEDS: SODIUM CHLORIDE FLUSH 0.9% 10 ML SYRINGE IVP PRN ×2 (00:21→06:03)
[2021-03-21 05:56] LABS: BASOPHILS # (AUTO) 0.1 10^3/uL (0.0-0.1); BASOPHILS % (AUTO) 0.3 %; CALCIUM, IONIZED 1.19 mmol/L (1.15-1.33); HCT - HEMATOCRIT 35.8 % (37.0-47.0); HGB - HEMOGLOBIN 11.6 g/dL (12.0-16.0); LYMPHOCYTES # (AUTO) 0.7 10^3/uL (1.5-3.5); LYMPHOCYTES % (AUTO) 3.7 %; MEAN CORPUSCULAR HEMOGLOBIN 26.7 pg (27.0-31.0); MEAN CORPUSCULAR HGB CONC 32.4 g/dL (32.0-36.0); MEAN CORPUSCULAR VOLUME 82.3 fL (81.0-99.0); MEAN PLATELET VOLUME 10.6 fL (7.9-10.8); MONOCYTES # (AUTO) 0.6 10^3/uL (0.0-1.0); NEUTROPHILS # (AUTO) 17.7 10^3/uL (1.5-6.6); NEUTROPHILS % (AUTO) 90.9 %; PLT - PLATELET COUNT 296 10^3/uL (130-450); RED BLOOD COUNT 4.35 10^6/uL (4.20-5.40); RED CELL DISTRIBUTION WIDTH 16.2 % (12.0-15.0); VBG PH 7.509 (7.31-7.41); WHITE BLOOD COUNT 19.5 x10^3/uL (4.8-10.8)
[2021-03-21] MEDS: LIOTHYRONINE 25 MCG TABLET PO SCH (06:03)
[2021-03-21] MEDS: PANTOPRAZOLE 40 MG TABLET PO SCH (06:03)
[2021-03-21 06:10] LABS: CALCIUM 8.9 mg/dL (8.5-10.3); CREATININE 0.6 mg/dL (0.4-1.0); POTASSIUM 4.2 mmol/L (3.5-5.0)
[2021-03-21 06:13] LABS: MAGNESIUM 2.2 mg/dL (1.7-2.8); PHOSPHORUS 3.7 mg/dL (2.5-4.6)
--- NOTE | 2021-03-21 08:07 | PROVIDER PROGRESS NOTE ---
Subjective - Prog Note Date Prog Note Date: 03/21/21 - Subjective Subjective: She feels improved. Still short of breath with minimal activity but she feels more comfortable on the BiPAP and that she is making a little progress. Current Medications - Current Medications Current Medications: Active Medications Acetaminophen (Acetaminophen 325 Mg Tablet) 650 mg PO Q4HR PRN PRN Reason: Pain 1 to 4 Last Admin: 03/19/21 08:55 Dose: 650 mg Documented by: Amlodipine Besylate (Amlodipine 5 Mg Tablet) 10 mg PO DAILY [facility] Last Admin: 03/21/21 08:17 Dose: 10 mg Documented by: Ascorbic Acid (Ascorbic Acid 500 Mg Tablet) 500 mg PO DAILY [facility] Last Admin: 03/21/21 11:34 Dose: Not Given Documented by: Aspirin (Aspirin Ec 81 Mg Tablet) 81 mg PO DAILY [facility] Last Admin: 03/21/21 08:17 Dose: 81 mg Documented by: Atorvastatin Calcium (Atorvastatin 10 Mg Tablet) 20 mg PO QPM [facility] Last Admin: 03/20/21 21:06 Dose: 20 mg Documented by: Calcium Carbonate/Glycine (Calcium Carbonate Chew 500 Mg Tablet) 500 mg PO BID PRN PRN Reason: Heartburn Last Admin: 03/17/21 16:28 Dose: 500 mg Documented by: Cholecalciferol (Cholecalciferol 25 Mcg Tablet) 50 mcg PO DAILY [facility] Last Admin: 03/21/21 11:34 Dose: Not Given Documented by: Dexamethasone (Dexamethasone 4 Mg/Ml Vial) 6 mg IVP DAILY [facility] Stop: 03/23/21 09:01 Last Admin: 03/21/21 08:25 Dose: 6 mg Documented by: Diphenhydramine HCl (Diphenhydramine 25 Mg Capsule) 25 mg PO QPM PRN PRN Reason: Insomnia Enoxaparin Sodium (Enoxaparin 40 Mg/0.4 Ml Syringe) 40 mg SUBQ DAILY [facility] Last Admin: 03/21/21 08:31 Dose: 40 mg Documented by: Guaifenesin (Guaifenesin 600 Mg Tablet) 600 mg PO BID [facility] Last Admin: 03/21/21 11:34 Dose: Not Given Documented by: Hydralazine HCl (Hydralazine Inj 20 Mg/Ml Vial) 10 mg IVP Q4H PRN PRN Reason: PER PHYSICIAN ORDER Last Admin: 03/20/21 09:30 Dose: 10 mg Documented by: Cefepime HCl 2 gm/ Sodium (Chloride) 100 mls @ 200 mls/hr IV BID [facility] Last Infusion: 03/21/21 08:55 Dose: Infused Documented by: Vancomycin HCl 1 gm/ Sodium (Chloride) 250 mls @ 167 mls/hr IV Q12H [facility] Last Infusion: 03/21/21 12:54 Dose: 0 mls/hr Documented by: Ibuprofen (Ibuprofen 400 Mg Tablet) 400 mg PO Q6HR PRN PRN Reason: PAIN Labetalol HCl (Labetalol 20 Mg/4 Ml Syringe) 10 mg IVP Q4H PRN PRN Reason: PER PHYSICIAN ORDER Liothyronine Sodium (Liothyronine 25 Mcg Tablet) 25 mcg PO QDAC [facility] Last Admin: 03/21/21 06:03 Dose: 25 mcg Documented by: Morphine Sulfate (Morphine 2 Mg/Ml Carpuject) 2 mg IVP Q2HR PRN PRN Reason: PAIN Last Admin: 03/21/21 16:50 Dose: 2 mg Documented by: Ondansetron HCl (Ondansetron 4 Mg/2 Ml Vial) 4 mg IVP Q6HR PRN PRN Reason: Nausea / Vomiting Last Admin: 03/16/21 08:18 Dose: 4 mg Documented by: Pantoprazole Sodium (Pantoprazole 40 Mg Tablet) 40 mg PO QDAC [facility] Last Admin: 03/21/21 06:03 Dose: 40 mg Documented by: Polyethylene Glycol (Polyethylene Glycol 3350 17 Gm Packet) 17 gm PO DAILY [facility] Last Admin: 03/21/21 08:32 Dose: Not Given Documented by: Sodium Chloride (Sodium Chloride Flush 0.9% 10 Ml Syringe) 10 ml IVP PRN PRN PRN Reason: NEEDED PER PROVIDER ORDERS Last Admin: 03/21/21 06:03 Dose: 10 ml Documented by: Sodium Chloride (Sodium Chloride Flush 0.9% 10 Ml Syringe) 10 ml IVP 0100,0900,1700 [facility] Last Admin: 03/21/21 18:11 Dose: 10 ml Documented by: Temazepam (Temazepam 15 Mg Capsule) 15 mg PO QPM PRN PRN Reason: Insomnia Last Admin: 03/20/21 21:06 Dose: 15 mg Documented by: Throat Lozenges (Benzocaine/Menthol Lozenge) 1 lozenge MM Q2HR PRN PRN Reason: Throat pain Last Admin: 03/17/21 16:28 Dose: 1 lozenge Documented by: Zinc Sulfate (Zinc Sulfate 220 Mg Capsule) 220 mg PO DAILY [facility] Last Admin: 03/21/21 11:34 Dose: Not Given Documented by: Aspirin [Aspirin EC] 81 mg PO DAILY 03/15/21 Liothyronine [Cytomel] 25 mcg PO QDAC 03/15/21 Meloxicam [Mobic] 1 tablet PO DAILY 03/15/21 Potassium Chloride [Klor-Con 10] 10 meq PO BIDWM 03/15/21 Rosuvastatin Calcium [Crestor] 10 mg PO DAILY 03/15/21 Objective - Vital Signs/Intake & Output Reviewed Vital Signs: Yes Vital Signs: Vital Signs Temp Pulse Pulse Resp BP Pulse Ox 03/21/21 07:21 88 03/21/21 07:00 93 29 H 155/70 H 92 03/21/21 06:00 36.5 C 86 34 H 149/59 H 90 L 03/21/21 05:00 95 85 22 153/64 H 94 Intake & Output: Intake & Output 03/18/21 03/19/21 03/20/21 03/21/21 23:59 23:59 23:59 23:59 Intake Total 1830 1450 1707 100 Output Total 029 880 2887 210 Balance 1405 553 557 -110 - Objective General Appearance: positive: No acute distress, Alert Eyes Bilateral: positive: Normal inspection, Conjunctivae nml ENT: positive: ENT inspection nml, Other (BiPAP mask in place.) Respiratory: positive: No respiratory distress, Rhonchi (Faint rhonchi bilaterally), Other (She is tachypneic but is not in distress. Breath sounds diminished.) Cardiovascular: positive: Tachycardia. negative: Irregularly irregular, Bradycardia, Systolic murmur Abdomen: positive: Non-tender, No distention. negative: Tenderness Skin: positive: Warm, Dry Extremities: positive: No pedal edema Neurologic/Psychiatric: negative: Disoriented to person, Disoriented to place - Lab Results Fish Bones: 03/21/21 05:38 03/21/21 05:38 Other Labs: Lab Results x24hrs 03/21/21 03/21/21 03/21/21 Range/Units 05:38 05:38 05:38 WBC (4.8-10.8) x10^3/uL RBC (4.20-5.40) 10^6/uL Hgb (12.0-16.0) g/dL Hct (37.0-47.0) % MCV (81.0-99.0) fL MCH (27.0-31.0) pg MCHC (32.0-36.0) g/dL RDW (12.0-15.0) % Plt Count (130-450) 10^3/uL MPV (7.9-10.8) fL Neut # (Auto) (1.5-6.6) 10^3/uL Lymph # (Auto) (1.5-3.5) 10^3/uL [place] # (Auto) (0.0-1.0) 10^3/uL Eos # (Auto) (0.0-0.7) 10^3/uL Baso # (Auto) (0.0-0.1) 10^3/uL Absolute Nucleated RBC x10^3/uL Nucleated RBC % /100WBC VBG pH 7.509 H (7.31-7.41) Ionized Calcium 1.19 (1.15-1.33) mmol/L Sodium 137 (135-145) mmol/L Potassium 4.2 (3.5-5.0) mmol/L Chloride 102 (101-111) mmol/L Carbon Dioxide 24 (21-32) mmol/L Anion Gap 11.0 (6-13) BUN 32 H (6-20) mg/dL Creatinine 0.6 (0.4-1.0) mg/dL Estimated GFR (MDRD) 96 (>89) Glucose 112 H (70-100) mg/dL Calcium 8.9 (8.5-10.3) mg/dL Phosphorus 3.7 (2.5-4.6) mg/dL Magnesium 2.2 (1.7-2.8) mg/dL 03/21/21 Range/Units 05:38 WBC 19.5 H (4.8-10.8) x10^3/uL RBC 4.35 (4.20-5.40) 10^6/uL Hgb 11.6 L (12.0-16.0) g/dL Hct 35.8 L (37.0-47.0) % MCV 82.3 (81.0-99.0) fL MCH 26.7 L (27.0-31.0) pg MCHC 32.4 (32.0-36.0) g/dL RDW 16.2 H (12.0-15.0) % Plt Count 296 (130-450) 10^3/uL MPV 10.6 (7.9-10.8) fL Neut # (Auto) 17.7 H (1.5-6.6) 10^3/uL Lymph # (Auto) 0.7 L (1.5-3.5) 10^3/uL [place] # (Auto) 0.6 (0.0-1.0) 10^3/uL Eos # (Auto) 0.0 (0.0-0.7) 10^3/uL Baso # (Auto) 0.1 (0.0-0.1) 10^3/uL Absolute Nucleated RBC 0.00 x10^3/uL Nucleated RBC % 0.0 /100WBC VBG pH (7.31-7.41) Ionized Calcium (1.15-1.33) mmol/L Sodium (135-145) mmol/L Potassium (3.5-5.0) mmol/L Chloride (101-111) mmol/L Carbon Dioxide (21-32) mmol/L Anion Gap (6-13) BUN (6-20) mg/dL Creatinine (0.4-1.0) mg/dL Estimated GFR (MDRD) (>89) Glucose (70-100) mg/dL Calcium (8.5-10.3) mg/dL Phosphorus (2.5-4.6) mg/dL Magnesium (1.7-2.8) mg/dL Assessment/Plan - Problem List (1) Acute respiratory failure with hypoxia Impression: She remains on BiPAP with an FiO2 100%. Her oxygen saturations are anywhere from 90 to 93% on this. Although her oxygen requirements are slightly increased compared to yesterday, she appears much more comfortable on BiPAP and is able to speak in full sentences. She looks improved and has much more energy today. She once again iterated that she would prefer to stay on BiPAP for a few days at this area rather than to be intubated. We discussed that intubation would be necessary if her oxygen saturation's were to drop below 88% persistently I do not have any room to work with on the BiPAP. She expresses understanding of this. She has now finished 5 days of remdesivir. She remains on Decadron and also on vancomycin and cefepime IV given her white count was rising which continues to do so. We will continue with BiPAP. Continue supportive measures. Overall prognosis remains guarded this was discussed with her and her today. (2) Pneumonia due to 2019 novel coronavirus Impression: This is a cause of respiratory failure as mentioned above. She has completed remdesivir. She remains on Decadron. Her white count continues to rise despite being on vancomycin and cefepime. We will continue with the plan as mentioned above. (3) History of aortic valve replacement Impression: We will be obtaining an echocardiogram tomorrow to assess her LV function and evaluate for any valvular disease. (4) Hypertension Impression: We will continue her current antihypertensives. (5) Hypothyroidism Impression: Continue Cytomel.
[2021-03-21] MEDS: amLODIPine 5 MG TABLET PO SCH (08:17)
[2021-03-21] MEDS: ASPIRIN EC 81 MG TABLET PO SCH (08:17)
[2021-03-21] MEDS: CEFEPIME 2 GM in SODIUM CHLORIDE 0.9% MINIBAG 100 ML IV SCH ×2 (08:20→21:21)
[2021-03-21] MEDS: DEXAMETHASONE 4 MG/ML VIAL IVP SCH (08:25)
[2021-03-21] MEDS: ENOXAPARIN 40 MG/0.4 ML SYRINGE SUBQ SCH (08:31)
[2021-03-21] MEDS: polyethylene glycoL 3350 17 GM PACKET PO SCH (08:32)
[2021-03-21 11:05] LABS: VANCOMYCIN,TROUGH 14.8 ug/mL (10.0-20.0)
[2021-03-21] MEDS: VANCOMYCIN INJ 1 GM in SODIUM CHLORIDE 0.9% 250 ML IV SCH ×2 (11:27→23:44)
[2021-03-21] MEDS: SODIUM CHLORIDE FLUSH 0.9% 10 ML SYRINGE IVP SCH ×3 (11:34→23:49)
[2021-03-21] MEDS: CHOLECALCIFEROL 25 MCG TABLET PO SCH (11:34)
[2021-03-21] MEDS: ASCORBIC ACID 500 MG TABLET PO SCH (11:34)
[2021-03-21] MEDS: ZINC SULFATE 220 MG CAPSULE PO SCH (11:34)
[2021-03-21] MEDS: guaiFENesin 600 MG TABLET PO SCH ×2 (11:34→21:20)
[2021-03-21] MEDS: ATORVASTATIN 10 MG TABLET PO SCH (21:20)
[2021-03-22 05:34] LABS: BASOPHILS % (AUTO) 0.2 %; HCT - HEMATOCRIT 37.3 % (37.0-47.0); HGB - HEMOGLOBIN 12.2 g/dL (12.0-16.0); LYMPHOCYTES % (AUTO) 2.1 %; MEAN CORPUSCULAR HEMOGLOBIN 26.8 pg (27.0-31.0); MEAN CORPUSCULAR HGB CONC 32.7 g/dL (32.0-36.0); MEAN CORPUSCULAR VOLUME 81.8 fL (81.0-99.0); MEAN PLATELET VOLUME 10.4 fL (7.9-10.8); MONOCYTES % (AUTO) 3.6 %; NEUTROPHILS % (AUTO) 91.8 %; PLT - PLATELET COUNT 357 10^3/uL (130-450); RED BLOOD COUNT 4.56 10^6/uL (4.20-5.40); RED CELL DISTRIBUTION WIDTH 15.9 % (12.0-15.0); WHITE BLOOD COUNT 24.8 x10^3/uL (4.8-10.8)
[2021-03-22 05:44] LABS: CREATININE 0.7 mg/dL (0.4-1.0); MAGNESIUM 2.2 mg/dL (1.7-2.8)
[2021-03-22 05:58] LABS: PLATELET MORPHOLOGY NORMAL APPEARANCE (NORMAL); RBC MORPHOLOGY (MULTIPLE) NORMAL APPEARANCE (NORMAL)
[2021-03-22 05:59] LABS: DIFFERENTIAL COMMENT MANUAL DIFFERENTIAL; PLATELET ESTIMATE, MANUAL NORMAL (130-450,000) (NORMAL); WBC MORPHOLOGY (MULTIPLE) NORMAL APPEARANCE (NORMAL)
[2021-03-22] MEDS: LIOTHYRONINE 25 MCG TABLET PO SCH (06:51)
[2021-03-22] MEDS: PANTOPRAZOLE 40 MG TABLET PO SCH (06:51)
[2021-03-22] MEDS: MORPHINE 2 MG/ML CARPUJECT IVP PRN ×3 (08:47→17:24)
[2021-03-22] MEDS: ASPIRIN EC 81 MG TABLET PO SCH (08:57)
[2021-03-22] MEDS: amLODIPine 5 MG TABLET PO SCH (08:57)
[2021-03-22] MEDS: polyethylene glycoL 3350 17 GM PACKET PO SCH (10:50)
[2021-03-22] MEDS: CHOLECALCIFEROL 25 MCG TABLET PO SCH (10:50)
[2021-03-22] MEDS: guaiFENesin 600 MG TABLET PO SCH ×2 (10:50→21:34)
[2021-03-22] MEDS: ASCORBIC ACID 500 MG TABLET PO SCH (10:51)
[2021-03-22] MEDS: ZINC SULFATE 220 MG CAPSULE PO SCH (10:51)
[2021-03-22] MEDS: VANCOMYCIN INJ 1 GM in SODIUM CHLORIDE 0.9% 250 ML IV SCH ×2 (11:14→23:25)
[2021-03-22] MEDS: DEXAMETHASONE 4 MG/ML VIAL IVP SCH (11:20)
[2021-03-22] MEDS: ENOXAPARIN 40 MG/0.4 ML SYRINGE SUBQ SCH (11:20)
[2021-03-22 12:08] LABS: ABG HCO3 23.2 mmol/L (22.0-26.0); ABG PCO2 30 mmHg (34-45); ABG PH 7.51 (7.35-7.45)
[2021-03-22 12:09] LABS: ABG BASE EXCESS 1.2 mmol/L (-2.0-3.0); ABG MODE OF VENTILATION SYNCHRONOUS/TIMES; ABG RESPIRATORY RATE 8 b/min; ABG TCO2 24.1 MMOL/L (21.0-29.0); ALLEN TEST POSITIVE
[2021-03-22 12:11] LABS: ABG OXYGEN SATURATION 87 % (94-98); ABG PO2 48 mmHg (80-100)
[2021-03-22] MEDS: SODIUM CHLORIDE FLUSH 0.9% 10 ML SYRINGE IVP SCH ×2 (12:20→19:16)
[2021-03-22] MEDS: CEFEPIME 2 GM in SODIUM CHLORIDE 0.9% MINIBAG 100 ML IV SCH ×2 (14:27→21:35)
--- NOTE | 2021-03-22 14:36 | XRAY Report ---
PROCEDURE: Chest 1 View X-Ray INDICATIONS: Resp distress, COVID pneumonia TECHNIQUE: One view of the chest was acquired. COMPARISON: 03/16/2021 FINDINGS: Surgical changes and devices: None. Lungs and pleura: No pleural effusions or pneumothorax. Patchy bilateral groundglass and consolidati ve interstitial and airspace opacities, worsened when compared with 03/16/2021 exam. No pleural effus ion or pneumothorax. Mediastinum: Mediastinal contours appear normal. Heart size is normal. Bones and chest wall: No suspicious bony lesions. Overlying soft tissues appear unremarkable. IMPRESSION: Worsened bilateral interstitial and airspace opacities when compared with 03/16/2021 examination. Reviewed by: Ikre Pastor MD on 03/22/2021 1:35 PM [facility] Approved by: Iker Pastor MD on 03/22/2021 1:35 PM [facility] Station ID: [id number]
[2021-03-22] MEDS ORDERED: fentaNYL 100 MCG/2 ML VIAL ONE (16:31)
[2021-03-22] MEDS ORDERED: PROPOFOL 200 MG/20 ML VIAL IVP ONE (16:31)
[2021-03-22] MEDS ORDERED: PROPOFOL 1000 MG/100 ML 1,000 MG/100 ML BOTTLE IV ONE (16:32)
[2021-03-22] MEDS ORDERED: SUCCINYLCHOLINE 200 MG/10 ML VIAL ONE (16:32)
[2021-03-22] MEDS ORDERED: PHENYLEPHRINE 10 MG/ML VIAL ONE (16:32)
[2021-03-22] MEDS ORDERED: ROCURONIUM 50 MG/5 ML VIAL ONE (16:32)
--- NOTE | 2021-03-22 17:02 | PROVIDER PROGRESS NOTE ---
Assessment/Plan - Problem List (1) Acute respiratory failure with hypoxia Assessment/Plan: She remains on BiPAP with an FiO2 of 100% at 15/10. Her oxygen saturations are 83-89% on this. Today she cannot speak in full sentences, only 1 word answers. When BIPAP is removed for 5 sec (to give ice chips or take meds orally), she desats to 73-80%. Her resp rate is 30-40 today. ABG today show resp alkalosis with pO2 48 and sat 87%. We discussed that intubation is necessary since her oxygen saturation's remain below 88%. She expressed understanding of this. Will order intubation by Anesthesia, central line placement, art line placement. She is now critical. She has finished 5 days of remdesivir. She remains on Decadron and is also on vancomycin and cefepime IV given her white count was rising Continue supportive measures, contact isolation. Overall prognosis remains guarded this was discussed with her and her today. (2) Pneumonia due to 2019 novel coronavirus Impression: This is a cause of respiratory failure as mentioned above. She has completed remdesivir. She remains on Decadron. Her CXR was repeated today and shows worsening infiltrates. We will continue in the ICU with the plan as mentioned above. (3) History of aortic valve replacement Impression: We will be obtaining an Echocardiogram to assess her LV function and evaluate for any valvular disease. (4) Hypertension Impression: We will continue her current antihypertensives, changing to per ng or iv forms when on vent. (5) Hypothyroidism Impression: Continue Cytomel, will change to iv q5d or per ng tube, if on vent. - Current Meds Current Meds: Current Medications Generic Name Dose Route Start Last Admin Trade Name Freq PRN Reason Stop Dose Admin Acetaminophen 650 mg 03/14/21 16:53 03/19/21 08:55 Acetaminophen 325 Mg Tablet PO 650 mg Q4HR PRN Administration Pain 1 to 4 Amlodipine Besylate 10 mg 03/21/21 09:00 03/22/21 08:57 Amlodipine 5 Mg Tablet PO 10 mg DAILY [facility] Administration Ascorbic Acid 500 mg 03/17/21 09:00 03/22/21 10:51 Ascorbic Acid 500 Mg Tablet PO Not Given DAILY [facility] Aspirin 81 mg 03/16/21 09:00 03/22/21 08:57 Aspirin Ec 81 Mg Tablet PO 81 mg DAILY [facility] Administration Atorvastatin Calcium 20 mg 03/16/21 21:00 03/21/21 21:20 Atorvastatin 10 Mg Tablet PO 20 mg QPM [facility] Administration Calcium Carbonate/Glycine 500 mg 03/17/21 15:11 03/17/21 16:28 Calcium Carbonate Chew 500 Mg Tablet PO 500 mg BID PRN Administration Heartburn Cholecalciferol 50 mcg 03/16/21 16:00 03/22/21 10:50 Cholecalciferol 25 Mcg Tablet PO Not Given DAILY [facility] Dexamethasone 6 mg 03/15/21 09:00 03/22/21 11:20 Dexamethasone 4 Mg/Ml Vial IVP 03/23/21 09:01 6 mg DAILY [facility] Administration Diphenhydramine HCl 25 mg 03/16/21 20:32 03/21/21 21:20 Diphenhydramine 25 Mg Capsule PO 25 mg QPM PRN Administration Insomnia Enoxaparin Sodium 40 mg 03/15/21 09:00 03/22/21 11:20 Enoxaparin 40 Mg/0.4 Ml Syringe SUBQ 40 mg DAILY [facility] Administration Guaifenesin 600 mg 03/15/21 12:00 03/22/21 10:50 Guaifenesin 600 Mg Tablet PO Not Given BID [facility] Hydralazine HCl 10 mg 03/14/21 17:23 03/20/21 09:30 Hydralazine Inj 20 Mg/Ml Vial IVP 10 mg Q4H PRN Administration PER PHYSICIAN ORDER Cefepime HCl 2 gm/ Sodium 100 mls @ 200 mls/hr 03/19/21 10:00 03/22/21 14:27 Chloride IV 200 mls/hr BID [facility] Administration Vancomycin HCl 1 gm/ Sodium 250 mls @ 167 mls/hr 03/19/21 23:00 03/22/21 12:40 Chloride IV 0 mls/hr Q12H [facility] Infusion Liothyronine Sodium 25 mcg 03/17/21 07:00 03/22/21 06:51 Liothyronine 25 Mcg Tablet PO 25 mcg QDAC [facility] Administration Morphine Sulfate 2 mg 03/17/21 01:03 03/22/21 11:34 Morphine 2 Mg/Ml Carpuject IVP 2 mg Q2HR PRN Administration PAIN Ondansetron HCl 4 mg 03/14/21 16:53 03/16/21 08:18 Ondansetron 4 Mg/2 Ml Vial IVP 4 mg Q6HR PRN Administration Nausea / Vomiting Pantoprazole Sodium 40 mg 03/17/21 16:00 03/22/21 06:51 Pantoprazole 40 Mg Tablet PO 40 mg QDAC [facility] Administration Polyethylene Glycol 17 gm 03/18/21 09:00 03/22/21 10:50 Polyethylene Glycol 3350 17 Gm Packet PO Not Given DAILY [facility] Sodium Chloride 10 ml 03/14/21 16:53 03/21/21 06:03 Sodium Chloride Flush 0.9% 10 Ml Syringe IVP 10 ml PRN PRN Administration NEEDED PER PROVIDER ORDERS Sodium Chloride 10 ml 03/14/21 17:00 03/22/21 12:20 Sodium Chloride Flush 0.9% 10 Ml Syringe IVP 10 ml 0100,0900,1700 [facility] Administration Temazepam 15 mg 03/16/21 20:32 03/20/21 21:06 Temazepam 15 Mg Capsule PO 15 mg QPM PRN Administration Insomnia Throat Lozenges 1 lozenge 03/15/21 03:57 03/17/21 16:28 Benzocaine/Menthol Lozenge MM 1 lozenge Q2HR PRN Administration Throat pain Zinc Sulfate 220 mg 03/17/21 09:00 03/22/21 10:51 Zinc Sulfate 220 Mg Capsule PO Not Given DAILY [facility] - Lab Result Fish Bone Diagrams: 03/22/21 05:01 03/22/21 05:01 - Additional Planning My Orders: My Active Orders 03/22/21 11:32 RT - Obtain Arterial Specimen [RC] .ONCE 03/22/21 15:56 Arterial Line Insertion - ICU [RC] .ONCE Central Line Insertion [RC] ONCE ED Intubation ONCE Subjective - Subjective Patient Reports: Shortness of Breath (resp rate is 30-40, she speaks in 1 word answers.) Objective Vital Signs: Vital Signs - 24 hr 03/21/21 03/21/21 03/21/21 17:00 18:00 19:00 Temperature 36.3 C L Heart Rate 108 H Heart Rate [ 100 101 H 100 Monitoring electrodes] Respiratory 25 H 28 H 30 H Rate Blood Pressure 130/90 H 150/70 H 153/73 H [Left Brachial artery] O2 Saturation 90 L 94 90 L 03/21/21 03/21/21 03/21/21 19:16 20:00 21:00 Temperature 36.6 C Heart Rate 110 H Heart Rate [ 104 H 103 H Monitoring electrodes] Respiratory 25 H 25 H Rate Blood Pressure 155/65 H 177/79 H [Left Brachial artery] O2 Saturation 94 92 03/21/21 03/21/21 03/21/21 21:48 22:00 23:00 Temperature 36.5 C 36.5 C Heart Rate 114 H Heart Rate [ 96 93 Monitoring electrodes] Respiratory 21 24 Rate Blood Pressure 165/81 H 154/73 H [Left Brachial artery] O2 Saturation 91 L 91 L 03/21/21 03/22/21 03/22/21 23:27 00:00 01:00 Temperature Heart Rate 104 H Heart Rate [ 84 84 Monitoring electrodes] Respiratory 25 H 23 Rate Blood Pressure 157/68 H 160/66 H [Left Brachial artery] O2 Saturation 90 L 92 03/22/21 03/22/21 03/22/21 02:00 02:42 03:00 Temperature 36.4 C L Heart Rate 102 H Heart Rate [ 90 86 Monitoring electrodes] Respiratory 20 19 Rate Blood Pressure 162/72 H 146/73 H [Left Brachial artery] O2 Saturation 91 L 92 03/22/21 03/22/21 03/22/21 04:47 05:00 06:00 Temperature Heart Rate Heart Rate [ 92 102 H Monitoring electrodes] Respiratory 27 H 28 H 33 H Rate Blood Pressure 160/75 H 110/98 H 130/74 [Left Brachial artery] O2 Saturation 88 L 90 L 87 L 03/22/21 03/22/21 03/22/21 07:00 08:00 09:00 Temperature Heart Rate 101 H Heart Rate [ 93 106 H 103 H Monitoring electrodes] Respiratory 26 H 30 H 38 H Rate Blood Pressure 159/68 H 169/71 H 162/68 H [Left Brachial artery] O2 Saturation 94 88 L 86 L 03/22/21 03/22/21 03/22/21 09:25 10:00 11:00 Temperature Heart Rate 111 H Heart Rate [ 115 H 111 H Monitoring electrodes] Respiratory 31 H 36 H Rate Blood Pressure 160/74 H [Left Brachial artery] O2 Saturation 91 L 91 L 03/22/21 03/22/21 03/22/21 11:25 12:00 13:00 Temperature 37.5 C Heart Rate 111 H Heart Rate [ 119 H 113 H Monitoring electrodes] Respiratory 36 H 37 H Rate Blood Pressure 169/66 H 159/61 H [Left Brachial artery] O2 Saturation 89 L 86 L 03/22/21 03/22/21 03/22/21 13:30 14:00 15:00 Temperature Heart Rate 114 H Heart Rate [ 111 H 114 H Monitoring electrodes] Respiratory 30 H 28 H Rate Blood Pressure 158/61 H 154/68 H [Left Brachial artery] O2 Saturation 87 L 88 L 03/22/21 03/22/21 03/22/21 15:35 16:00 16:22 Temperature 37 C Heart Rate 112 H Heart Rate [ 114 H Monitoring electrodes] Respiratory 30 H Rate Blood Pressure 161/66 H [Left Brachial artery] O2 Saturation 88 L Oxygen O2 Source BIPAP Oxygen Flow Rate 2 I&O (Last 24 Hrs): Intake and Output Totals x24h 03/20/21 03/21/21 03/22/21 23:59 23:59 23:59 Intake Total 1707 1422.15 1039.367 Output Total 1150 985 920 Balance 557 437.15 119.367 General: Alert, Other (wearing BIPAP mask) HEENT: Mucous membr. moist/pink Neck: Supple Neuro: Alert, Non Focal Cardiovascular: Regular rate (tachycardic), No murmurs Respiratory: Other (clear lung royal anteriorly) Abdomen: Soft Extremities: No edema, No tenderness/swelling - Results Results: Laboratory Results WBC 24.8 x10^3/uL (4.8-10.8) H 03/22/21 05:01 RBC 4.56 10^6/uL (4.20-5.40) 03/22/21 05:01 Hgb 12.2 g/dL (12.0-16.0) 03/22/21 05:01 Hct 37.3 % (37.0-47.0) 03/22/21 05:01 MCV 81.8 fL (81.0-99.0) 03/22/21 05:01 MCH 26.8 pg (27.0-31.0) L 03/22/21 05:01 MCHC 32.7 g/dL (32.0-36.0) 03/22/21 05:01 RDW 15.9 % (12.0-15.0) H 03/22/21 05:01 Plt Count 357 10^3/uL (130-450) 03/22/21 05:01 MPV 10.4 fL (7.9-10.8) 03/22/21 05:01 Neut # (Auto) Not Reportable 03/22/21 05:01 Lymph # (Auto) Not Reportable 03/22/21 05:01 [place] # (Auto) Not Reportable 03/22/21 05:01 Eos # (Auto) Not Reportable 03/22/21 05:01 Baso # (Auto) Not Reportable 03/22/21 05:01 Absolute Nucleated RBC Not Reportable 03/22/21 05:01 Band Neuts % (Manual) Not Reportable 03/22/21 05:01 Abnorm Lymph % (Manual) Not Reportable 03/22/21 05:01 Nucleated RBC % Not Reportable 03/22/21 05:01 Neutrophils # (Manual) Not Reportable 03/22/21 05:01 Lymphocytes # (Manual) Not Reportable 03/22/21 05:01 Monocytes # (Manual) Not Reportable 03/22/21 05:01 Eosinophils # (Manual) Not Reportable 03/22/21 05:01 Basophils # (Manual) Not Reportable 03/22/21 05:01 Differential Comment MANUAL DIFFERENTIAL 03/22/21 05:01 WBC Morphology NORMAL APPEARANCE (NORMAL) 03/22/21 05:01 Platelet Estimate NORMAL (130-450,000) (NORMAL) 03/22/21 05:01 Platelet Morphology NORMAL APPEARANCE (NORMAL) 03/22/21 05:01 RBC Morph Micro Appear NORMAL APPEARANCE (NORMAL) 03/22/21 05:01 Bld Gas Analysis Time 1200 03/22/21 12:00 Sample Site RIGHT RADIAL 03/22/21 12:00 ABG pH 7.51 (7.35-7.45) H 03/22/21 12:00 ABG pCO2 30 mmHg (34-45) L 03/22/21 12:00 ABG pO2 48 mmHg (80-100) L* 03/22/21 12:00 ABG HCO3 23.2 mmol/L (22.0-26.0) 03/22/21 12:00 ABG Total CO2 24.1 MMOL/L (21.0-29.0) 03/22/21 12:00 ABG O2 Saturation 87 % (94-98) L* 03/22/21 12:00 ABG Base Excess 1.2 mmol/L (-2.0-3.0) 03/22/21 12:00 Shalom Test POSITIVE 03/22/21 12:00 VBG pH 7.509 (7.31-7.41) H 03/21/21 05:38 Ionized Calcium 1.19 mmol/L (1.15-1.33) 03/21/21 05:38 Respiration Rate 8 b/min 03/22/21 12:00 O2 Delivery Device BiPAP 03/22/21 12:00 O2 Liters/Min 55.00 LPM 03/19/21 09:28 Vent Mode SYNCHRONOUS/TIMES 03/22/21 12:00 FiO2 100.00 03/22/21 12:00 PEEP 10 cmH2O 03/22/21 12:00 Pressure Support Vent 5 cmH2O 03/22/21 12:00 EPAP 10 cmH2O 03/22/21 12:00 IPAP 15 cmH2O 03/22/21 12:00 Sodium 137 mmol/L (135-145) 03/22/21 05:01 Potassium 4.0 mmol/L (3.5-5.0) 03/22/21 05:01 Chloride 100 mmol/L (101-111) L 03/22/21 05:01 Carbon Dioxide 24 mmol/L (21-32) 03/22/21 05:01 Anion Gap 13.0 (6-13) 03/22/21 05:01 BUN 36 mg/dL (6-20) H 03/22/21 05:01 Creatinine 0.7 mg/dL (0.4-1.0) 03/22/21 05:01 Estimated GFR (MDRD) 81 (>89) L 03/22/21 05:01 Glucose 122 mg/dL (70-100) H 03/22/21 05:01 Lactic Acid 1.9 mmol/L (0.5-2.2) 03/14/21 12:03 Calcium 9.0 mg/dL (8.5-10.3) 03/22/21 05:01 Phosphorus 3.7 mg/dL (2.5-4.6) 03/21/21 05:38 Magnesium 2.2 mg/dL (1.7-2.8) 03/22/21 05:01 Total Bilirubin 0.4 mg/dL (0.2-1.0) 03/18/21 08:05 Direct Bilirubin 0.2 mg/dL (0.1-0.5) 03/18/21 08:05 AST 71 IU/L (10-42) H 03/18/21 08:05 ALT 59 IU/L (10-60) 03/18/21 08:05 Alkaline Phosphatase 78 IU/L (42-121) 03/18/21 08:05 Troponin I High Sens 9.7 ng/L (2.3-14.8) 03/17/21 15:29 B-Natriuretic Peptide 87 pg/mL (5-100) 03/14/21 12:03 Total Protein 6.5 g/dL (6.7-8.2) L 03/18/21 08:05 Albumin 3.1 g/dL (3.2-5.5) L 03/18/21 08:05 Globulin 3.4 g/dL (2.1-4.2) 03/18/21 08:05 Albumin/Globulin Ratio 1.2 (1.0-2.2) 03/14/21 12:03 Lipase 27 U/L (22-51) 03/14/21 12:03 Nasal Adenovirus (PCR) NOT DETECTED 03/14/21 11:53 Nasal B. parapertussis DNA (PCR) NOT DETECTED 03/14/21 11:53 Nasal Coronavir 229E PCR NOT DETECTED 03/14/21 11:53 Nasal Coronavir HKU1 PCR NOT DETECTED 03/14/21 11:53 Nasal Coronavir NL63 PCR NOT DETECTED 03/14/21 11:53 Nasal Coronavir OC43 PCR NOT DETECTED 03/14/21 11:53 Nasal Enterovir/Rhinovir PCR NOT DETECTED 03/14/21 11:53 Nasal Influenza B PCR NOT DETECTED 03/14/21 11:53 Nasal Influenza A PCR NOT DETECTED 03/14/21 11:53 Nasal Parainfluen 1 PCR NOT DETECTED 03/14/21 11:53 Nasal Parainfluen 2 PCR NOT DETECTED 03/14/21 11:53 Nasal Parainfluen 3 PCR NOT DETECTED 03/14/21 11:53 Nasal Parainfluen 4 PCR NOT DETECTED 03/14/21 11:53 Nasal RSV (PCR) NOT DETECTED 03/14/21 11:53 Nasal Screen MRSA (PCR) NEGATIVE (NEGATIVE) 03/16/21 17:00 Nasal B.pertussis DNA PCR NOT DETECTED 03/14/21 11:53 Nasal C.pneumoniae (PCR) NOT DETECTED 03/14/21 11:53 Pancho Human Metapneumo PCR NOT DETECTED 03/14/21 11:53 Nasal M.pneumoniae (PCR) NOT DETECTED 03/14/21 11:53 Nasal SARS-CoV-2 (PCR) DETECTED A 03/14/21 11:53 Last Dose Date 03/20/21 03/21/21 10:48 Last Dose Time 2346 03/21/21 10:48 Vancomycin Trough 14.8 ug/mL (10.0-20.0) 03/21/21 10:48
--- NOTE | 2021-03-22 17:10 | ADVANCE CARE PLANNING NOTE ---
Advance Care Planning - Planning Encounter Date: 03/22/21 Time: 15:00 Purpose: To explain ventilator and determine if she is now willing to be intubated and to ascertain how she could be transferred to [place]. Parties in Attendance: I spoke to the patient, the at bedside, LUANNE Lopez was in the room, and friend Kathryn (in [place]) was on the phone. Decisional Capacity of the Patient: She appears to be communicating and expresses good understanding and appropriate responses. The is helping her make decisions as well. - Diagnosis for Encounter (1) Acute respiratory failure with hypoxia Summary: This is due to COVID pneumonia. Despite treatment with Remdesivir, Decadron, 2 empiric iv antibiotics and supplemental O2 by BIPAP at maximum settings, she is in worse resp distress and ABG shows worsening status. - Encounter Subjective/Patient's Story: This is a 80-year-old white female who is visiting here from [place]. She developed Covid symptoms, was admitted and has needed progressively higher FiO2. She is a full code but wishes to be DNI. The patient first said she wants to talk to [place] the friend and determine if [place] has had contact with God and follow what ever advice [place] has. Objective/Medical Story: During the phone call with [place] it was determined that trying maximal medical management including going on the ventilator should be done. [place] asked regarding treatment for her lungs in general and I explained that the patient has finished remdesivir, isgetting Decadron, getting to empiric IV antibiotics, that we have checked for fluid in the lungs and a clot in the lungs and she is getting maximum supplemental oxygen and her BiPAP settings currently. We do not give Ivermectin for treating this, I explained to Kathryn. Despite this, the patient's respiratory status is worsening with respiratory alkalosis and severe oxygen desaturations and severe respiratory distress with tachypnea today. Goals of Care: The patient, her and friend Kathryn want everything done to treat her. Plan: Will order intubation by Anesthesia, ventilator care, central line insertion, art line insertion, possibly contact an accepting provider at [facility] [place] in [place], [place], after her resp status stabilizes. Additional Discussion: Before the phone call with [place], the reached out to [employer] [facility] to learn if the patient is a candidate for air transfer to [place], [place], wanting to go to at [facility] [place]. The [employer] contact acid plant operator for [employer], Bela, spoke to me twice by the phone to get the patient's demographics and her diagnosis (at [phone]). Face sheets and progress notes were faxed to the [employer] contact acid plant operator at [phone], at her request. The [employer] person determined that since Medicare is the patient's primary insurance, and is secondary, and that Medicare would not pay for any portion of airflight. Itp-ju-tbeafa cost would be approximately $33,600. [facility] supplied the information regarding the ríos quote directly to the . Code Status: Attempt Resuscitation Time spent on advance care plannin min
--- NOTE | 2021-03-22 17:41 | ANESTHESIA PROCEDURE NOTE ---
Anesthesia Intubation Template - Intubation Blade: positive: Glidescope Tube: Size-enter number (7.5), Cuffed, Marked at teeth-enter cm (22) Route: Oral Placement Confirmation: End tidal CO2, Direct visualization, Bilateral breath sounds Complications: No complications (Called to intubate patient for impending respiratory failure, verbal consent obtained from patient, signed by . Patient on 100% O2 BiPAP, gave fentanyl 100mcg, 100 sux, 200 propofol in two doses, 50mg rocuronium IVP. Grade 1 view with glidescope 3 blade, no complications)
--- NOTE | 2021-03-22 17:43 | XRAY Report ---
PROCEDURE: Chest for Line Placement INDICATIONS: intubation, central line and OGT TECHNIQUE: One view of the chest was acquired. COMPARISON: Same day chest radiograph FINDINGS: Endotracheal tube terminates within the thoracic trachea in appropriate position. Enteric tube terminates in the abdomen, outside the field of view. Right IJ central line terminates in the cephalad portion of the SVC. Increased interstitial markings in both lungs as seen on same-day comparison study. No pneumothorax. IMPRESSION: Support devices in appropriate position. Reviewed by: Iker Pastor MD on 03/22/2021 4:41 PM [place] Approved by: Iker Pastor MD on 03/22/2021 4:41 PM AK Station ID: [id number]
--- NOTE | 2021-03-22 17:45 | ANESTHESIA PROCEDURE NOTE ---
Anesth Central Line Template - Central Line Central Line Preparation: Consent Obtained, Time out completed, Ultrasound used, Sterile prep and drape Central line location: Right IJ Central line type: Triple lumen Central line catheter tip site resides: Superior vena cava (SVC) Central line aftercare: Chlorhexidine disc placed, Secured, Placement confirmed, No pneumothorax, No complications, Bundle checklist complete, Pt tolerated well Other Info/Details: called to place central line post intubation. full sterile drape, gown, gloves, mask utilized. Right neck prepped and allowed to dry. Ultrasound used to image the right IJ and accessed with needle. Wire advanced with ease. Triple lumen inserted over wire and wire removed. Line sutured in place at 16cm, Chest xray obtained post placement with tip in the SVC. Patient tolerated well.
[2021-03-22] MEDS ORDERED: DEXMEDETOMIDINE 400 MCG/100 ML 100 ML IV SCH (18:00)
[2021-03-22 18:32] LABS: ABG BASE EXCESS -1.2 mmol/L (-2.0-3.0); ABG HCO3 27.2 mmol/L (22.0-26.0); ABG PH 7.27 (7.35-7.45); ABG PO2 101 mmHg (80-100)
[2021-03-22 18:35] LABS: ALLEN TEST POSITIVE
[2021-03-22 18:36] LABS: ABG MODE OF VENTILATION ASSIST/CONTROL; ABG PCO2 61 mmHg (34-45); ABG RESPIRATORY RATE 28 b/min
[2021-03-22 18:37] LABS: ABG OXYGEN SATURATION 97 % (94-98)
[2021-03-22] MEDS: PROPOFOL 1000 MG/100 ML 1,000 MG/100 ML BOTTLE IV SCH ×2 (18:48→23:38)
[2021-03-22] MEDS: MIDAZOLAM DRIP 50 MG/100 ML BAG IV SCH (20:10)
[2021-03-22] MEDS: ATORVASTATIN 10 MG TABLET PO SCH (21:34)
[2021-03-22 21:43] LABS: ABG BASE EXCESS -3.5 mmol/L (-2.0-3.0); ABG HCO3 23.3 mmol/L (22.0-26.0); ABG OXYGEN SATURATION 97 % (94-98); ABG PCO2 49 mmHg (34-45); ABG PH 7.29 (7.35-7.45); ABG PO2 103 mmHg (80-100); ABG TCO2 24.8 MMOL/L (21.0-29.0); ALLEN TEST POSITIVE
[2021-03-22 21:44] LABS: ABG MODE OF VENTILATION ASSIST/CONTROL; ABG RESPIRATORY RATE 30 b/min
[2021-03-23] MEDS: PROPOFOL 1000 MG/100 ML 1,000 MG/100 ML BOTTLE IV SCH ×4 (04:46→19:59)
[2021-03-23 05:01] LABS: BASOPHILS % (AUTO) 0.3 %; HCT - HEMATOCRIT 37.3 % (37.0-47.0); HGB - HEMOGLOBIN 11.6 g/dL (12.0-16.0); LYMPHOCYTES % (AUTO) 2.1 %; MEAN CORPUSCULAR HEMOGLOBIN 26.7 pg (27.0-31.0); MEAN CORPUSCULAR HGB CONC 31.1 g/dL (32.0-36.0); MEAN CORPUSCULAR VOLUME 85.7 fL (81.0-99.0); MEAN PLATELET VOLUME 10.2 fL (7.9-10.8); MONOCYTES % (AUTO) 3.3 %; PLT - PLATELET COUNT 319 10^3/uL (130-450); RED BLOOD COUNT 4.35 10^6/uL (4.20-5.40); RED CELL DISTRIBUTION WIDTH 15.9 % (12.0-15.0)
[2021-03-23 05:04] LABS: ABNORMAL LYMPHS % (MANUAL) 0 %
[2021-03-23 05:06] LABS: CALCIUM 8.7 mg/dL (8.5-10.3); CREATININE 1.2 mg/dL (0.4-1.0); MAGNESIUM 2.7 mg/dL (1.7-2.8); POTASSIUM 4.7 mmol/L (3.5-5.0)
[2021-03-23 05:20] LABS: ABG HCO3 25.4 mmol/L (22.0-26.0); ABG MODE OF VENTILATION ASSIST/CONTROL; ABG OXYGEN SATURATION 98 % (94-98); ABG PCO2 55 mmHg (34-45); ABG PH 7.29 (7.35-7.45); ABG PO2 134 mmHg (80-100); ABG RESPIRATORY RATE 30 b/min; ALLEN TEST POSITIVE
[2021-03-23 05:49] LABS: BAND NEUTROPHILS % (MANUAL) 4 %; DIFFERENTIAL COMMENT MANUAL DIFFERENTIAL; LYMPHOCYTES % (MANUAL) 4 %; MONOCYTES # (MANUAL) 0.5 10^3/uL (0.0-1.0); NEUTROPHILS # (MANUAL) 22.6 10^3/uL (1.5-6.6); PLATELET ESTIMATE, MANUAL NORMAL (130-450,000) (NORMAL); RBC MORPHOLOGY (MULTIPLE) NORMAL APPEARANCE (NORMAL)
[2021-03-23] MEDS: LIOTHYRONINE 25 MCG TABLET PO SCH (06:55)
[2021-03-23] MEDS: PANTOPRAZOLE 40 MG VIAL IVP SCH (06:55)
[2021-03-23] MEDS: SODIUM CHLORIDE FLUSH 0.9% 10 ML SYRINGE IVP SCH ×4 (06:56→23:06)
[2021-03-23] MEDS: CEFEPIME 2 GM in SODIUM CHLORIDE 0.9% MINIBAG 100 ML IV SCH ×2 (08:00→21:51)
[2021-03-23] MEDS ORDERED: amLODIPine 5 MG TABLET PO SCH (08:11)
[2021-03-23] MEDS ORDERED: ACETAMINOPHEN 325 MG TABLET PO PRN (08:12)
[2021-03-23] MEDS ORDERED: D5NS W/20 MEQ KCL 1,000 ML IV SCH (09:00)
[2021-03-23 09:11] LABS: ABG BASE EXCESS -2.5 mmol/L (-2.0-3.0); ABG HCO3 23.2 mmol/L (22.0-26.0); ABG OXYGEN SATURATION 97 % (94-98); ABG PCO2 43 mmHg (34-45); ABG PH 7.35 (7.35-7.45); ABG PO2 100 mmHg (80-100); ABG TCO2 24.5 MMOL/L (21.0-29.0); ALLEN TEST POSITIVE
[2021-03-23 09:12] LABS: ABG MODE OF VENTILATION AC/VCT; ABG RESPIRATORY RATE 30 b/min
[2021-03-23] MEDS: MIDAZOLAM DRIP 50 MG/100 ML BAG IV SCH ×2 (09:30→21:58)
[2021-03-23] MEDS: CHOLECALCIFEROL 25 MCG TABLET PO SCH (09:45)
[2021-03-23] MEDS: DEXAMETHASONE 4 MG/ML VIAL IVP SCH (09:45)
[2021-03-23] MEDS: ENOXAPARIN 40 MG/0.4 ML SYRINGE SUBQ SCH (09:45)
[2021-03-23] MEDS: polyethylene glycoL 3350 17 GM PACKET PO SCH (09:45)
[2021-03-23] MEDS: guaiFENesin 600 MG TABLET PO SCH ×2 (09:45→21:52)
[2021-03-23] MEDS: ZINC SULFATE 220 MG CAPSULE PO SCH (09:45)
[2021-03-23] MEDS: ASCORBIC ACID 500 MG TABLET PO SCH (09:47)
--- NOTE | 2021-03-23 10:51 | PROVIDER PROGRESS NOTE ---
Assessment/Plan - Problem List (1) Acute respiratory failure with hypoxia Assessment/Plan: Yesterday on BIPAP, her resp rate was up to 40, her ABG showed resp alkalosis with pO2 48 and sats dropped below 88%. When BIPAP was removed for <5 sec (to give ice chips or take meds orally), she desated to 70%. She was then intubated and placed on the vent, sedated with iv Versed and iv Propofol. A central line and ng tube were placed. Meds being given per ng. She has finished 5 days of Remdesivir. She remains on Decadron and is also on vancomycin and cefepime IV given her white count was rising. Her ABG today shows resp acidosis, thus her vent rate and TV were adjusted. She needs art line placed today. Will start ng feeds today. Will order proning daily, stop ng feeds when proned. Continue supportive measures. Overall prognosis remains guarded and this was discussed with her and her yesterday. (2) Pneumonia due to 2019 novel coronavirus Impression: This is the cause of respiratory failure as mentioned above. She has completed remdesivir. She remains on Decadron. Her CXR was repeated yesterday and showed worsening infiltrates. She was intubated yesterday. We will continue in the ICU with the plan as mentioned above. (3) Pre-renal azotemia For the last 2-3 days she had very little po intake, because she desaturated w hen BIPAP suppl O2 takem off for even 5 sec. Will start iv fluids at 60 cc/hr Will startr ng tube feeds today Follow BMP daily (4) History of aortic valve replacement Impression: We will be obtaining an Echocardiogram to assess her LV function and evaluate for any valvular disease. (5) Hypertension Impression: We will continue her current antihypertensives, changing to per ng or iv forms when on vent. (6) Hypothyroidism Impression: Continue Cytomel, will change to iv q5d or per ng tube, while on vent. - Current Meds Current Meds: Current Medications Generic Name Dose Route Start Last Admin Trade Name Freq PRN Reason Stop Dose Admin Amlodipine Besylate 10 mg 03/23/21 08:11 03/23/21 09:45 Amlodipine 5 Mg Tablet PO 10 mg DAILY ANDREINA Administration Ascorbic Acid 500 mg 03/17/21 09:00 03/23/21 09:47 Ascorbic Acid 500 Mg Tablet PO 500 mg DAILY ANDREINA Administration Aspirin 81 mg 03/16/21 09:00 03/22/21 08:57 Aspirin Ec 81 Mg Tablet PO 81 mg DAILY ANDREINA Administration Atorvastatin Calcium 20 mg 03/16/21 21:00 03/22/21 21:34 Atorvastatin 10 Mg Tablet PO 20 mg QPM ANDREINA Administration Calcium Carbonate/Glycine 500 mg 03/17/21 15:11 03/17/21 16:28 Calcium Carbonate Chew 500 Mg Tablet PO 500 mg BID PRN Administration Heartburn Cholecalciferol 50 mcg 03/16/21 16:00 03/23/21 09:45 Cholecalciferol 25 Mcg Tablet PO 50 mcg DAILY ANDREINA Administration Diphenhydramine HCl 25 mg 03/16/21 20:32 03/21/21 21:20 Diphenhydramine 25 Mg Capsule PO 25 mg QPM PRN Administration Insomnia Enoxaparin Sodium 40 mg 03/15/21 09:00 03/23/21 09:45 Enoxaparin 40 Mg/0.4 Ml Syringe SUBQ 40 mg DAILY ANDREINA Administration Guaifenesin 600 mg 03/15/21 12:00 03/23/21 09:45 Guaifenesin 600 Mg Tablet PO 600 mg BID ANDREINA Administration Hydralazine HCl 10 mg 03/14/21 17:23 03/20/21 09:30 Hydralazine Inj 20 Mg/Ml Vial IVP 10 mg Q4H PRN Administration PER PHYSICIAN ORDER Cefepime HCl 2 gm/ Sodium 100 mls @ 200 mls/hr 03/19/21 10:00 03/23/21 08:30 Chloride IV Infused BID ANDREINA Infusion Vancomycin HCl 1 gm/ Sodium 250 mls @ 167 mls/hr 03/19/21 23:00 03/23/21 00:55 Chloride IV Infused Q12H ANDREINA Infusion Midazolam HCl 50 mg in 100 mls @ 6.837 mls/hr 03/22/21 18:00 03/23/21 10:00 Versed Drip IV 0.04 mg/kg/hr .[id number] ANDREINA 6.837 mls/hr Titration Protocol 0.04 MG/KG/HR Propofol 1,000 mg in 100 mls @ 5.127 mls/hr 03/22/21 18:00 03/23/21 09:00 Diprivan IV 35 mcg/kg/min .[id number] ANDREINA 17.946 mls/hr Titration Protocol 10 MCG/KG/MIN Potassium Chloride/Dextrose/Sod Cl 1,000 mls @ 60 mls/hr 03/23/21 09:00 03/23/21 09:45 D5ns W/20 Meq Kcl IV 60 mls/hr .[id number] ANDREINA Administration Liothyronine Sodium 25 mcg 03/17/21 07:00 03/23/21 06:55 Liothyronine 25 Mcg Tablet PO 25 mcg QDAC ANDREINA Administration Morphine Sulfate 2 mg 03/17/21 01:03 03/22/21 17:24 Morphine 2 Mg/Ml Carpuject IVP 2 mg Q2HR PRN Administration PAIN Ondansetron HCl 4 mg 03/14/21 16:53 03/16/21 08:18 Ondansetron 4 Mg/2 Ml Vial IVP 4 mg Q6HR PRN Administration Nausea / Vomiting Pantoprazole Sodium 40 mg 03/23/21 07:00 03/23/21 06:55 Pantoprazole 40 Mg Vial IVP 40 mg QDAC ANDREINA Administration Polyethylene Glycol 17 gm 03/18/21 09:00 03/23/21 09:45 Polyethylene Glycol 3350 17 Gm Packet PO 17 gm DAILY ANDREINA Administration Sodium Chloride 10 ml 03/14/21 16:53 03/21/21 06:03 Sodium Chloride Flush 0.9% 10 Ml Syringe IVP 10 ml PRN PRN Administration NEEDED PER PROVIDER ORDERS Sodium Chloride 10 ml 03/14/21 17:00 03/23/21 09:46 Sodium Chloride Flush 0.9% 10 Ml Syringe IVP 10 ml 0100,0900,1700 ANDREINA Administration Throat Lozenges 1 lozenge 03/15/21 03:57 03/17/21 16:28 Benzocaine/Menthol Lozenge MM 1 lozenge Q2HR PRN Administration Throat pain Zinc Sulfate 220 mg 03/17/21 09:00 03/23/21 09:45 Zinc Sulfate 220 Mg Capsule PO 220 mg DAILY ANDREINA Administration - Lab Result Fish Bone Diagrams: 03/23/21 04:45 03/23/21 04:45 - Additional Planning My Orders: My Active Orders 03/22/21 15:56 Arterial Line Insertion - ICU [RC] .ONCE 03/22/21 17:42 RT [Initial Ventilator Settings] [RC] .ONCE 03/22/21 17:44 Ventilator Bundle Oral Care [RC] Q2H Ventilator Bundle [RC] Q8H Ventilator Care - ICU [RC] Q4HR 03/22/21 18:00 Midazolam Drip [Versed Drip] 50 mg in 100 ml IV 0.04 mg/kg/hr Propofol 1000 mg/100 ml [Diprivan] 1,000 mg in 100 ml IV 10 mcg/kg/min 03/22/21 19:20 Initial Ventilator Settings [RC] .ONCE 03/22/21 19:21 Ventilator Bundle Oral Care [RC] Q2H Ventilator Bundle [RC] Q8H Ventilator Care - ICU [RC] Q4HR 03/23/21 07:00 Pantoprazole [Protonix] 40 mg IVP QDAC 03/23/21 08:11 amLODIPine [Norvasc] 10 mg PO DAILY 03/23/21 08:12 Acetaminophen [Tylenol] 650 mg PO Q4HR PRN 03/23/21 09:00 D5ns W/20 Meq KCl 1,000 ml IV 60 mls/hr 03/23/21 10:28 Nutrition Consult [CONS] Routine 03/24/21 05:00 ABG - ARTERIAL BLOOD GAS [BG] DAILYLAB 03/25/21 05:00 ABG - ARTERIAL BLOOD GAS [BG] DAILYLAB 03/26/21 05:00 ABG - ARTERIAL BLOOD GAS [BG] DAILYLAB Subjective - Subjective Patient Reports: Other (Sedated, on the vent) Objective Vital Signs: Vital Signs - 24 hr 03/22/21 03/22/21 03/22/21 11:00 11:25 12:00 Temperature Heart Rate 111 H Heart Rate [ 111 H 119 H Monitoring electrodes] Respiratory 36 H 36 H Rate Blood Pressure 169/66 H [Left Brachial artery] O2 Saturation 91 L 89 L 03/22/21 03/22/21 03/22/21 13:00 13:30 14:00 Temperature 37.5 C Heart Rate 114 H Heart Rate [ 113 H 111 H Monitoring electrodes] Respiratory 37 H 30 H Rate Blood Pressure 159/61 H 158/61 H [Left Brachial artery] O2 Saturation 86 L 87 L 03/22/21 03/22/21 03/22/21 15:00 15:35 16:00 Temperature Heart Rate 112 H Heart Rate [ 114 H 114 H Monitoring electrodes] Respiratory 28 H 30 H Rate Blood Pressure 154/68 H 161/66 H [Left Brachial artery] O2 Saturation 88 L 88 L 03/22/21 03/22/21 03/22/21 16:22 17:00 17:05 Temperature 37 C 37 C Heart Rate 102 H Heart Rate [ 97 Monitoring electrodes] Respiratory 20 Rate Blood Pressure 121/57 L [Left Brachial artery] O2 Saturation 89 L 03/22/21 03/22/21 03/22/21 18:00 19:00 20:00 Temperature Heart Rate Heart Rate [ 108 H 97 91 Monitoring electrodes] Respiratory 28 H 33 H 24 Rate Blood Pressure 136/63 H 138/62 H 140/60 H [Left Brachial artery] O2 Saturation 92 91 L 91 L 03/22/21 03/22/21 03/22/21 21:00 21:09 22:00 Temperature 36.6 C Heart Rate 87 Heart Rate [ 87 83 Monitoring electrodes] Respiratory 24 25 H Rate Blood Pressure 123/57 L 111/55 L [Left Brachial artery] O2 Saturation 92 92 03/22/21 03/23/21 03/23/21 23:00 00:00 00:56 Temperature Heart Rate 76 Heart Rate [ 78 76 Monitoring electrodes] Respiratory 23 27 H Rate Blood Pressure 113/56 L 120/58 L [Left Brachial artery] O2 Saturation 93 94 03/23/21 03/23/21 03/23/21 01:00 02:00 02:53 Temperature Heart Rate Heart Rate [ 77 75 75 Monitoring electrodes] Respiratory 25 H 25 H 27 H Rate Blood Pressure 119/59 L 120/61 120/59 L [Left Brachial artery] O2 Saturation 94 94 92 03/23/21 03/23/21 03/23/21 04:00 05:00 05:01 Temperature Heart Rate 79 Heart Rate [ 75 78 Monitoring electrodes] Respiratory 29 H 25 H Rate Blood Pressure 120/63 122/58 L [Left Brachial artery] O2 Saturation 94 94 03/23/21 03/23/21 03/23/21 05:33 06:00 06:59 Temperature Heart Rate 78 Heart Rate [ 75 73 Monitoring electrodes] Respiratory 24 30 H Rate Blood Pressure 109/60 111/57 L [Left Brachial artery] O2 Saturation 91 L 92 03/23/21 03/23/21 03/23/21 07:19 08:00 09:00 Temperature 36.6 C 36.6 C Heart Rate 73 Heart Rate [ 72 74 Monitoring electrodes] Respiratory 30 H 30 H Rate Blood Pressure 107/56 L 127/61 [Left Brachial artery] O2 Saturation 93 93 03/23/21 03/23/21 03/23/21 09:05 10:00 10:48 Temperature Heart Rate 78 Heart Rate [ 73 72 Monitoring electrodes] Respiratory 30 H 30 H Rate Blood Pressure 128/61 128/61 [Left Brachial artery] O2 Saturation 93 92 Oxygen O2 Source Mechanical ventilator Oxygen Flow Rate 2 I&O (Last 24 Hrs): Intake and Output Totals x24h 03/21/21 03/22/21 03/23/21 23:59 23:59 23:59 Intake Total 1422.15 1339.367 753.365 Output Total 985 1125 190 Balance 437.15 214.367 563.365 General: Other ((Exam done remotely) She is sedated, on the vent, ET tube and ng tubes in place) HEENT: Mucous membr. moist/pink Neck: No JVD Neuro: Other (sedated) Cardiovascular: Regular rate Respiratory: Breath sounds nml Abdomen: Soft Extremities: No edema - Results Results: Laboratory Results WBC 24.0 x10^3/uL (4.8-10.8) H 03/23/21 04:45 RBC 4.35 10^6/uL (4.20-5.40) 03/23/21 04:45 Hgb 11.6 g/dL (12.0-16.0) L 03/23/21 04:45 Hct 37.3 % (37.0-47.0) 03/23/21 04:45 MCV 85.7 fL (81.0-99.0) 03/23/21 04:45 MCH 26.7 pg (27.0-31.0) L 03/23/21 04:45 MCHC 31.1 g/dL (32.0-36.0) L 03/23/21 04:45 RDW 15.9 % (12.0-15.0) H 03/23/21 04:45 Plt Count 319 10^3/uL (130-450) 03/23/21 04:45 MPV 10.2 fL (7.9-10.8) 03/23/21 04:45 Neut # (Auto) Not Reportable 03/23/21 04:45 Lymph # (Auto) Not Reportable 03/23/21 04:45 Campbell # (Auto) Not Reportable 03/23/21 04:45 Eos # (Auto) Not Reportable 03/23/21 04:45 Baso # (Auto) Not Reportable 03/23/21 04:45 Absolute Nucleated RBC Not Reportable 03/23/21 04:45 Total Counted 100 03/23/21 04:45 Band Neuts % (Manual) 4 % (0-10) 03/23/21 04:45 Abnorm Lymph % (Manual) 0 % 03/23/21 04:45 Nucleated RBC % Not Reportable 03/23/21 04:45 Neutrophils # (Manual) 22.6 10^3/uL (1.5-6.6) H 03/23/21 04:45 Lymphocytes # (Manual) 1.0 10^3/uL (1.5-3.5) L 03/23/21 04:45 Monocytes # (Manual) 0.5 10^3/uL (0.0-1.0) 03/23/21 04:45 Eosinophils # (Manual) 0.0 10^3/uL (0-0.7) 03/23/21 04:45 Basophils # (Manual) 0.0 10^3/uL (0-0.1) 03/23/21 04:45 Differential Comment MANUAL DIFFERENTIAL 03/23/21 04:45 WBC Morphology NORMAL APPEARANCE (NORMAL) 03/22/21 05:01 Platelet Estimate NORMAL (130-450,000) (NORMAL) 03/23/21 04:45 Platelet Morphology NORMAL APPEARANCE (NORMAL) 03/22/21 05:01 RBC Morph Micro Appear NORMAL APPEARANCE (NORMAL) 03/23/21 04:45 Bld Gas Analysis Time 90603/23/21 09:00 Sample Site LEFT RADIAL 03/23/21 09:00 ABG pH 7.35 (7.35-7.45) 03/23/21 09:00 ABG pCO2 43 mmHg (34-45) 03/23/21 09:00 ABG pO2 100 mmHg (80-100) 03/23/21 09:00 ABG HCO3 23.2 mmol/L (22.0-26.0) 03/23/21 09:00 ABG Total CO2 24.5 MMOL/L (21.0-29.0) 03/23/21 09:00 ABG O2 Saturation 97 % (94-98) 03/23/21 09:00 ABG Base Excess -2.5 mmol/L (-2.0-3.0) L 03/23/21 09:00 Shalom Test POSITIVE 03/23/21 09:00 VBG pH 7.509 (7.31-7.41) H 03/21/21 05:38 Ionized Calcium 1.19 mmol/L (1.15-1.33) 03/21/21 05:38 Respiration Rate 30 b/min 03/23/21 09:00 O2 Delivery Device VENTILATOR 03/23/21 09:00 O2 Liters/Min 55.00 LPM 03/19/21 09:28 Vent Mode AC/VCT 03/23/21 09:00 FiO2 90.00 03/23/21 09:00 Tidal Volume 400 mL 03/23/21 09:00 PEEP 15 cmH2O 03/23/21 09:00 Pressure Support Vent 5 cmH2O 03/22/21 12:00 EPAP 10 cmH2O 03/22/21 12:00 IPAP 15 cmH2O 03/22/21 12:00 Sodium 139 mmol/L (135-145) 03/23/21 04:45 Potassium 4.7 mmol/L (3.5-5.0) 03/23/21 04:45 Chloride 103 mmol/L (101-111) 03/23/21 04:45 Carbon Dioxide 26 mmol/L (21-32) 03/23/21 04:45 Anion Gap 10.0 (6-13) 03/23/21 04:45 BUN 61 mg/dL (6-20) H 03/23/21 04:45 Creatinine 1.2 mg/dL (0.4-1.0) H 03/23/21 04:45 Estimated GFR (MDRD) 43 (>89) L 03/23/21 04:45 Glucose 156 mg/dL (70-100) H 03/23/21 04:45 Lactic Acid 1.9 mmol/L (0.5-2.2) 03/14/21 12:03 Calcium 8.7 mg/dL (8.5-10.3) 03/23/21 04:45 Phosphorus 3.7 mg/dL (2.5-4.6) 03/21/21 05:38 Magnesium 2.7 mg/dL (1.7-2.8) 03/23/21 04:45 Total Bilirubin 0.4 mg/dL (0.2-1.0) 03/18/21 08:05 Direct Bilirubin 0.2 mg/dL (0.1-0.5) 03/18/21 08:05 AST 71 IU/L (10-42) H 03/18/21 08:05 ALT 59 IU/L (10-60) 03/18/21 08:05 Alkaline Phosphatase 78 IU/L (42-121) 03/18/21 08:05 Troponin I High Sens 9.7 ng/L (2.3-14.8) 03/17/21 15:29 B-Natriuretic Peptide 87 pg/mL (5-100) 03/14/21 12:03 Total Protein 6.5 g/dL (6.7-8.2) L 03/18/21 08:05 Albumin 3.1 g/dL (3.2-5.5) L 03/18/21 08:05 Globulin 3.4 g/dL (2.1-4.2) 03/18/21 08:05 Albumin/Globulin Ratio 1.2 (1.0-2.2) 03/14/21 12:03 Lipase 27 U/L (22-51) 03/14/21 12:03 Nasal Adenovirus (PCR) NOT DETECTED 03/14/21 11:53 Nasal B. parapertussis DNA (PCR) NOT DETECTED 03/14/21 11:53 Nasal Coronavir 229E PCR NOT DETECTED 03/14/21 11:53 Nasal Coronavir HKU1 PCR NOT DETECTED 03/14/21 11:53 Nasal Coronavir NL63 PCR NOT DETECTED 03/14/21 11:53 Nasal Coronavir OC43 PCR NOT DETECTED 03/14/21 11:53 Nasal Enterovir/Rhinovir PCR NOT DETECTED 03/14/21 11:53 Nasal Influenza B PCR NOT DETECTED 03/14/21 11:53 Nasal Influenza A PCR NOT DETECTED 03/14/21 11:53 Nasal Parainfluen 1 PCR NOT DETECTED 03/14/21 11:53 Nasal Parainfluen 2 PCR NOT DETECTED 03/14/21 11:53 Nasal Parainfluen 3 PCR NOT DETECTED 03/14/21 11:53 Nasal Parainfluen 4 PCR NOT DETECTED 03/14/21 11:53 Nasal RSV (PCR) NOT DETECTED 03/14/21 11:53 Nasal Screen MRSA (PCR) NEGATIVE (NEGATIVE) 03/16/21 17:00 Nasal B.pertussis DNA PCR NOT DETECTED 03/14/21 11:53 Nasal C.pneumoniae (PCR) NOT DETECTED 03/14/21 11:53 Pancho Human Metapneumo PCR NOT DETECTED 03/14/21 11:53 Nasal M.pneumoniae (PCR) NOT DETECTED 03/14/21 11:53 Nasal SARS-CoV-2 (PCR) DETECTED A 03/14/21 11:53 Last Dose Date 03/20/21 03/21/21 10:48 Last Dose Time 2346 03/21/21 10:48 Vancomycin Trough 14.8 ug/mL (10.0-20.0) 03/21/21 10:48
[2021-03-23] MEDS ORDERED: SODIUM CHLORIDE 0.9% 500 ML IV ONE (11:15)
--- NOTE | 2021-03-23 11:39 | ANESTHESIA PROCEDURE NOTE ---
Diagnosis: Covid 19 Procedure: A line Consent for Procedure(s) Verified and Reviewed: Yes Height and Weight: Height 5 ft 3 in Weight (kg) 85.457 kg Body Mass Index 33.3 Vital Signs: Temp Pulse Resp BP Pulse Ox 36.6 C 72 30 H 128/61 92 03/23/21 09:00 03/23/21 10:48 03/23/21 10:48 03/23/21 10:48 03/23/21 10:48 Allergies No Known Drug Allergies Allergy (Verified 03/14/21 11:01) ASA classification: 5-Moribund Is this case an emergency?: No Anes. Monitoring and Equipment: Non-invasive BP, Pulse oximetery, Central venous catheter, Sterile prep and drape Anes. Procedure Start Time: 11:20 Anes. Procedure Stop Time: 11:23 Procedure Notes: R radial Emily placed using seldinger technique by MEL Puckett. Attempt x1. Sterile prep/technique. Sutured in place. Sterile dressing applied and soft arm board in place. flushed easily. Transferred to the care of [facility].
[2021-03-23] MEDS: VANCOMYCIN INJ 1 GM in SODIUM CHLORIDE 0.9% 250 ML IV SCH ×2 (12:00→23:06)
[2021-03-23] MEDS: ATORVASTATIN 10 MG TABLET PO SCH (21:52)
[2021-03-24] MEDS: PROPOFOL 1000 MG/100 ML 1,000 MG/100 ML BOTTLE IV SCH ×5 (01:10→23:00)
[2021-03-24 05:52] LABS: BASOPHILS % (AUTO) 0.3 %; HCT - HEMATOCRIT 36.9 % (37.0-47.0); HGB - HEMOGLOBIN 11.3 g/dL (12.0-16.0); LYMPHOCYTES % (AUTO) 2.3 %; MEAN CORPUSCULAR HEMOGLOBIN 26.1 pg (27.0-31.0); MEAN CORPUSCULAR HGB CONC 30.6 g/dL (32.0-36.0); MEAN CORPUSCULAR VOLUME 85.2 fL (81.0-99.0); MONOCYTES % (AUTO) 4.1 %; NEUTROPHILS % (AUTO) 90.7 %; PLT - PLATELET COUNT 326 10^3/uL (130-450); RED BLOOD COUNT 4.33 10^6/uL (4.20-5.40); RED CELL DISTRIBUTION WIDTH 15.6 % (12.0-15.0); WHITE BLOOD COUNT 22.7 x10^3/uL (4.8-10.8)
[2021-03-24 06:01] LABS: ABNORMAL LYMPHS % (MANUAL) 0 %
[2021-03-24 06:03] LABS: CALCIUM 8.6 mg/dL (8.5-10.3); CREATININE 1.5 mg/dL (0.4-1.0); MAGNESIUM 2.8 mg/dL (1.7-2.8); POTASSIUM 4.5 mmol/L (3.5-5.0)
[2021-03-24 06:07] LABS: ALBUMIN 2.2 g/dL (3.2-5.5); ALBUMIN/GLOBULIN RATIO 0.6 (1.0-2.2); BILIRUBIN,TOTAL 0.6 mg/dL (0.2-1.0); CALCIUM 8.5 mg/dL (8.5-10.3); CREATININE 1.6 mg/dL (0.4-1.0); PHOSPHORUS 6.3 mg/dL (2.5-4.6); POTASSIUM 4.5 mmol/L (3.5-5.0)
[2021-03-24 06:14] LABS: BAND NEUTROPHILS % (MANUAL) 2 %; LYMPHOCYTES # (MANUAL) 1.1 10^3/uL (1.5-3.5); LYMPHOCYTES % (MANUAL) 5 %; MONOCYTES # (MANUAL) 0.7 10^3/uL (0.0-1.0); NEUTROPHILS # (MANUAL) 20.9 10^3/uL (1.5-6.6); PLATELET ESTIMATE, MANUAL NORMAL (130-450,000) (NORMAL); RBC MORPHOLOGY (MULTIPLE) NORMAL APPEARANCE (NORMAL)
[2021-03-24 06:15] LABS: DIFFERENTIAL COMMENT MANUAL DIFFERENTIAL
[2021-03-24] MEDS: LIOTHYRONINE 25 MCG TABLET PO SCH (06:44)
[2021-03-24] MEDS: PANTOPRAZOLE 40 MG VIAL IVP SCH (06:44)
[2021-03-24] MEDS ORDERED: D5NS W/20 MEQ KCL 1,000 ML IV SCH (07:50)
--- NOTE | 2021-03-24 07:50 | PROVIDER PROGRESS NOTE ---
Assessment/Plan - Problem List (1) Acute respiratory failure with hypoxia Assessment/Plan: She was failing on BIPAP, with resp rate was up to 40, despite maximum settings, and thus she was intubated and placed on the vent 2 days ago, is sedated with iv Versed and iv Propofol. A central line and ng tube were placed. Meds being given per ng. She has finished 5 days of Remdesivir. She remains on Decadron and is also on vancomycin and cefepime IV given her white count was rising. She received an art line yesterday. She started on ng tube feeds yesterday. She started yesterday to get proning daily, stopping ng feeds when proned and 1 hr prior. Continue supportive measures. Overall prognosis remains guarded and this was discussed with her and son by phone today. (2) On mechanically assisted ventilator Impression: She received an arterial line yesterday, has good sats on current vent settings. She is proning daily. Will allow several days on vent, before trying to wean. This was discussed w/ family today by phone. (3) Pneumonia due to 2019 novel coronavirus Impression: This is the cause of respiratory failure as mentioned above. She has completed remdesivir. She remains on Decadron. She was intubated 2 days ago. We will continue in the ICU with the plan as above. (4) BENJAMIN (Acute Kidney Injury) Her BUN/creat was climbing for 3 days (61/1.2 >> 89/1.5 yesterday >> 96/1.6 today) . For the early part of this admission, she had very little po intake, b ecause she desaturated when BIPAP suppl O2 was taken off for even 5 sec. When she got intubated 2 days ago, iv fluids and ng tube feeds were started. Echo was done yesterday and showed a small, underfilled LV cavity with hyperdynamic function, consistent with volume depletion. Will increase her iv rate from 60cc/hr to 83 cc/hr. Will give 1L of 3 amps bicarb in D5W. Avoid nephrotoxins, watch Vanco level Follow BMP daily (5) Hyperglycemia She has blood glu values of 238, 237 for the past 2 days, since starting iv with D5, and ng tube feeds and being on iv steroids. Will order glu fingerstick checks and ss Insulin coverage History of aortic valve replacement Impression: An Echocardiogram was done yesterday, showing a small, underfilled LV cavity with hyperdynamic function, and normally functioning aortic valve bioprosthesis. (6) Hypertension Impression: We will continue her current antihypertensives, changing to per ng (or iv forms) while she is on vent, but dose will be decreased as she is getting Versed which also decreases BP (7) Hypothyroidism Impression: Continue Cytomel, will change to iv q5d or per ng tube, while on vent. - Current Meds Current Meds: Current Medications Generic Name Dose Route Start Last Admin Trade Name Freq PRN Reason Stop Dose Admin Ascorbic Acid 500 mg 03/17/21 09:00 03/23/21 09:47 Ascorbic Acid 500 Mg Tablet PO 500 mg DAILY ANDREINA Administration Aspirin 81 mg 03/16/21 09:00 03/22/21 08:57 Aspirin Ec 81 Mg Tablet PO 81 mg DAILY ANDREINA Administration Atorvastatin Calcium 20 mg 03/16/21 21:00 03/23/21 21:52 Atorvastatin 10 Mg Tablet PO 20 mg QPM ANDREINA Administration Calcium Carbonate/Glycine 500 mg 03/17/21 15:11 03/17/21 16:28 Calcium Carbonate Chew 500 Mg Tablet PO 500 mg BID PRN Administration Heartburn Cholecalciferol 50 mcg 03/16/21 16:00 03/23/21 09:45 Cholecalciferol 25 Mcg Tablet PO 50 mcg DAILY ANDREINA Administration Diphenhydramine HCl 25 mg 03/16/21 20:32 03/21/21 21:20 Diphenhydramine 25 Mg Capsule PO 25 mg QPM PRN Administration Insomnia Enoxaparin Sodium 40 mg 03/15/21 09:00 03/23/21 09:45 Enoxaparin 40 Mg/0.4 Ml Syringe SUBQ 40 mg DAILY ANDREINA Administration Guaifenesin 600 mg 03/15/21 12:00 03/23/21 21:52 Guaifenesin 600 Mg Tablet PO 600 mg BID ANDREINA Administration Hydralazine HCl 10 mg 03/14/21 17:23 03/20/21 09:30 Hydralazine Inj 20 Mg/Ml Vial IVP 10 mg Q4H PRN Administration PER PHYSICIAN ORDER Cefepime HCl 2 gm/ Sodium 100 mls @ 200 mls/hr 03/19/21 10:00 03/23/21 21:51 Chloride IV 200 mls/hr BID ANDREINA Administration Vancomycin HCl 1 gm/ Sodium 250 mls @ 167 mls/hr 03/19/21 23:00 03/23/21 23:06 Chloride IV 167 mls/hr Q12H ANDREINA Administration Midazolam HCl 50 mg in 100 mls @ 6.837 mls/hr 03/22/21 18:00 03/23/21 21:58 Versed Drip IV 0.04 mg/kg/hr .[id number] ANDREINA 6.837 mls/hr Administration Protocol 0.04 MG/KG/HR Propofol 1,000 mg in 100 mls @ 5.127 mls/hr 03/22/21 18:00 03/24/21 06:44 Diprivan IV 35 mcg/kg/min .[id number] ANDREINA 17.946 mls/hr Administration Protocol 10 MCG/KG/MIN Liothyronine Sodium 25 mcg 03/17/21 07:00 03/24/21 06:44 Liothyronine 25 Mcg Tablet PO 25 mcg QDAC ANDREINA Administration Morphine Sulfate 2 mg 03/17/21 01:03 03/22/21 17:24 Morphine 2 Mg/Ml Carpuject IVP 2 mg Q2HR PRN Administration PAIN Ondansetron HCl 4 mg 03/14/21 16:53 03/16/21 08:18 Ondansetron 4 Mg/2 Ml Vial IVP 4 mg Q6HR PRN Administration Nausea / Vomiting Pantoprazole Sodium 40 mg 03/23/21 07:00 03/24/21 06:44 Pantoprazole 40 Mg Vial IVP 40 mg QDAC ANDREINA Administration Polyethylene Glycol 17 gm 03/18/21 09:00 03/23/21 09:45 Polyethylene Glycol 3350 17 Gm Packet PO 17 gm DAILY ANDREINA Administration Sodium Chloride 10 ml 03/14/21 16:53 03/21/21 06:03 Sodium Chloride Flush 0.9% 10 Ml Syringe IVP 10 ml PRN PRN Administration NEEDED PER PROVIDER ORDERS Sodium Chloride 10 ml 03/14/21 17:00 03/23/21 23:06 Sodium Chloride Flush 0.9% 10 Ml Syringe IVP 10 ml 0100,0900,1700 ANDREINA Administration Zinc Sulfate 220 mg 03/17/21 09:00 03/23/21 09:45 Zinc Sulfate 220 Mg Capsule PO 220 mg DAILY ANDREINA Administration - Lab Result Fish Bone Diagrams: 03/24/21 05:20 03/24/21 05:20 - Additional Planning My Orders: My Active Orders 03/23/21 07:00 Pantoprazole [Protonix] 40 mg IVP QDAC 03/23/21 08:12 Acetaminophen [Tylenol] 650 mg PO Q4HR PRN 03/23/21 10:28 Nutrition Consult [CONS] Routine 03/23/21 11:02 Daily Weight [RC] DAILY IO [RC] QSHIFT Tube Feeding [RC] QSHIFT 03/23/21 11:03 Miscellaenous Nursing Order [RC] QSHIFT 03/23/21 12:28 NPO except Meds [DIET] 03/24/21 05:00 ABG - ARTERIAL BLOOD GAS [BG] DAILYLAB 03/24/21 07:50 D5ns W/20 Meq KCl 1,000 ml IV 100 mls/hr 03/24/21 09:00 amLODIPine [Norvasc] 5 mg PO DAILY 03/25/21 05:00 ABG - ARTERIAL BLOOD GAS [BG] DAILYLAB 03/26/21 05:00 ABG - ARTERIAL BLOOD GAS [BG] DAILYLAB COMPREHENSIVE METABOLIC PANEL [CHEM] Timed MAGNESIUM [CHEM] Timed PHOSPHORUS [CHEM] Timed PREALBUMIN [CHEM] Timed 03/29/21 05:00 COMPREHENSIVE METABOLIC PANEL [CHEM] Timed MAGNESIUM [CHEM] Timed PHOSPHORUS [CHEM] Timed PREALBUMIN [CHEM] Timed Subjective - Subjective Nursing Reports: Sedated (on vent, currently proned) Objective Vital Signs: Vital Signs - 24 hr 03/23/21 03/23/21 03/23/21 08:00 09:00 09:05 Temperature 36.6 C 36.6 C Heart Rate 78 Heart Rate [ 72 74 Monitoring electrodes] Respiratory 30 H 30 H Rate Blood Pressure 107/56 L 127/61 [Left Brachial artery] Blood Pressure [Right Radial artery] O2 Saturation 93 93 03/23/21 03/23/21 03/23/21 10:00 10:48 11:44 Temperature Heart Rate 74 Heart Rate [ 73 72 Monitoring electrodes] Respiratory 30 H 30 H Rate Blood Pressure 128/61 128/61 [Left Brachial artery] Blood Pressure [Right Radial artery] O2 Saturation 93 92 03/23/21 03/23/21 03/23/21 11:49 13:00 13:35 Temperature 36.2 C L Heart Rate 68 Heart Rate [ 74 70 Monitoring electrodes] Respiratory 30 H 30 H Rate Blood Pressure 119/54 L 118/60 [Left Brachial artery] Blood Pressure 101/45 L 109/51 L [Right Radial artery] O2 Saturation 92 96 03/23/21 03/23/21 03/23/21 14:00 15:00 16:00 Temperature 36.5 C Heart Rate Heart Rate [ 72 72 71 Monitoring electrodes] Respiratory 32 H 30 H 32 H Rate Blood Pressure 126/56 L 120/63 130/61 [Left Brachial artery] Blood Pressure 117/53 L 113/52 L 115/52 L [Right Radial artery] O2 Saturation 96 95 95 03/23/21 03/23/21 03/23/21 16:14 17:00 17:42 Temperature Heart Rate 70 73 Heart Rate [ 71 Monitoring electrodes] Respiratory 32 H Rate Blood Pressure 127/61 [Left Brachial artery] Blood Pressure 119/53 L [Right Radial artery] O2 Saturation 95 03/23/21 03/23/21 03/23/21 18:00 19:00 20:00 Temperature Heart Rate Heart Rate [ 71 71 72 Monitoring electrodes] Respiratory 34 H 34 H 17 Rate Blood Pressure 133/59 H 125/59 L 117/62 [Left Brachial artery] Blood Pressure 119/52 L 117/52 L 108/50 L [Right Radial artery] O2 Saturation 90 L 90 L 91 L 03/23/21 03/23/21 03/23/21 21:00 22:00 22:04 Temperature Heart Rate 69 Heart Rate [ 71 70 Monitoring electrodes] Respiratory 17 21 Rate Blood Pressure 116/55 L 115/56 L [Left Brachial artery] Blood Pressure 104/49 L 105/48 L [Right Radial artery] O2 Saturation 90 L 90 L 03/23/21 03/24/21 03/24/21 23:00 00:00 01:00 Temperature Heart Rate Heart Rate [ 68 69 72 Monitoring electrodes] Respiratory 22 23 26 H Rate Blood Pressure 113/58 L 119/56 L 119/62 [Left Brachial artery] Blood Pressure 107/50 L 109/51 L 112/57 L [Right Radial artery] O2 Saturation 92 93 95 03/24/21 03/24/21 03/24/21 01:29 02:00 03:00 Temperature Heart Rate 73 Heart Rate [ 70 71 Monitoring electrodes] Respiratory 22 24 Rate Blood Pressure 122/59 L 123/58 L [Left Brachial artery] Blood Pressure 94/53 L 115/54 L [Right Radial artery] O2 Saturation 92 93 03/24/21 03/24/21 03/24/21 04:00 05:00 06:00 Temperature Heart Rate 76 Heart Rate [ 71 70 70 Monitoring electrodes] Respiratory 22 22 24 Rate Blood Pressure 124/62 127/59 L 133/61 H [Left Brachial artery] Blood Pressure 120/55 L 119/57 L 127/59 L [Right Radial artery] O2 Saturation 94 95 95 03/24/21 03/24/21 06:14 07:00 Temperature Heart Rate 78 Heart Rate [ 70 Monitoring electrodes] Respiratory 23 Rate Blood Pressure 127/56 L [Left Brachial artery] Blood Pressure 116/60 [Right Radial artery] O2 Saturation 99 Oxygen O2 Source Mechanical ventilator Oxygen Flow Rate 2 I&O (Last 24 Hrs): Intake and Output Totals x24h 03/22/21 03/23/21 03/24/21 23:59 23:59 23:59 Intake Total 4238.227 7569.235 244.919 Output Total 1125 645 130 Balance 120.402 5978.235 114.919 General: Other (sedated) HEENT: Mucous membr. moist/pink Neuro: Other (sedated) Cardiovascular: Regular rate Respiratory: No respiratory distress (while on vent and sedated) Abdomen: Other (ng feeds on hold while she is prone) Extremities: No edema - Results Results: Laboratory Results WBC 22.7 x10^3/uL (4.8-10.8) H 03/24/21 05:20 RBC 4.33 10^6/uL (4.20-5.40) 03/24/21 05:20 Hgb 11.3 g/dL (12.0-16.0) L 03/24/21 05:20 Hct 36.9 % (37.0-47.0) L 03/24/21 05:20 MCV 85.2 fL (81.0-99.0) 03/24/21 05:20 MCH 26.1 pg (27.0-31.0) L 03/24/21 05:20 MCHC 30.6 g/dL (32.0-36.0) L 03/24/21 05:20 RDW 15.6 % (12.0-15.0) H 03/24/21 05:20 Plt Count 326 10^3/uL (130-450) 03/24/21 05:20 MPV 11.0 fL (7.9-10.8) H 03/24/21 05:20 Neut # (Auto) Not Reportable 03/24/21 05:20 Lymph # (Auto) Not Reportable 03/24/21 05:20 [place] # (Auto) Not Reportable 03/24/21 05:20 Eos # (Auto) Not Reportable 03/24/21 05:20 Baso # (Auto) Not Reportable 03/24/21 05:20 Absolute Nucleated RBC Not Reportable 03/24/21 05:20 Total Counted 100 03/24/21 05:20 Band Neuts % (Manual) 2 % (0-10) 03/24/21 05:20 Abnorm Lymph % (Manual) 0 % 03/24/21 05:20 Nucleated RBC % Not Reportable 03/24/21 05:20 Neutrophils # (Manual) 20.9 10^3/uL (1.5-6.6) H 03/24/21 05:20 Lymphocytes # (Manual) 1.1 10^3/uL (1.5-3.5) L 03/24/21 05:20 Monocytes # (Manual) 0.7 10^3/uL (0.0-1.0) 03/24/21 05:20 Eosinophils # (Manual) 0.0 10^3/uL (0-0.7) 03/24/21 05:20 Basophils # (Manual) 0.0 10^3/uL (0-0.1) 03/24/21 05:20 Differential Comment MANUAL DIFFERENTIAL 03/24/21 05:20 WBC Morphology NORMAL APPEARANCE (NORMAL) 03/22/21 05:01 Platelet Estimate NORMAL (130-450,000) (NORMAL) 03/24/21 05:20 Platelet Morphology NORMAL APPEARANCE (NORMAL) 03/22/21 05:01 RBC Morph Micro Appear NORMAL APPEARANCE (NORMAL) 03/24/21 05:20 Bld Gas Analysis Time 0903/23/21 09:00 Sample Site LEFT RADIAL 03/23/21 09:00 ABG pH 7.35 (7.35-7.45) 03/23/21 09:00 ABG pCO2 43 mmHg (34-45) 03/23/21 09:00 ABG pO2 100 mmHg (80-100) 03/23/21 09:00 ABG HCO3 23.2 mmol/L (22.0-26.0) 03/23/21 09:00 ABG Total CO2 24.5 MMOL/L (21.0-29.0) 03/23/21 09:00 ABG O2 Saturation 97 % (94-98) 03/23/21 09:00 ABG Base Excess -2.5 mmol/L (-2.0-3.0) L 03/23/21 09:00 Shalom Test POSITIVE 03/23/21 09:00 VBG pH 7.509 (7.31-7.41) H 03/21/21 05:38 Ionized Calcium 1.19 mmol/L (1.15-1.33) 03/21/21 05:38 Respiration Rate 30 b/min 03/23/21 09:00 O2 Delivery Device VENTILATOR 03/23/21 09:00 O2 Liters/Min 55.00 LPM 03/19/21 09:28 Vent Mode AC/VCT 03/23/21 09:00 FiO2 90.00 03/23/21 09:00 Tidal Volume 400 mL 03/23/21 09:00 PEEP 15 cmH2O 03/23/21 09:00 Pressure Support Vent 5 cmH2O 03/22/21 12:00 EPAP 10 cmH2O 03/22/21 12:00 IPAP 15 cmH2O 03/22/21 12:00 Sodium 137 mmol/L (135-145) 03/24/21 05:20 Sodium 137 mmol/L (135-145) 03/24/21 05:20 Potassium 4.5 mmol/L (3.5-5.0) 03/24/21 05:20 Potassium 4.5 mmol/L (3.5-5.0) 03/24/21 05:20 Chloride 104 mmol/L (101-111) 03/24/21 05:20 Chloride 105 mmol/L (101-111) 03/24/21 05:20 Carbon Dioxide 21 mmol/L (21-32) 03/24/21 05:20 Carbon Dioxide 22 mmol/L (21-32) 03/24/21 05:20 Anion Gap 10.0 (6-13) 03/24/21 05:20 Anion Gap 12.0 (6-13) 03/24/21 05:20 BUN 89 mg/dL (6-20) H* 03/24/21 05:20 BUN 96 mg/dL (6-20) H* 03/24/21 05:20 Creatinine 1.5 mg/dL (0.4-1.0) H 03/24/21 05:20 Creatinine 1.6 mg/dL (0.4-1.0) H 03/24/21 05:20 Estimated GFR (MDRD) 31 (>89) L 03/24/21 05:20 Estimated GFR (MDRD) 33 (>89) L 03/24/21 05:20 Glucose 237 mg/dL (70-100) H 03/24/21 05:20 Glucose 238 mg/dL (70-100) H 03/24/21 05:20 Lactic Acid 1.9 mmol/L (0.5-2.2) 03/14/21 12:03 Calcium 8.5 mg/dL (8.5-10.3) 03/24/21 05:20 Calcium 8.6 mg/dL (8.5-10.3) 03/24/21 05:20 Phosphorus 6.3 mg/dL (2.5-4.6) H 03/24/21 05:20 Magnesium 2.8 mg/dL (1.7-2.8) 03/24/21 05:20 Total Bilirubin 0.6 mg/dL (0.2-1.0) 03/24/21 05:20 Direct Bilirubin 0.2 mg/dL (0.1-0.5) 03/18/21 08:05 AST 45 IU/L (10-42) H 03/24/21 05:20 ALT 54 IU/L (10-60) 03/24/21 05:20 Alkaline Phosphatase 73 IU/L (42-121) 03/24/21 05:20 Troponin I High Sens 9.7 ng/L (2.3-14.8) 03/17/21 15:29 B-Natriuretic Peptide 87 pg/mL (5-100) 03/14/21 12:03 Total Protein 6.0 g/dL (6.7-8.2) L 03/24/21 05:20 Albumin 2.2 g/dL (3.2-5.5) L 03/24/21 05:20 Globulin 3.8 g/dL (2.1-4.2) 03/24/21 05:20 Albumin/Globulin Ratio 0.6 (1.0-2.2) L 03/24/21 05:20 Prealbumin 10 mg/dL (18-45) L 03/24/21 05:20 Lipase 27 U/L (22-51) 03/14/21 12:03 Nasal Adenovirus (PCR) NOT DETECTED 03/14/21 11:53 Nasal B. parapertussis DNA (PCR) NOT DETECTED 03/14/21 11:53 Nasal Coronavir 229E PCR NOT DETECTED 03/14/21 11:53 Nasal Coronavir HKU1 PCR NOT DETECTED 03/14/21 11:53 Nasal Coronavir NL63 PCR NOT DETECTED 03/14/21 11:53 Nasal Coronavir OC43 PCR NOT DETECTED 03/14/21 11:53 Nasal Enterovir/Rhinovir PCR NOT DETECTED 03/14/21 11:53 Nasal Influenza B PCR NOT DETECTED 03/14/21 11:53 Nasal Influenza A PCR NOT DETECTED 03/14/21 11:53 Nasal Parainfluen 1 PCR NOT DETECTED 03/14/21 11:53 Nasal Parainfluen 2 PCR NOT DETECTED 03/14/21 11:53 Nasal Parainfluen 3 PCR NOT DETECTED 03/14/21 11:53 Nasal Parainfluen 4 PCR NOT DETECTED 03/14/21 11:53 Nasal RSV (PCR) NOT DETECTED 03/14/21 11:53 Nasal Screen MRSA (PCR) NEGATIVE (NEGATIVE) 03/16/21 17:00 Nasal B.pertussis DNA PCR NOT DETECTED 03/14/21 11:53 Nasal C.pneumoniae (PCR) NOT DETECTED 03/14/21 11:53 Pancho Human Metapneumo PCR NOT DETECTED 03/14/21 11:53 Nasal M.pneumoniae (PCR) NOT DETECTED 03/14/21 11:53 Nasal SARS-CoV-2 (PCR) DETECTED A 03/14/21 11:53 Last Dose Date 03/20/21 03/21/21 10:48 Last Dose Time 23403/21/21 10:48 Vancomycin Trough 14.8 ug/mL (10.0-20.0) 03/21/21 10:48
[2021-03-24 08:01] LABS: ABG BASE EXCESS -5.9 mmol/L (-2.0-3.0); ABG HCO3 20.9 mmol/L (22.0-26.0); ABG PCO2 47 mmHg (34-45); ABG PH 7.27 (7.35-7.45); ABG PO2 94 mmHg (80-100); ABG TCO2 22.3 MMOL/L (21.0-29.0)
[2021-03-24 08:02] LABS: ABG MODE OF VENTILATION AC/VCT; ABG OXYGEN SATURATION 97 % (94-98)
[2021-03-24 08:03] LABS: ABG RESPIRATORY RATE 30 b/min
[2021-03-24] MEDS: D5NS W/20 MEQ KCL 1,000 ML IV SCH ×2 (08:15→20:58)
[2021-03-24] MEDS: SODIUM CHLORIDE FLUSH 0.9% 10 ML SYRINGE IVP SCH ×3 (09:00→23:01)
[2021-03-24] MEDS ORDERED: SODIUM BICARBONATE 150 MEQ in DEXTROSE 5% 1,000 ML IV SCH (09:00)
[2021-03-24] MEDS: guaiFENesin 600 MG TABLET PO SCH ×2 (09:10→20:29)
[2021-03-24] MEDS: CHOLECALCIFEROL 25 MCG TABLET PO SCH (09:10)
[2021-03-24] MEDS: ENOXAPARIN 40 MG/0.4 ML SYRINGE SUBQ SCH (09:10)
[2021-03-24] MEDS: ASCORBIC ACID 500 MG TABLET PO SCH (09:10)
[2021-03-24] MEDS: ZINC SULFATE 220 MG CAPSULE PO SCH (09:10)
[2021-03-24] MEDS: polyethylene glycoL 3350 17 GM PACKET PO SCH (09:10)
[2021-03-24] MEDS: CEFEPIME 2 GM in SODIUM CHLORIDE 0.9% MINIBAG 100 ML IV SCH ×2 (09:10→20:25)
[2021-03-24] MEDS: amLODIPine 5 MG TABLET PO SCH (09:10)
[2021-03-24] MEDS: ASPIRIN EC 81 MG TABLET PO SCH (09:10)
[2021-03-24] MEDS: VANCOMYCIN INJ 1 GM in SODIUM CHLORIDE 0.9% 250 ML IV SCH ×2 (11:00→22:54)
[2021-03-24] MEDS: INSULIN REGULAR HUMAN 300 UNIT/3 ML VIAL SUBQ SCH ×2 (11:50→18:00)
[2021-03-24] MEDS: MIDAZOLAM DRIP 50 MG/100 ML BAG IV SCH (12:15)
[2021-03-24] MEDS: ATORVASTATIN 10 MG TABLET PO SCH (20:29)
[2021-03-25] MEDS: INSULIN REGULAR HUMAN 300 UNIT/3 ML VIAL SUBQ SCH ×4 (00:13→18:13)
[2021-03-25] MEDS: SODIUM CHLORIDE FLUSH 0.9% 10 ML SYRINGE IVP SCH ×3 (00:13→18:13)
[2021-03-25] MEDS: MIDAZOLAM DRIP 50 MG/100 ML BAG IV SCH ×2 (02:49→16:31)
[2021-03-25] MEDS: SODIUM CHLORIDE FLUSH 0.9% 10 ML SYRINGE IVP PRN ×5 (05:02→18:19)
[2021-03-25] MEDS: PROPOFOL 1000 MG/100 ML 1,000 MG/100 ML BOTTLE IV SCH ×4 (05:11→21:33)
[2021-03-25 05:43] LABS: ABG PCO2 39 mmHg (34-45); ABG PH 7.32 (7.35-7.45); ABG PO2 119 mmHg (80-100)
[2021-03-25 05:44] LABS: ABG HCO3 19.6 mmol/L (22.0-26.0)
[2021-03-25 05:45] LABS: ABG BASE EXCESS -5.9 mmol/L (-2.0-3.0); ABG MODE OF VENTILATION ASSIST/CONTROL; ABG OXYGEN SATURATION 98 % (94-98); ABG RESPIRATORY RATE 30 b/min; ABG TCO2 20.8 MMOL/L (21.0-29.0)
[2021-03-25 05:56] LABS: BASOPHILS % (AUTO) 0.2 %; EOSINOPHILS % (AUTO) 0.4 %; HCT - HEMATOCRIT 35.9 % (37.0-47.0); HGB - HEMOGLOBIN 11.3 g/dL (12.0-16.0); LYMPHOCYTES % (AUTO) 1.7 %; MEAN CORPUSCULAR HEMOGLOBIN 26.5 pg (27.0-31.0); MEAN CORPUSCULAR HGB CONC 31.5 g/dL (32.0-36.0); MEAN CORPUSCULAR VOLUME 84.1 fL (81.0-99.0); MEAN PLATELET VOLUME 10.9 fL (7.9-10.8); MONOCYTES % (AUTO) 2.9 %; PLT - PLATELET COUNT 311 10^3/uL (130-450); RED BLOOD COUNT 4.27 10^6/uL (4.20-5.40); RED CELL DISTRIBUTION WIDTH 15.8 % (12.0-15.0); WHITE BLOOD COUNT 24.9 x10^3/uL (4.8-10.8)
[2021-03-25 06:00] LABS: ABNORMAL LYMPHS % (MANUAL) 0 %
[2021-03-25] MEDS: LIOTHYRONINE 25 MCG TABLET PO SCH (06:12)
[2021-03-25] MEDS: PANTOPRAZOLE 40 MG VIAL IVP SCH (06:14)
[2021-03-25 06:17] LABS: BAND NEUTROPHILS % (MANUAL) 2 %; LYMPHOCYTES # (MANUAL) 0.7 10^3/uL (1.5-3.5); LYMPHOCYTES % (MANUAL) 3 %; NEUTROPHILS # (MANUAL) 23.2 10^3/uL (1.5-6.6); PLATELET ESTIMATE, MANUAL NORMAL (130-450,000) (NORMAL); PLATELET MORPHOLOGY NORMAL APPEARANCE (NORMAL); RBC MORPHOLOGY (MULTIPLE) NORMAL APPEARANCE (NORMAL); WBC MORPHOLOGY (MULTIPLE) NORMAL APPEARANCE (NORMAL)
[2021-03-25 06:18] LABS: CALCIUM 8.4 mg/dL (8.5-10.3); CREATININE 1.4 mg/dL (0.4-1.0); DIFFERENTIAL COMMENT MANUAL DIFFERENTIAL; MAGNESIUM 2.9 mg/dL (1.7-2.8); POTASSIUM 4.3 mmol/L (3.5-5.0)
[2021-03-25] MEDS: CHOLECALCIFEROL 25 MCG TABLET PO SCH (08:55)
[2021-03-25] MEDS: ASPIRIN CHEW 81 MG TABLET PO SCH (08:55)
[2021-03-25] MEDS: ASCORBIC ACID 500 MG TABLET PO SCH (08:56)
[2021-03-25] MEDS: ZINC SULFATE 220 MG CAPSULE PO SCH (08:59)
[2021-03-25] MEDS: polyethylene glycoL 3350 17 GM PACKET PO SCH (08:59)
[2021-03-25] MEDS: guaiFENesin 600 MG TABLET PO SCH ×2 (09:00→20:40)
[2021-03-25] MEDS: amLODIPine 5 MG TABLET PO SCH (09:01)
[2021-03-25] MEDS: CEFEPIME 2 GM in SODIUM CHLORIDE 0.9% MINIBAG 100 ML IV SCH ×2 (09:18→20:38)
[2021-03-25] MEDS: CHLORHEXIDINE GLUCONATE 15 ML UDC PO SCH ×2 (09:20→20:40)
[2021-03-25] MEDS: ENOXAPARIN 40 MG/0.4 ML SYRINGE SUBQ SCH (09:20)
[2021-03-25] MEDS: D5NS W/20 MEQ KCL 1,000 ML IV SCH ×2 (11:08→21:35)
[2021-03-25] MEDS ORDERED: SODIUM CHLORIDE 0.9% 500 ML IV PRN (11:09)
[2021-03-25 11:12] LABS: VANCOMYCIN,RANDOM 47.5 ug/mL
[2021-03-25] MEDS: VANCOMYCIN INJ 1 GM in SODIUM CHLORIDE 0.9% 250 ML IV SCH (11:22)
--- NOTE | 2021-03-25 11:25 | PROVIDER PROGRESS NOTE ---
Assessment/Plan - Problem List (1) Acute respiratory failure with hypoxia Assessment/Plan: She was failing on BIPAP, with resp rate was up to 40, despite maximum settings, and thus she was intubated and placed on the vent, is sedated with iv Versed and iv Propofol. A central line and ng tube were placed. Meds being given per ng. She has finished 5 days of Remdesivir. She remains on Decadron and is also on vancomycin and cefepime IV given her white count was rising. She has an arterial line and ng tube, getting tube feedswhen not proned. She is getting proning daily, stopping ng feeds when proned and 1 hr prior. Continue supportive measures. Overall prognosis remains guarded. The and son were updtaed by phone today. (2) On mechanically assisted ventilator Impression: She has an art line and has stable ABGs on current vent settings. She is proning daily and sats improve when she is proned. Will allow several days on vent, before trying to wean. This was discussed w/ family today by phone. (3) Pneumonia due to 2019 novel coronavirus Impression: This is the cause of respiratory failure as mentioned above. She has completed remdesivir. She remains on Decadron. She was intubated. We will continue in the ICU with the plan as above. (4) BENJAMIN (Acute Kidney Injury) Her BUN/creat was climbing, was 96/1.6 yesterday, felt to be ATN from dehydration and iv fluids, 1L D5 w/ Bicarb given yesterday and ng tube feeds were started. BUN down to 91 today. Echo was done on 03/23/21 and showed a small, underfilled LV cavity with hyperdynamic function, consistent with volume depletion. Continue iv fluids and ng water and liquid feeds. Avoid nephrotoxins, watch Vanco level Follow BMP daily (5) Hyperglycemia She has blood glu values of 238, 237 for the past several days, since starting iv with D5, and ng tube feeds and being on iv steroids. We ordered glu fingerstick checks and ss Insulin coverage History of aortic valve replacement Impression: An Echocardiogram was done on 03/23/21, showing a small, underfilled LV cavity with hyperdynamic function, and normally functioning aortic valve bioprosthesis. (6) Hypertension Impression: We will continue her current antihypertensives, changing to per ng (or iv forms) while she is on vent, but dose will be decreased as she is getting Versed which also decreases BP (7) Hypothyroidism Impression: Continue Cytomel, will change to iv q5d or per ng tube, while on vent. - Current Meds Current Meds: Current Medications Generic Name Dose Route Start Last Admin Trade Name Freq PRN Reason Stop Dose Admin Amlodipine Besylate 5 mg 03/24/21 09:00 03/25/21 09:01 Amlodipine 5 Mg Tablet PO Not Given DAILY ANDREINA Ascorbic Acid 500 mg 03/17/21 09:00 03/25/21 08:56 Ascorbic Acid 500 Mg Tablet PO 500 mg DAILY ANDREINA Administration Aspirin 81 mg 03/25/21 09:00 03/25/21 08:55 Aspirin Chew 81 Mg Tablet PO 81 mg DAILY ANDREINA Administration Atorvastatin Calcium 20 mg 03/16/21 21:00 03/24/21 20:29 Atorvastatin 10 Mg Tablet PO 20 mg QPM ANDREINA Administration Calcium Carbonate/Glycine 500 mg 03/17/21 15:11 03/17/21 16:28 Calcium Carbonate Chew 500 Mg Tablet PO 500 mg BID PRN Administration Heartburn Chlorhexidine Gluconate 15 ml 03/25/21 09:00 03/25/21 09:20 Chlorhexidine Gluconate 15 Ml Udc PO 15 ml BID ANDREINA Administration Cholecalciferol 50 mcg 03/16/21 16:00 03/25/21 08:55 Cholecalciferol 25 Mcg Tablet PO 50 mcg DAILY ANDREINA Administration Diphenhydramine HCl 25 mg 03/16/21 20:32 03/21/21 21:20 Diphenhydramine 25 Mg Capsule PO 25 mg QPM PRN Administration Insomnia Enoxaparin Sodium 40 mg 03/15/21 09:00 03/25/21 09:20 Enoxaparin 40 Mg/0.4 Ml Syringe SUBQ 40 mg DAILY ANDREINA Administration Guaifenesin 600 mg 03/15/21 12:00 03/25/21 09:00 Guaifenesin 600 Mg Tablet PO 600 mg BID ANDREINA Administration Hydralazine HCl 10 mg 03/14/21 17:23 03/20/21 09:30 Hydralazine Inj 20 Mg/Ml Vial IVP 10 mg Q4H PRN Administration PER PHYSICIAN ORDER Cefepime HCl 2 gm/ Sodium 100 mls @ 200 mls/hr 03/19/21 10:00 03/25/21 09:18 Chloride IV 200 mls/hr BID ANDREINA Administration Vancomycin HCl 1 gm/ Sodium 250 mls @ 167 mls/hr 03/19/21 23:00 03/25/21 00:30 Chloride IV Infused Q12H ANDREINA Infusion Midazolam HCl 50 mg in 100 mls @ 6.837 mls/hr 03/22/21 18:00 03/25/21 06:25 Versed Drip IV 0.04 mg/kg/hr .[id number] ANDREINA 6.837 mls/hr Titration Protocol 0.04 MG/KG/HR Propofol 1,000 mg in 100 mls @ 5.127 mls/hr 03/22/21 18:00 03/25/21 10:58 Diprivan IV 35 mcg/kg/min .[id number] ANDREINA 17.946 mls/hr Administration Protocol 10 MCG/KG/MIN Potassium Chloride/Dextrose/Sod Cl 1,000 mls @ 83.33 mls/hr 03/24/21 08:18 03/25/21 11:08 D5ns W/20 Meq Kcl IV 83.33 mls/hr .Q12H1M ANDREINA Administration Insulin Human Regular 1 - 5 unit 03/24/21 10:00 03/25/21 06:13 Insulin Regular Human 300 Unit/3 Ml Vial SUBQ 1 unit Q6HR ANDREINA Administration Protocol Liothyronine Sodium 25 mcg 03/17/21 07:00 03/25/21 06:12 Liothyronine 25 Mcg Tablet PO 25 mcg QDAC ANDREINA Administration Morphine Sulfate 2 mg 03/17/21 01:03 03/22/21 17:24 Morphine 2 Mg/Ml Carpuject IVP 2 mg Q2HR PRN Administration PAIN Ondansetron HCl 4 mg 03/14/21 16:53 03/16/21 08:18 Ondansetron 4 Mg/2 Ml Vial IVP 4 mg Q6HR PRN Administration Nausea / Vomiting Pantoprazole Sodium 40 mg 03/23/21 07:00 03/25/21 06:14 Pantoprazole 40 Mg Vial IVP 40 mg QDAC ANDREINA Administration Polyethylene Glycol 17 gm 03/18/21 09:00 03/25/21 08:59 Polyethylene Glycol 3350 17 Gm Packet PO 17 gm DAILY ANDREINA Administration Sodium Chloride 10 ml 03/14/21 16:53 03/25/21 11:20 Sodium Chloride Flush 0.9% 10 Ml Syringe IVP 30 ml PRN PRN Administration NEEDED PER PROVIDER ORDERS Sodium Chloride 10 ml 03/14/21 17:00 03/25/21 09:21 Sodium Chloride Flush 0.9% 10 Ml Syringe IVP 10 ml 0100,0900,1700 ANDREINA Administration Zinc Sulfate 220 mg 03/17/21 09:00 03/25/21 08:59 Zinc Sulfate 220 Mg Capsule PO 220 mg DAILY ANDREINA Administration - Lab Result Fish Bone Diagrams: 03/25/21 05:05 03/25/21 05:05 - Additional Planning My Orders: My Active Orders 03/25/21 10:58 CALCIUM, IONIZED ([facility]) [BG] Stat 03/25/21 11:09 Sodium Chloride 0.9% [Normal Saline 0.9%] 500 ml IV Q24H 03/26/21 05:00 ABG - ARTERIAL BLOOD GAS [BG] DAILYLAB COMPREHENSIVE METABOLIC PANEL [CHEM] Timed MAGNESIUM [CHEM] Timed PHOSPHORUS [CHEM] Timed PREALBUMIN [CHEM] Timed 03/29/21 05:00 COMPREHENSIVE METABOLIC PANEL [CHEM] Timed MAGNESIUM [CHEM] Timed PHOSPHORUS [CHEM] Timed PREALBUMIN [CHEM] Timed Subjective - Subjective Nursing Reports: Sedated Objective Vital Signs: Vital Signs - 24 hr 03/24/21 03/24/21 03/24/21 11:44 12:26 12:49 Temperature 36.5 C Heart Rate 71 Heart Rate [ 71 69 Monitoring electrodes] Respiratory 27 H 29 H Rate Blood Pressure 155/59 H 153/60 H [Left Brachial artery] Blood Pressure 133/52 H 107/51 L [Right Radial artery] O2 Saturation 100 100 03/24/21 03/24/21 03/24/21 14:00 14:48 14:55 Temperature Heart Rate 65 Heart Rate [ 65 65 Monitoring electrodes] Respiratory 30 H 23 Rate Blood Pressure 117/39 L 117/39 L [Left Brachial artery] Blood Pressure 107/45 L 109/45 L [Right Radial artery] O2 Saturation 100 100 03/24/21 03/24/21 03/24/21 16:00 17:00 18:00 Temperature 36.4 C L Heart Rate Heart Rate [ 64 64 63 Monitoring electrodes] Respiratory 34 H 33 H 35 H Rate Blood Pressure 133/55 H 137/59 H 136/54 H [Left Brachial artery] Blood Pressure 111/45 L 113/46 L 114/45 L [Right Radial artery] O2 Saturation 99 100 96 03/24/21 03/24/21 03/24/21 18:01 19:00 20:00 Temperature Heart Rate 66 Heart Rate [ 62 62 Monitoring electrodes] Respiratory 31 H 22 Rate Blood Pressure 127/53 L 130/53 L [Left Brachial artery] Blood Pressure 105/44 L 111/45 L [Right Radial artery] O2 Saturation 92 96 03/24/21 03/24/21 03/24/21 20:15 21:00 22:00 Temperature Heart Rate 62 Heart Rate [ 66 71 Monitoring electrodes] Respiratory 20 20 Rate Blood Pressure 132/50 H 138/50 H [Left Brachial artery] Blood Pressure 131/58 H 134/58 H [Right Radial artery] O2 Saturation 93 95 03/24/21 03/24/21 03/25/21 23:00 23:46 00:00 Temperature 36.7 C Heart Rate 71 Heart Rate [ 71 71 Monitoring electrodes] Respiratory 30 H 21 Rate Blood Pressure 115/47 L 135/62 H [Left Brachial artery] Blood Pressure 94/48 L 125/53 L [Right Radial artery] O2 Saturation 91 L 95 03/25/21 03/25/21 03/25/21 01:00 02:00 03:00 Temperature Heart Rate Heart Rate [ 75 74 74 Monitoring electrodes] Respiratory 19 18 20 Rate Blood Pressure 129/50 L 134/48 H 113/48 L [Left Brachial artery] Blood Pressure 126/51 L 130/50 L 112/48 L [Right Radial artery] O2 Saturation 95 92 90 L 03/25/21 03/25/21 03/25/21 03:30 04:00 05:00 Temperature Heart Rate 73 Heart Rate [ 74 77 Monitoring electrodes] Respiratory 21 18 Rate Blood Pressure 118/47 L 144/53 H [Left Brachial artery] Blood Pressure 116/48 L 143/61 H [Right Radial artery] O2 Saturation 89 L 99 03/25/21 03/25/21 03/25/21 06:00 07:00 08:07 Temperature Heart Rate 68 Heart Rate [ 79 79 Monitoring electrodes] Respiratory 17 19 Rate Blood Pressure 138/49 H 128/56 L [Left Brachial artery] Blood Pressure 123/54 L 122/56 L [Right Radial artery] O2 Saturation 88 L 79 L 03/25/21 03/25/21 03/25/21 08:47 09:00 10:00 Temperature 37.2 C Heart Rate Heart Rate [ 80 79 80 Monitoring electrodes] Respiratory 32 H 32 H 30 H Rate Blood Pressure 139/55 H 143/60 H 136/58 H [Left Brachial artery] Blood Pressure 111/44 L 117/41 L [Right Radial artery] O2 Saturation 92 90 L 89 L 03/25/21 03/25/21 10:39 11:00 Temperature Heart Rate 79 Heart Rate [ 81 Monitoring electrodes] Respiratory 30 H Rate Blood Pressure 137/50 H [Left Brachial artery] Blood Pressure 110/42 L [Right Radial artery] O2 Saturation 97 Oxygen O2 Source Mechanical ventilator Oxygen Flow Rate 2 I&O (Last 24 Hrs): Intake and Output Totals x24h 03/23/21 03/24/21 03/25/21 23:59 23:59 23:59 Intake Total 3418.496 4988.619 2018.194 Output Total 645 995 573 Balance 8999.238 8101.619 1445.194 General: Other ((Visit done remotely) She is sedated on the vent, currently pro fermin) HEENT: Mucous membr. moist/pink Neuro: Other (sedated) Cardiovascular: Regular rate Respiratory: No respiratory distress (sedated on the vent) Abdomen: Other (She is currently proned, ng feeds are off) - Results Results: Laboratory Results WBC 24.9 x10^3/uL (4.8-10.8) H 03/25/21 05:05 RBC 4.27 10^6/uL (4.20-5.40) 03/25/21 05:05 Hgb 11.3 g/dL (12.0-16.0) L 03/25/21 05:05 Hct 35.9 % (37.0-47.0) L 03/25/21 05:05 MCV 84.1 fL (81.0-99.0) 03/25/21 05:05 MCH 26.5 pg (27.0-31.0) L 03/25/21 05:05 MCHC 31.5 g/dL (32.0-36.0) L 03/25/21 05:05 RDW 15.8 % (12.0-15.0) H 03/25/21 05:05 Plt Count 311 10^3/uL (130-450) 03/25/21 05:05 MPV 10.9 fL (7.9-10.8) H 03/25/21 05:05 Neut # (Auto) Not Reportable 03/25/21 05:05 Lymph # (Auto) Not Reportable 03/25/21 05:05 [place] # (Auto) Not Reportable 03/25/21 05:05 Eos # (Auto) Not Reportable 03/25/21 05:05 Baso # (Auto) Not Reportable 03/25/21 05:05 Absolute Nucleated RBC Not Reportable 03/25/21 05:05 Total Counted 100 03/25/21 05:05 Band Neuts % (Manual) 2 % (0-10) 03/25/21 05:05 Abnorm Lymph % (Manual) 0 % 03/25/21 05:05 Nucleated RBC % Not Reportable 03/25/21 05:05 Neutrophils # (Manual) 23.2 10^3/uL (1.5-6.6) H 03/25/21 05:05 Lymphocytes # (Manual) 0.7 10^3/uL (1.5-3.5) L 03/25/21 05:05 Monocytes # (Manual) 1.0 10^3/uL (0.0-1.0) 03/25/21 05:05 Eosinophils # (Manual) 0.0 10^3/uL (0-0.7) 03/25/21 05:05 Basophils # (Manual) 0.0 10^3/uL (0-0.1) 03/25/21 05:05 Differential Comment MANUAL DIFFERENTIAL 03/25/21 05:05 WBC Morphology NORMAL APPEARANCE (NORMAL) 03/25/21 05:05 Platelet Estimate NORMAL (130-450,000) (NORMAL) 03/25/21 05:05 Platelet Morphology NORMAL APPEARANCE (NORMAL) 03/25/21 05:05 RBC Morph Micro Appear NORMAL APPEARANCE (NORMAL) 03/25/21 05:05 Bld Gas Analysis Time 0540 03/25/21 05:34 Sample Site A-LINE 03/25/21 05:34 ABG pH 7.32 (7.35-7.45) L 03/25/21 05:34 ABG pCO2 39 mmHg (34-45) 03/25/21 05:34 ABG pO2 119 mmHg (80-100) H 03/25/21 05:34 ABG HCO3 19.6 mmol/L (22.0-26.0) L 03/25/21 05:34 ABG Total CO2 20.8 MMOL/L (21.0-29.0) L 03/25/21 05:34 ABG O2 Saturation 98 % (94-98) 03/25/21 05:34 ABG Base Excess -5.9 mmol/L (-2.0-3.0) L 03/25/21 05:34 Shalom Test NOT APPLICABLE 03/25/21 05:34 VBG pH 7.509 (7.31-7.41) H 03/21/21 05:38 Ionized Calcium 1.19 mmol/L (1.15-1.33) 03/21/21 05:38 Respiration Rate 30 b/min 03/25/21 05:34 O2 Delivery Device VENTILATOR 03/25/21 05:34 O2 Liters/Min 55.00 LPM 03/19/21 09:28 Vent Mode ASSIST/CONTROL 03/25/21 05:34 FiO2 100.00 03/25/21 05:34 Tidal Volume 400 mL 03/25/21 05:34 PEEP 15 cmH2O 03/24/21 07:50 Pressure Support Vent 5 cmH2O 03/22/21 12:00 EPAP 10 cmH2O 03/22/21 12:00 IPAP 15 cmH2O 03/22/21 12:00 Sodium 139 mmol/L (135-145) 03/25/21 05:05 Potassium 4.3 mmol/L (3.5-5.0) 03/25/21 05:05 Chloride 106 mmol/L (101-111) 03/25/21 05:05 Carbon Dioxide 24 mmol/L (21-32) 03/25/21 05:05 Anion Gap 9.0 (6-13) 03/25/21 05:05 BUN 91 mg/dL (6-20) H* 03/25/21 05:05 Creatinine 1.4 mg/dL (0.4-1.0) H 03/25/21 05:05 Estimated GFR (MDRD) 36 (>89) L 03/25/21 05:05 Glucose 166 mg/dL (70-100) H 03/25/21 05:05 Lactic Acid 1.9 mmol/L (0.5-2.2) 03/14/21 12:03 Calcium 8.4 mg/dL (8.5-10.3) L 03/25/21 05:05 Phosphorus 4.3 mg/dL (2.5-4.6) 03/25/21 05:05 Magnesium 2.9 mg/dL (1.7-2.8) H 03/25/21 05:05 Total Bilirubin 0.6 mg/dL (0.2-1.0) 03/24/21 05:20 Direct Bilirubin 0.2 mg/dL (0.1-0.5) 03/18/21 08:05 AST 45 IU/L (10-42) H 03/24/21 05:20 ALT 54 IU/L (10-60) 03/24/21 05:20 Alkaline Phosphatase 73 IU/L (42-121) 03/24/21 05:20 Troponin I High Sens 9.7 ng/L (2.3-14.8) 03/17/21 15:29 B-Natriuretic Peptide 87 pg/mL (5-100) 03/14/21 12:03 Total Protein 6.0 g/dL (6.7-8.2) L 03/24/21 05:20 Albumin 2.2 g/dL (3.2-5.5) L 03/24/21 05:20 Globulin 3.8 g/dL (2.1-4.2) 03/24/21 05:20 Albumin/Globulin Ratio 0.6 (1.0-2.2) L 03/24/21 05:20 Prealbumin 10 mg/dL (18-45) L 03/24/21 05:20 Triglycerides 162 mg/dL (-149) H 03/24/21 05:50 Lipase 27 U/L (22-51) 03/14/21 12:03 Nasal Adenovirus (PCR) NOT DETECTED 03/14/21 11:53 Nasal B. parapertussis DNA (PCR) NOT DETECTED 03/14/21 11:53 Nasal Coronavir 229E PCR NOT DETECTED 03/14/21 11:53 Nasal Coronavir HKU1 PCR NOT DETECTED 03/14/21 11:53 Nasal Coronavir NL63 PCR NOT DETECTED 03/14/21 11:53 Nasal Coronavir OC43 PCR NOT DETECTED 03/14/21 11:53 Nasal Enterovir/Rhinovir PCR NOT DETECTED 03/14/21 11:53 Nasal Influenza B PCR NOT DETECTED 03/14/21 11:53 Nasal Influenza A PCR NOT DETECTED 03/14/21 11:53 Nasal Parainfluen 1 PCR NOT DETECTED 03/14/21 11:53 Nasal Parainfluen 2 PCR NOT DETECTED 03/14/21 11:53 Nasal Parainfluen 3 PCR NOT DETECTED 03/14/21 11:53 Nasal Parainfluen 4 PCR NOT DETECTED 03/14/21 11:53 Nasal RSV (PCR) NOT DETECTED 03/14/21 11:53 Nasal Screen MRSA (PCR) NEGATIVE (NEGATIVE) 03/16/21 17:00 Nasal B.pertussis DNA PCR NOT DETECTED 03/14/21 11:53 Nasal C.pneumoniae (PCR) NOT DETECTED 03/14/21 11:53 Pancho Human Metapneumo PCR NOT DETECTED 03/14/21 11:53 Nasal M.pneumoniae (PCR) NOT DETECTED 03/14/21 11:53 Nasal SARS-CoV-2 (PCR) DETECTED A 03/14/21 11:53 Last Dose Date 03/25/21 03/25/21 10:48 Last Dose Time 00:30 03/25/21 10:48 Vancomycin Trough 14.8 ug/mL (10.0-20.0) 03/21/21 10:48 Random Vancomycin 47.5 ug/mL 03/25/21 10:48
[2021-03-25 11:49] LABS: CALCIUM, IONIZED 1.19 mmol/L (1.15-1.33); VBG PH 7.27 (7.31-7.41)
[2021-03-25] MEDS: MIN OIL/DIMETHICON/COCONUT OIL 92 GM TUBE TOP PRN (18:19)
[2021-03-25] MEDS: ATORVASTATIN 10 MG TABLET PO SCH (20:40)
[2021-03-26] MEDS: INSULIN REGULAR HUMAN 300 UNIT/3 ML VIAL SUBQ SCH ×5 (00:09→23:43)
[2021-03-26] MEDS: SODIUM CHLORIDE FLUSH 0.9% 10 ML SYRINGE IVP SCH ×4 (00:09→20:17)
[2021-03-26] MEDS ORDERED: SODIUM CHLORIDE FLUSH 0.9% 10 ML SYRINGE IVP PRN (00:10)
[2021-03-26] MEDS: PROPOFOL 1000 MG/100 ML 1,000 MG/100 ML BOTTLE IV SCH ×4 (03:15→18:50)
[2021-03-26 05:10] LABS: ALLEN TEST POSITIVE
[2021-03-26 05:11] LABS: ABG MODE OF VENTILATION ASSIST/CONTROL
[2021-03-26 05:12] LABS: ABG BASE EXCESS -8.7 mmol/L (-2.0-3.0); ABG HCO3 19.8 mmol/L (22.0-26.0); ABG OXYGEN SATURATION 94 % (94-98); ABG PCO2 54 mmHg (34-45); ABG PO2 78 mmHg (80-100); ABG RESPIRATORY RATE 30 b/min; ABG TCO2 21.4 MMOL/L (21.0-29.0)
[2021-03-26 05:15] LABS: ABG PH 7.18 (7.35-7.45)
[2021-03-26] MEDS: MIDAZOLAM DRIP 50 MG/100 ML BAG IV SCH (06:01)
[2021-03-26] MEDS: SODIUM CHLORIDE FLUSH 0.9% 10 ML SYRINGE IVP PRN ×2 (06:01→06:06)
[2021-03-26 06:04] LABS: BASOPHILS % (AUTO) 0.4 %; EOSINOPHILS % (AUTO) 0.4 %; HCT - HEMATOCRIT 35.5 % (37.0-47.0); HGB - HEMOGLOBIN 10.6 g/dL (12.0-16.0); LYMPHOCYTES % (AUTO) 1.2 %; MEAN CORPUSCULAR HEMOGLOBIN 26.6 pg (27.0-31.0); MEAN CORPUSCULAR HGB CONC 29.9 g/dL (32.0-36.0); MEAN PLATELET VOLUME 11.1 fL (7.9-10.8); MONOCYTES % (AUTO) 1.9 %; NEUTROPHILS % (AUTO) 92.9 %; PLT - PLATELET COUNT 291 10^3/uL (130-450); RED BLOOD COUNT 3.99 10^6/uL (4.20-5.40); RED CELL DISTRIBUTION WIDTH 16.4 % (12.0-15.0); WHITE BLOOD COUNT 32.1 x10^3/uL (4.8-10.8)
[2021-03-26] MEDS: LIOTHYRONINE 25 MCG TABLET PO SCH (06:06)
[2021-03-26] MEDS: PANTOPRAZOLE 40 MG VIAL IVP SCH (06:07)
[2021-03-26 06:12] LABS: ABNORMAL LYMPHS % (MANUAL) 0 %
[2021-03-26 06:19] LABS: VANCOMYCIN,RANDOM 37.9 ug/mL
[2021-03-26 06:42] LABS: BAND NEUTROPHILS % (MANUAL) 2 %; DIFFERENTIAL COMMENT MANUAL DIFFERENTIAL; LYMPHOCYTES # (MANUAL) 0.6 10^3/uL (1.5-3.5); LYMPHOCYTES % (MANUAL) 2 %; MONOCYTES # (MANUAL) 0.3 10^3/uL (0.0-1.0); NEUTROPHILS # (MANUAL) 31.1 10^3/uL (1.5-6.6); PLATELET ESTIMATE, MANUAL NORMAL (130-450,000) (NORMAL); PLATELET MORPHOLOGY NORMAL APPEARANCE (NORMAL); RBC MORPHOLOGY (MULTIPLE) NORMAL APPEARANCE (NORMAL)
[2021-03-26] MEDS: metroNIDAZOLE 500 MG/100 ML 500 MG/100 ML BAG IV SCH ×3 (06:42→22:17)
[2021-03-26 06:45] LABS: ALBUMIN 1.9 g/dL (3.2-5.5); ALBUMIN/GLOBULIN RATIO 0.5 (1.0-2.2); BILIRUBIN,TOTAL 0.7 mg/dL (0.2-1.0); CALCIUM 8.5 mg/dL (8.5-10.3); PHOSPHORUS 5.9 mg/dL (2.5-4.6); TOTAL PROTEIN 5.6 g/dL (6.7-8.2)
[2021-03-26 06:48] LABS: POTASSIUM 6.4 mmol/L (3.5-5.0)
[2021-03-26] MEDS ORDERED: SODIUM BICARBONATE 8.4% 50 MEQ/50 ML VIAL ONE (06:51)
[2021-03-26] MEDS ORDERED: INSULIN REGULAR HUMAN 300 UNIT/3 ML VIAL IVP ONE (06:52)
[2021-03-26] MEDS ORDERED: DEXTROSE 50% ABBOJECT 25 GM/50 ML SYRINGE IVP ONE (06:53)
[2021-03-26] MEDS ORDERED: SODIUM POLYSTYRENE SULFONATE 15 GM/60 ML BOTTLE PO ONE (06:54)
[2021-03-26] MEDS ORDERED: SODIUM CHLORIDE 0.9% 1,000 ML IV SCH (07:00)
--- NOTE | 2021-03-26 07:49 | XRAY Report ---
PROCEDURE: Chest 1 View X-Ray INDICATIONS: dyspnea, hypoxia TECHNIQUE: One view of the chest was acquired. COMPARISON: March 22, 2021 FINDINGS: SUPPORT DEVICES: An enteric tube projects 4.7 cm from the ashley. The right IJ central venous catheter projects in expected location. Left cardiac device is noted. LUNGS/PLEURA: Prominence of interstitial versus bilateral pneumonic infiltrates. No large pleural effusion or pneumothorax. MEDIASTINUM: The cardiomediastinal silhouette is within normal limits. BONES/SOFT TISSUES: No acute abnormality. IMPRESSION: 1.Pulmonary edema versus bilateral pneumonia. Concordant interpretation with preliminary report. Reviewed by: Garcia Jerez MD on 03/26/2021 7:47 AM PST Approved by: Garcia Jerez MD on 03/26/2021 7:47 AM PST Station ID: [id number]
[2021-03-26] MEDS: SODIUM BICARBONATE 150 MEQ in DEXTROSE 5% 1,000 ML IV SCH ×2 (07:55→20:51)
[2021-03-26] MEDS: AZITHROMYCIN INJ 500 MG in SODIUM CHLORIDE 0.9% 250 ML IV SCH (09:05)
[2021-03-26] MEDS: ASCORBIC ACID 500 MG TABLET PO SCH (09:10)
[2021-03-26] MEDS: CHOLECALCIFEROL 25 MCG TABLET PO SCH (09:10)
[2021-03-26] MEDS: ZINC SULFATE 220 MG CAPSULE PO SCH (09:10)
[2021-03-26] MEDS: ASPIRIN CHEW 81 MG TABLET PO SCH (09:10)
[2021-03-26] MEDS: polyethylene glycoL 3350 17 GM PACKET PO SCH (09:10)
[2021-03-26] MEDS: ENOXAPARIN 40 MG/0.4 ML SYRINGE SUBQ SCH (09:10)
[2021-03-26] MEDS: guaiFENesin 600 MG TABLET PO SCH ×2 (09:10→20:16)
[2021-03-26] MEDS: amLODIPine 5 MG TABLET PO SCH (09:10)
[2021-03-26] MEDS: CHLORHEXIDINE GLUCONATE 15 ML UDC PO SCH ×2 (09:15→20:16)
[2021-03-26 10:01] LABS: ABG BASE EXCESS -9.7 mmol/L (-2.0-3.0); ABG HCO3 19.2 mmol/L (22.0-26.0); ABG OXYGEN SATURATION 93 % (94-98); ABG PCO2 56 mmHg (34-45); ABG PO2 72 mmHg (80-100); ABG TCO2 20.9 MMOL/L (21.0-29.0)
[2021-03-26 10:02] LABS: ABG MODE OF VENTILATION ASSIST/CONTROL; ALLEN TEST POSITIVE
[2021-03-26 10:03] LABS: ABG RESPIRATORY RATE 30 b/min
[2021-03-26 10:07] LABS: ABG PH 7.15 (7.35-7.45)
[2021-03-26] MEDS ORDERED: SODIUM CHLORIDE 0.9% 500 ML IV ONE (10:11)
[2021-03-26] MEDS ORDERED: SODIUM BICARBONATE ABBOJECT 50 MEQ/50 ML SYRINGE IVP ONE (10:30)
[2021-03-26] MEDS: CEFEPIME 2 GM in SODIUM CHLORIDE 0.9% MINIBAG 100 ML IV SCH ×2 (11:35→20:14)
[2021-03-26 12:16] LABS: ABG BASE EXCESS -7.1 mmol/L (-2.0-3.0); ABG HCO3 21.7 mmol/L (22.0-26.0); ABG OXYGEN SATURATION 96 % (94-98); ABG PO2 89 mmHg (80-100); ABG TCO2 23.5 MMOL/L (21.0-29.0)
[2021-03-26 12:17] LABS: ABG MODE OF VENTILATION ASSIST/CONTROL
[2021-03-26 12:19] LABS: ABG RESPIRATORY RATE 30 b/min
[2021-03-26 12:23] LABS: ABG PCO2 61 mmHg (34-45); ABG PH 7.17 (7.35-7.45)
[2021-03-26 12:50] LABS: CALCIUM 8.3 mg/dL (8.5-10.3); CREATININE 2.1 mg/dL (0.4-1.0); POTASSIUM 5.8 mmol/L (3.5-5.0)
--- NOTE | 2021-03-26 13:15 | PROVIDER PROGRESS NOTE ---
Assessment/Plan - Problem List (1) Acute respiratory failure with hypoxia Assessment/Plan: She was failing on BIPAP and was intubated and placed on the vent 4 days ago, is sedated with iv Versed and iv Propofol. A central line, an arterial line and ng tube were placed. Meds being given per ng. She has finished 5 days of Remdesivir. She remains on Decadron and was also on vancomycin and cefepime IV when her white count was rising. She is getting proning daily, stopping ng feeds when proned and 1 hr prior. Continue supportive measures. Overall prognosis remains guarded. The and son were updtaed by phone today. (2) On mechanically assisted ventilator Impression: She has an art line and has stable oxygen sats on current vent settings. She is proning daily and sats improve when she is proned. Will allow several days on vent, before trying to wean. This was discussed w/ family today by phone. (3) Metabiolic acidosis New low pH 7.18 this a.m. Etiology could be her significant renal failure or a worsening infection. A lactic last level was 2.2. We have broadened her antibiotics empirically. She is to continue to get iv bicarb in D5W drip and will get a bicarb amp push. Follow pH and BMP daily or more frequently. This significant new abnormality was discussed with the by phone today. (4) BENJAMIN (Acute Kidney Injury) Her BUN/creat continues to increase, felt to be ATN from dehydration (Echo was done on 03/23/21 and showed a small, underfilled LV cavity with hyperdynamic function, consistent with volume depletion), and from getting Vanco. IV Normal Saline fluids and D5 w/ Bicarb will continue, and ng water and liquid tube feeds. Avoid nephrotoxins, watch Vanco level Follow BMP daily or more often (5) Hyperkalemia Consistent with her acidosis and her renal failure. She received Insulin 10 units, D50 amp, Kayexalate and her fluids were changed and potassium removed from maintenance fluids. (6) Pneumonia due to 2019 novel coronavirus Impression: This was the initial cause of respiratory failure as mentioned above. She has completed a course of Remdesivir. She remains on Decadron. She was intubated. We will continue in the ICU with the plan as above. (7) Aspiration pneumonia Her chest x-ray today shows continued bilateral infiltrates and possible fluid. There was a concern yesterday of a cuff leak therefore aspiration pneumonia is a likely etiology of the worsened pH. IV antibiotics have been broadened: she was on cefepime and Vanco, and now we have added Flagyl and Azithromycin to cover anaerobes plus atypical bacteria. (8) Diarrhea Suspect that this was from receiving Kayexalate. The bowel movement started with a normal very large formed BM followed by more than 2 BMs that were liquidy Will check for C. difficile. We will stop the daily bowel protocol being given per NG. (9) Hyperglycemia She had blood glu values of 238, 237 for the past several days, since starting iv with D5, and ng tube feeds and being on iv steroids. We ordered glu fingerstick checks and ss Insulin coverage (10) Hypothyroidism Impression: Due to new PSVT yesterday, we assessed her TSH and it cameback excessively low. Will decrease her Cytomel dose. (11) PSVT Pt had a 14-beat run of PSVT, rate 160 yesterday. We assessed TSH and it cameback excessively low. Will decrease her Cytomel dose.Continue with iv fluids. (12) History of aortic valve replacement Impression: An Echocardiogram was done on 03/23/21, showing a small, underfilled LV cavity with hyperdynamic function, and normally functioning aortic valve bioprosthesis. (13) Hypertension We will continue her current antihypertensives, changing to per ng (or iv forms) while she is on vent, but dose will be decreased slightly as she is getting Versed which also decreases BP - Current Meds Current Meds: Current Medications Generic Name Dose Route Start Last Admin Trade Name Leyla PRN Reason Stop Dose Admin Amlodipine Besylate 5 mg 03/24/21 09:00 03/26/21 09:10 Amlodipine 5 Mg Tablet PO 5 mg DAILY ANDREINA Administration Ascorbic Acid 500 mg 03/17/21 09:00 03/26/21 09:10 Ascorbic Acid 500 Mg Tablet PO 500 mg DAILY ANDREINA Administration Aspirin 81 mg 03/25/21 09:00 03/26/21 09:10 Aspirin Chew 81 Mg Tablet PO 81 mg DAILY ANDREINA Administration Atorvastatin Calcium 20 mg 03/16/21 21:00 03/25/21 20:40 Atorvastatin 10 Mg Tablet PO 20 mg QPM ANDREINA Administration Chlorhexidine Gluconate 15 ml 03/25/21 09:00 03/26/21 09:15 Chlorhexidine Gluconate 15 Ml Udc PO 15 ml BID ANDREINA Administration Cholecalciferol 50 mcg 03/16/21 16:00 03/26/21 09:10 Cholecalciferol 25 Mcg Tablet PO 50 mcg DAILY ANDREINA Administration Enoxaparin Sodium 40 mg 03/15/21 09:00 03/26/21 09:10 Enoxaparin 40 Mg/0.4 Ml Syringe SUBQ 40 mg DAILY ANDREINA Administration Guaifenesin 600 mg 03/15/21 12:00 03/26/21 09:10 Guaifenesin 600 Mg Tablet PO 600 mg BID ANDREINA Administration Hydralazine HCl 10 mg 03/14/21 17:23 03/20/21 09:30 Hydralazine Inj 20 Mg/Ml Vial IVP 10 mg Q4H PRN Administration PER PHYSICIAN ORDER Cefepime HCl 2 gm/ Sodium 100 mls @ 200 mls/hr 03/19/21 10:00 03/26/21 11:35 Chloride IV 200 mls/hr BID ANDREINA Administration Midazolam HCl 50 mg in 100 mls @ 6.837 mls/hr 03/22/21 18:00 03/26/21 11:00 Versed Drip IV 03/26/21 17:59 0.05 mg/kg/hr .[id number] ANDREINA 8.546 mls/hr Titration Protocol 0.04 MG/KG/HR Propofol 1,000 mg in 100 mls @ 5.127 mls/hr 03/22/21 18:00 03/26/21 11:00 Diprivan IV 35 mcg/kg/min .[id number] ANDREINA 17.946 mls/hr Titration Protocol 10 MCG/KG/MIN Sodium Chloride 500 mls @ 10 mls/hr 03/25/21 11:09 03/26/21 07:55 Normal Saline 0.9% IV Infused Q24H PRN Infusion TKO RATE Sodium Bicarbonate 150 meq/ 1,150 mls @ 100 mls/hr 03/26/21 06:00 03/26/21 11:00 Dextrose IV 100 mls/hr .[id number] ANDREINA Infusion Metronidazole 500 mg in 100 mls @ 100 mls/hr 03/26/21 06:00 03/26/21 07:45 Flagyl 500 Mg/100 Ml IV Infused Q8H ANDREINA Infusion Azithromycin 500 mg/ Sodium 250 mls @ 250 mls/hr 03/26/21 09:00 03/26/21 10:05 Chloride IV 03/28/21 09:59 Infused DAILY ANDREINA Infusion Sodium Chloride 1,000 mls @ 83.333 mls/hr 03/26/21 07:00 03/26/21 09:05 Normal Saline 0.9% IV 0 mls/hr .Q12H ANDREINA Infusion Insulin Human Regular 1 - 5 unit 03/24/21 10:00 03/26/21 12:10 Insulin Regular Human 300 Unit/3 Ml Vial SUBQ 1 unit Q6HR ANDREINA Administration Protocol Mineral Oil 1 applic 03/25/21 18:09 03/25/21 18:19 Min Oil/Dimethicon/Coconut Oil 92 Gm Tube TOP 1 applic PRN PRN Administration Skin Care Morphine Sulfate 2 mg 03/17/21 01:03 03/22/21 17:24 Morphine 2 Mg/Ml Carpuject IVP 2 mg Q2HR PRN Administration PAIN Ondansetron HCl 4 mg 03/14/21 16:53 03/16/21 08:18 Ondansetron 4 Mg/2 Ml Vial IVP 4 mg Q6HR PRN Administration Nausea / Vomiting Pantoprazole Sodium 40 mg 03/23/21 07:00 03/26/21 06:07 Pantoprazole 40 Mg Vial IVP 40 mg QDAC ANDREINA Administration Polyethylene Glycol 17 gm 03/18/21 09:00 03/26/21 09:10 Polyethylene Glycol 3350 17 Gm Packet PO 17 gm DAILY ANDREINA Administration Sodium Chloride 10 ml 03/14/21 16:53 03/26/21 06:06 Sodium Chloride Flush 0.9% 10 Ml Syringe IVP 10 ml PRN PRN Administration NEEDED PER PROVIDER ORDERS Sodium Chloride 10 ml 03/14/21 17:00 03/26/21 08:00 Sodium Chloride Flush 0.9% 10 Ml Syringe IVP 10 ml 0100,0900,1700 ANDREINA Administration Sodium Chloride 20 ml 03/26/21 00:10 03/26/21 06:00 Sodium Chloride Flush 0.9% 10 Ml Syringe IVP 20 ml PRN PRN Administration After Blood Draw Zinc Sulfate 220 mg 03/17/21 09:00 03/26/21 09:10 Zinc Sulfate 220 Mg Capsule PO 220 mg DAILY ADNREINA Administration - Lab Result Fish Bone Diagrams: 03/26/21 05:54 03/26/21 12:00 - Additional Planning My Orders: My Active Orders 03/25/21 18:09 Min Oil/Dimeth/Coconut Oil Crm [Cavilon] 1 applic TOP PRN PRN 03/26/21 00:10 Sodium Chloride Flush 0.9% [Normal Saline Flush 0.9%] 20 ml IVP PRN PRN 03/26/21 12:00 ABG - ARTERIAL BLOOD GAS [BG] Timed 03/26/21 18:00 Midazolam Drip 50 mg/50 ml [Versed Drip 50 mg/50 ml] 50 mg in 50 ml IV 0.04 mg/kg/hr 03/27/21 05:00 CBC - COMP BLD CT W/AUTO DIFF [HEME] DAILYLAB CMP [COMPREHENSIVE METABOLIC PANEL] [CHEM] DAILYLAB 03/27/21 07:00 Liothyronine [Cytomel] 12.5 mcg PO QDAC 03/29/21 05:00 COMPREHENSIVE METABOLIC PANEL [CHEM] Timed MAGNESIUM [CHEM] Timed PHOSPHORUS [CHEM] Timed PREALBUMIN [CHEM] Timed Subjective - Subjective Patient Reports: Other (sedated on the vent) Nursing Reports: Other (Large formed BM at mid-day (after a.m. Kayexelate for hyperkalemia), then she had 2+ liquid BMs) Objective Vital Signs: Vital Signs - 24 hr 03/25/21 03/25/21 03/25/21 14:00 15:00 15:51 Temperature 36.9 C Heart Rate Heart Rate [ 89 87 88 Monitoring electrodes] Respiratory 25 H 30 H 30 H Rate Blood Pressure 140/44 H 146/48 H 146/48 H [Left Brachial artery] Blood Pressure 112/44 L 114/43 L [Right Radial artery] O2 Saturation 94 94 93 03/25/21 03/25/21 03/25/21 15:52 16:00 17:00 Temperature Heart Rate 88 Heart Rate [ 87 90 Monitoring electrodes] Respiratory 30 H 30 H Rate Blood Pressure 137/51 H 142/52 H [Left Brachial artery] Blood Pressure 106/47 L 116/50 L [Right Radial artery] O2 Saturation 92 93 03/25/21 03/25/21 03/25/21 17:57 18:00 19:00 Temperature Heart Rate 90 Heart Rate [ 88 88 Monitoring electrodes] Respiratory 30 H 30 H Rate Blood Pressure 131/46 H 124/52 L [Left Brachial artery] Blood Pressure 97/52 L 101/50 L [Right Radial artery] O2 Saturation 92 91 L 03/25/21 03/25/21 03/25/21 19:30 20:00 21:00 Temperature 36.7 C Heart Rate 87 Heart Rate [ 87 90 Monitoring electrodes] Respiratory 28 H 24 Rate Blood Pressure 129/50 L 140/51 H [Left Brachial artery] Blood Pressure 98/51 L 100/46 L [Right Radial artery] O2 Saturation 93 91 L 03/25/21 03/25/21 03/25/21 21:25 22:00 23:00 Temperature Heart Rate 91 Heart Rate [ 89 91 Monitoring electrodes] Respiratory 24 26 H Rate Blood Pressure 144/55 H 147/49 H [Left Brachial artery] Blood Pressure 109/46 L 105/45 L [Right Radial artery] O2 Saturation 91 L 90 L 03/25/21 03/26/21 03/26/21 23:40 00:00 00:53 Temperature Heart Rate 91 Heart Rate [ 92 93 Monitoring electrodes] Respiratory 26 H 28 H Rate Blood Pressure 137/57 H 133/49 H [Left Brachial artery] Blood Pressure 105/44 L 106/44 L [Right Radial artery] O2 Saturation 90 L 90 L 03/26/21 03/26/21 03/26/21 01:50 02:00 03:00 Temperature 36.5 C Heart Rate 94 Heart Rate [ 94 96 Monitoring electrodes] Respiratory 27 H 28 H Rate Blood Pressure 143/48 H 143/48 H [Left Brachial artery] Blood Pressure 103/44 L 105/45 L [Right Radial artery] O2 Saturation 92 92 03/26/21 03/26/21 03/26/21 03:35 04:00 05:00 Temperature Heart Rate 95 Heart Rate [ 95 96 Monitoring electrodes] Respiratory 32 H 27 H Rate Blood Pressure 147/50 H 146/46 H [Left Brachial artery] Blood Pressure 106/44 L 107/44 L [Right Radial artery] O2 Saturation 92 92 03/26/21 03/26/21 03/26/21 05:40 06:00 07:00 Temperature Heart Rate 96 Heart Rate [ 96 95 Monitoring electrodes] Respiratory 34 H 28 H Rate Blood Pressure 149/49 H 127/53 L [Left Brachial artery] Blood Pressure 110/48 L 101/45 L [Right Radial artery] O2 Saturation 91 L 91 L 03/26/21 03/26/21 03/26/21 07:56 08:00 09:00 Temperature 37.6 C Heart Rate 95 Heart Rate [ 94 95 Monitoring electrodes] Respiratory 33 H 26 H Rate Blood Pressure 142/47 H 135/42 H [Left Brachial artery] Blood Pressure 101/37 L 98/38 L [Right Radial artery] O2 Saturation 92 91 L 03/26/21 03/26/21 03/26/21 10:00 10:18 11:00 Temperature 37.1 C Heart Rate 95 Heart Rate [ 94 93 Monitoring electrodes] Respiratory 26 H 30 H Rate Blood Pressure 119/56 L 121/45 L [Left Brachial artery] Blood Pressure 85/36 L 82/35 L [Right Radial artery] O2 Saturation 91 L 96 03/26/21 03/26/21 12:00 12:03 Temperature Heart Rate 96 Heart Rate [ 91 Monitoring electrodes] Respiratory 31 H Rate Blood Pressure 128/48 L [Left Brachial artery] Blood Pressure 93/38 L [Right Radial artery] O2 Saturation 95 Oxygen O2 Source Mechanical ventilator Oxygen Flow Rate 2 I&O (Last 24 Hrs): Intake and Output Totals x24h 03/24/21 03/25/21 03/26/21 23:59 23:59 23:59 Intake Total 4257.619 3364.270 2925.523 Output Total 995 913 195 Balance 3262.619 2451.270 2730.523 General: Other ((Visit done remotely) Sedated on the vent, currently proned.) HEENT: Mucous membr. moist/pink Neuro: Other (Sedated) Cardiovascular: Regular rate Respiratory: Other (On the vent) Abdomen: Soft Extremities: No edema - Results Results: Laboratory Results WBC 32.1 x10^3/uL (4.8-10.8) H 03/26/21 05:54 RBC 3.99 10^6/uL (4.20-5.40) L 03/26/21 05:54 Hgb 10.6 g/dL (12.0-16.0) L 03/26/21 05:54 Hct 35.5 % (37.0-47.0) L 03/26/21 05:54 MCV 89.0 fL (81.0-99.0) 03/26/21 05:54 MCH 26.6 pg (27.0-31.0) L 03/26/21 05:54 MCHC 29.9 g/dL (32.0-36.0) L 03/26/21 05:54 RDW 16.4 % (12.0-15.0) H 03/26/21 05:54 Plt Count 291 10^3/uL (130-450) 03/26/21 05:54 MPV 11.1 fL (7.9-10.8) H 03/26/21 05:54 Neut # (Auto) Not Reportable 03/26/21 05:54 Lymph # (Auto) Not Reportable 03/26/21 05:54 [place] # (Auto) Not Reportable 03/26/21 05:54 Eos # (Auto) Not Reportable 03/26/21 05:54 Baso # (Auto) Not Reportable 03/26/21 05:54 Absolute Nucleated RBC Not Reportable 03/26/21 05:54 Total Counted 100 03/26/21 05:54 Band Neuts % (Manual) 2 % (0-10) 03/26/21 05:54 Abnorm Lymph % (Manual) 0 % 03/26/21 05:54 Nucleated RBC % Not Reportable 03/26/21 05:54 Neutrophils # (Manual) 31.1 10^3/uL (1.5-6.6) H 03/26/21 05:54 Lymphocytes # (Manual) 0.6 10^3/uL (1.5-3.5) L 03/26/21 05:54 Monocytes # (Manual) 0.3 10^3/uL (0.0-1.0) 03/26/21 05:54 Eosinophils # (Manual) 0.0 10^3/uL (0-0.7) 03/26/21 05:54 Basophils # (Manual) 0.0 10^3/uL (0-0.1) 03/26/21 05:54 Differential Comment MANUAL DIFFERENTIAL 03/26/21 05:54 WBC Morphology NORMAL APPEARANCE (NORMAL) 03/25/21 05:05 Platelet Estimate NORMAL (130-450,000) (NORMAL) 03/26/21 05:54 Platelet Morphology NORMAL APPEARANCE (NORMAL) 03/26/21 05:54 RBC Morph Micro Appear NORMAL APPEARANCE (NORMAL) 03/26/21 05:54 Bld Gas Analysis Time 1209 03/26/21 12:00 Sample Site RIGHT RADIAL 03/26/21 12:00 ABG pH 7.17 (7.35-7.45) L* 03/26/21 12:00 ABG pCO2 61 mmHg (34-45) H* 03/26/21 12:00 ABG pO2 89 mmHg (80-100) 03/26/21 12:00 ABG HCO3 21.7 mmol/L (22.0-26.0) L 03/26/21 12:00 ABG Total CO2 23.5 MMOL/L (21.0-29.0) 03/26/21 12:00 ABG O2 Saturation 96 % (94-98) 03/26/21 12:00 ABG Base Excess -7.1 mmol/L (-2.0-3.0) L 03/26/21 12:00 [place] Test NOT APPLICABLE 03/26/21 12:00 VBG pH 7.270 (7.31-7.41) L 03/25/21 11:20 Ionized Calcium 1.19 mmol/L (1.15-1.33) 03/25/21 11:20 Respiration Rate 30 b/min 03/26/21 12:00 O2 Delivery Device VENTILATOR 03/26/21 12:00 O2 Liters/Min 55.00 LPM 03/19/21 09:28 Vent Mode ASSIST/CONTROL 03/26/21 12:00 FiO2 95.00 03/26/21 12:00 Tidal Volume 400 mL 03/26/21 12:00 PEEP 12 cmH2O 03/26/21 12:00 Pressure Support Vent 5 cmH2O 03/22/21 12:00 EPAP 10 cmH2O 03/22/21 12:00 IPAP 15 cmH2O 03/22/21 12:00 Sodium 145 mmol/L (135-145) 03/26/21 12:00 Potassium 5.8 mmol/L (3.5-5.0) H 03/26/21 12:00 Chloride 113 mmol/L (101-111) H 03/26/21 12:00 Carbon Dioxide 24 mmol/L (21-32) 03/26/21 12:00 Anion Gap 8.0 (6-13) 03/26/21 12:00 BUN 108 mg/dL (6-20) H* 03/26/21 12:00 Creatinine 2.1 mg/dL (0.4-1.0) H 03/26/21 12:00 Estimated GFR (MDRD) 23 (>89) L 03/26/21 12:00 Glucose 184 mg/dL (70-100) H 03/26/21 12:00 Lactic Acid 1.8 mmol/L (0.5-2.2) 03/26/21 11:50 Calcium 8.3 mg/dL (8.5-10.3) L 03/26/21 12:00 Phosphorus 5.9 mg/dL (2.5-4.6) H 03/26/21 05:54 Magnesium 3.1 mg/dL (1.7-2.8) H 03/26/21 05:54 Total Bilirubin 0.7 mg/dL (0.2-1.0) 03/26/21 05:54 Direct Bilirubin 0.2 mg/dL (0.1-0.5) 03/18/21 08:05 AST 40 IU/L (10-42) 03/26/21 05:54 ALT 47 IU/L (10-60) 03/26/21 05:54 Alkaline Phosphatase 81 IU/L (42-121) 03/26/21 05:54 Troponin I High Sens 9.7 ng/L (2.3-14.8) 03/17/21 15:29 B-Natriuretic Peptide 87 pg/mL (5-100) 03/14/21 12:03 Total Protein 5.6 g/dL (6.7-8.2) L 03/26/21 05:54 Albumin 1.9 g/dL (3.2-5.5) L 03/26/21 05:54 Globulin 3.7 g/dL (2.1-4.2) 03/26/21 05:54 Albumin/Globulin Ratio 0.5 (1.0-2.2) L 03/26/21 05:54 Prealbumin 11 mg/dL (18-45) L 03/26/21 05:54 Triglycerides 162 mg/dL (-149) H 03/24/21 05:50 Lipase 27 U/L (22-51) 03/14/21 12:03 TSH 0.18 uIU/mL (0.34-5.60) L 03/26/21 05:54 Nasal Adenovirus (PCR) NOT DETECTED 03/14/21 11:53 Nasal B. parapertussis DNA (PCR) NOT DETECTED 03/14/21 11:53 Nasal Coronavir 229E PCR NOT DETECTED 03/14/21 11:53 Nasal Coronavir HKU1 PCR NOT DETECTED 03/14/21 11:53 Nasal Coronavir NL63 PCR NOT DETECTED 03/14/21 11:53 Nasal Coronavir OC43 PCR NOT DETECTED 03/14/21 11:53 Nasal Enterovir/Rhinovir PCR NOT DETECTED 03/14/21 11:53 Nasal Influenza B PCR NOT DETECTED 03/14/21 11:53 Nasal Influenza A PCR NOT DETECTED 03/14/21 11:53 Nasal Parainfluen 1 PCR NOT DETECTED 03/14/21 11:53 Nasal Parainfluen 2 PCR NOT DETECTED 03/14/21 11:53 Nasal Parainfluen 3 PCR NOT DETECTED 03/14/21 11:53 Nasal Parainfluen 4 PCR NOT DETECTED 03/14/21 11:53 Nasal RSV (PCR) NOT DETECTED 03/14/21 11:53 Nasal Screen MRSA (PCR) NEGATIVE (NEGATIVE) 03/16/21 17:00 Nasal B.pertussis DNA PCR NOT DETECTED 03/14/21 11:53 Nasal C.pneumoniae (PCR) NOT DETECTED 03/14/21 11:53 [place]o Human Metapneumo PCR NOT DETECTED 03/14/21 11:53 Nasal M.pneumoniae (PCR) NOT DETECTED 03/14/21 11:53 Nasal SARS-CoV-2 (PCR) DETECTED A 03/14/21 11:53 Last Dose Date UNK 03/26/21 05:54 Last Dose Time K 03/26/21 05:54 Vancomycin Trough 14.8 ug/mL (10.0-20.0) 03/21/21 10:48 Random Vancomycin 37.9 ug/mL 03/26/21 05:54
[2021-03-26] MEDS ORDERED: ZINC OXIDE 20% OINT 30 GM TUBE TOP PRN (14:24)
[2021-03-26] MEDS: MIDAZOLAM DRIP 50 MG/50 ML 50 MG/50 ML BAG IV SCH (18:00)
[2021-03-26] MEDS: ATORVASTATIN 10 MG TABLET PO SCH (20:16)
[2021-03-26] MEDS ORDERED: SODIUM BICARBONATE 150 MEQ in DEXTROSE 5% 1,000 ML IV SCH (21:00)
[2021-03-27 00:08] LABS: ABG PCO2 55 mmHg (34-45)
[2021-03-27 00:09] LABS: ABG BASE EXCESS -7.6 mmol/L (-2.0-3.0); ABG HCO3 20.5 mmol/L (22.0-26.0); ABG OXYGEN SATURATION 88 % (94-98); ABG TCO2 22.2 MMOL/L (21.0-29.0); ALLEN TEST POSITIVE
[2021-03-27 00:10] LABS: ABG PH 7.19 (7.35-7.45); ABG PO2 55 mmHg (80-100)
[2021-03-27 00:11] LABS: ABG MODE OF VENTILATION ASSIST/CONTROL; ABG RESPIRATORY RATE 30 b/min
[2021-03-27] MEDS: PROPOFOL 1000 MG/100 ML 1,000 MG/100 ML BOTTLE IV SCH ×4 (01:11→19:49)
[2021-03-27] MEDS: MIDAZOLAM DRIP 50 MG/50 ML 50 MG/50 ML BAG IV SCH ×2 (02:02→13:50)
[2021-03-27 05:19] LABS: BASOPHILS % (AUTO) 0.3 %; EOSINOPHILS % (AUTO) 0.6 %; HCT - HEMATOCRIT 33.2 % (37.0-47.0); LYMPHOCYTES % (AUTO) 1.1 %; MEAN CORPUSCULAR HEMOGLOBIN 26.8 pg (27.0-31.0); MEAN CORPUSCULAR HGB CONC 30.1 g/dL (32.0-36.0); MEAN PLATELET VOLUME 11.4 fL (7.9-10.8); MONOCYTES % (AUTO) 1.5 %; NEUTROPHILS % (AUTO) 93.9 %; PLT - PLATELET COUNT 218 10^3/uL (130-450); RED BLOOD COUNT 3.73 10^6/uL (4.20-5.40); RED CELL DISTRIBUTION WIDTH 16.6 % (12.0-15.0); WHITE BLOOD COUNT 30.3 x10^3/uL (4.8-10.8)
[2021-03-27 05:21] LABS: ABNORMAL LYMPHS % (MANUAL) 0 %
[2021-03-27] MEDS: metroNIDAZOLE 500 MG/100 ML 500 MG/100 ML BAG IV SCH ×3 (05:39→22:15)
[2021-03-27 05:41] LABS: BAND NEUTROPHILS % (MANUAL) 2 %; DIFFERENTIAL COMMENT MANUAL DIFFERENTIAL; LYMPHOCYTES # (MANUAL) 0.9 10^3/uL (1.5-3.5); LYMPHOCYTES % (MANUAL) 3 %; NEUTROPHILS # (MANUAL) 29.4 10^3/uL (1.5-6.6); PLATELET ESTIMATE, MANUAL NORMAL (130-450,000) (NORMAL); PLATELET MORPHOLOGY NORMAL APPEARANCE (NORMAL); RBC MORPHOLOGY (MULTIPLE) NORMAL APPEARANCE (NORMAL); WBC MORPHOLOGY (MULTIPLE) NORMAL APPEARANCE (NORMAL)
[2021-03-27 05:47] LABS: ALBUMIN 1.7 g/dL (3.2-5.5); ALBUMIN/GLOBULIN RATIO 0.5 (1.0-2.2); ALKALINE PHOSPHATASE 88 IU/L (42-121); ALT ALANINE AMINOTRANSFERASE 41 IU/L (10-60); AST ASPARTATE AMINOTRANSFERASE 36 IU/L (10-42); BILIRUBIN,TOTAL 0.5 mg/dL (0.2-1.0); CALCIUM 8.4 mg/dL (8.5-10.3); CARBON DIOXIDE - CO2 25 mmol/L (21-32); CHLORIDE 105 mmol/L (101-111); CREATININE 2.7 mg/dL (0.4-1.0); GFR - MDRD 17 (>89); GLUCOSE 228 mg/dL (70-100); POTASSIUM 5.7 mmol/L (3.5-5.0); SODIUM 141 mmol/L (135-145); TOTAL PROTEIN 5.3 g/dL (6.7-8.2); VANCOMYCIN,RANDOM 36.9 ug/mL
[2021-03-27 05:54] LABS: BUN - BLOOD UREA NITROGEN 113 mg/dL (6-20)
[2021-03-27 06:06] LABS: ABG BASE EXCESS -5.8 mmol/L (-2.0-3.0); ABG HCO3 23.4 mmol/L (22.0-26.0); ABG OXYGEN SATURATION 86 % (94-98); ABG PCO2 66 mmHg (34-45); ABG PH 7.17 (7.35-7.45); ABG PO2 55 mmHg (80-100); ABG TCO2 25.4 MMOL/L (21.0-29.0); ALLEN TEST POSITIVE
[2021-03-27 06:07] LABS: ABG MODE OF VENTILATION ASSIST/CONTROL; ABG RESPIRATORY RATE 30 b/min
[2021-03-27] MEDS: SODIUM CHLORIDE FLUSH 0.9% 10 ML SYRINGE IVP SCH ×3 (06:23→17:00)
[2021-03-27] MEDS: LIOTHYRONINE 25 MCG TABLET PO SCH (06:23)
[2021-03-27] MEDS: PANTOPRAZOLE 40 MG VIAL IVP SCH (06:23)
[2021-03-27] MEDS: INSULIN REGULAR HUMAN 300 UNIT/3 ML VIAL SUBQ SCH ×3 (06:37→19:09)
[2021-03-27] MEDS: ZINC SULFATE 220 MG CAPSULE PO SCH (08:00)
[2021-03-27] MEDS: CHOLECALCIFEROL 25 MCG TABLET PO SCH (08:00)
[2021-03-27] MEDS: ENOXAPARIN 40 MG/0.4 ML SYRINGE SUBQ SCH (08:00)
[2021-03-27] MEDS: guaiFENesin 600 MG TABLET PO SCH ×2 (08:00→21:08)
[2021-03-27] MEDS: amLODIPine 5 MG TABLET PO SCH (08:00)
[2021-03-27] MEDS: CHLORHEXIDINE GLUCONATE 15 ML UDC PO SCH ×2 (08:00→21:01)
[2021-03-27] MEDS: ASPIRIN CHEW 81 MG TABLET PO SCH (08:00)
[2021-03-27] MEDS: AZITHROMYCIN INJ 500 MG in SODIUM CHLORIDE 0.9% 250 ML IV SCH (08:00)
[2021-03-27] MEDS: ASCORBIC ACID 500 MG TABLET PO SCH ×2 (08:02→08:03)
[2021-03-27] MEDS: SODIUM BICARBONATE 150 MEQ in DEXTROSE 5% 1,000 ML IV SCH ×2 (08:25→21:02)
[2021-03-27] MEDS: CEFEPIME 2 GM in SODIUM CHLORIDE 0.9% MINIBAG 100 ML IV SCH ×2 (10:30→21:01)
--- NOTE | 2021-03-27 12:01 | PROVIDER PROGRESS NOTE ---
Assessment/Plan - Problem List (1) Acute respiratory failure with hypoxia Assessment/Plan: She was failing on BIPAP and was intubated and placed on the vent several days ago; she is sedated with iv Versed and iv Propofol. A central line, an arterial line and ng tube were placed. Meds being given per ng. The cause is COVID pneumonia. She has finished 5 days of Remdesivir. She remains on Decadron and antibx were broadened when possibly aspiration occurred. She is getting proning daily, stopping ng feeds when proned and 1 hr prior. Continue supportive measures. Overall prognosis remains guarded. The and son were updated in person at her bedside today. (2) On mechanically assisted ventilator Impression: She has an art line and is at 80-100% FIO2 on current vent settings. She is proning daily and sats improve slightly when she is proned. Continue on vent. This was discussed w/ family at bedside today. (3) Metabolic acidosis Her low pH around 7.18 persists. Etiology could be her significant renal failure or a worsening infection. We have broadened her antibiotics empirically. The wants her to be considered for hemodialysis. She is to continue to get iv bicarb in D5W drip and will get a bicarb amp push. Follow pH and BMP daily or more frequently. This significant new abnormality was discussed with the and son by phone over the past 2 days and in person, at bedside today. (4) BENJAMIN (Acute Kidney Injury) Her BUN/creat continues to worsen daily, yesterday she was oliguric. It was initially felt to be ATN from dehydration when the Echo (done 03/23/21) showed a small, underfilled LV cavity with hyperdynamic function, consistent with volume depletion). Also could be from getting Vanco. She has not been hypotensive but today her BP is "soft", will stop the Amlodipine therefore. Fluids continue with IV Normal Saline and D5 w/ Bicarb, and ng water and her liquid tube feeds. Avoid nephrotoxins, watch Vanco level Follow BMP daily or more often. I explained this worsening condition to the and son at her bedside today. The wants her to be considered for hemodialysis. I reached out to [facility] (no beds and long wait), [facility] and put her on wait list (poss bed opening in a day), and to [facility] and put her on wait list (poss bed opening in a day). Will continue to work on getting her to a hospital with higher level of care. All of their questions regarding hemodialysis and kidney transplant were answered to their satisfaction. (5) Hyperkalemia This is consistent with her acidosis and her renal failure. She received Insulin 10 units, D50 amp, Kayexalate and her fluids were changed and potassium removed from maintenance fluids. (6) Pneumonia due to 2019 novel coronavirus Impression: This was the initial cause of respiratory failure as mentioned above. She has completed a course of Remdesivir. She remains on Decadron. She was intubated. We will continue in the ICU with the plan as above. (7) Aspiration pneumonia Her chest x-ray yesterday showed continued bilateral infiltrates and possible fluid. There was a concern 2 days ago of a ET tube cuff leak, therefore aspiration pneumonia is a likely etiology of a worsened infection. She nakes no sputum IV antibiotics have been broadened: she was on cefepime and Vanco, and now we have added Flagyl and Azithromycin to cover anaerobes plus atypical bacteria. (8) Diarrhea Suspect that this was from receiving Kayexalate. The bowel movement started with a normal very large formed BM followed by more than 2 BMs that were liquidy We checked for C. difficile and it was negayive. We stopped the daily bowel protocol being given per NG. (9) Hyperglycemia She had blood glu values of 238, 237, since starting iv with D5, and ng tube feeds and being on iv steroids. She is getting glu fingerstick checks and ss Insulin coverage (10) Hypothyroidism Impression: Due to new PSVT several days ago, we assessed her TSH and it came back excessively low. We decreased her Cytomel dose. (11) PSVT Pt had a 14-beat run of PSVT, rate 160 several days ago, then not recurred. We assessed TSH and it cameback excessively low. We decreased her Cytomel dose.Continue with iv fluids. (12) History of aortic valve replacement Impression: An Echocardiogram was done on 03/23/21, showing a small, underfilled LV cavity with hyperdynamic function, and normally functioning aortic valve bioprosthesis. (13) Hx of Hypertension We had continued her home antihypertensive (Amlodipine po then per ng tube), but today her art line shows a "soft" BP. Will stop Amlodipine. - Current Meds Current Meds: Current Medications Generic Name Dose Route Start Last Admin Trade Name Freq PRN Reason Stop Dose Admin Ascorbic Acid 500 mg 03/17/21 09:00 03/27/21 08:03 Ascorbic Acid 500 Mg Tablet PO 500 mg DAILY ANDREINA Administration Aspirin 81 mg 03/25/21 09:00 03/27/21 08:00 Aspirin Chew 81 Mg Tablet PO 81 mg DAILY ANDREINA Administration Atorvastatin Calcium 20 mg 03/16/21 21:00 03/26/21 20:16 Atorvastatin 10 Mg Tablet PO 20 mg QPM ANDREINA Administration Chlorhexidine Gluconate 15 ml 03/25/21 09:00 03/27/21 08:00 Chlorhexidine Gluconate 15 Ml Udc PO 15 ml BID ANDREINA Administration Cholecalciferol 50 mcg 03/16/21 16:00 03/27/21 08:00 Cholecalciferol 25 Mcg Tablet PO 50 mcg DAILY ANDREINA Administration Enoxaparin Sodium 40 mg 03/15/21 09:00 03/27/21 08:00 Enoxaparin 40 Mg/0.4 Ml Syringe SUBQ 40 mg DAILY ANDREINA Administration Guaifenesin 600 mg 03/15/21 12:00 03/27/21 08:00 Guaifenesin 600 Mg Tablet PO 600 mg BID ANDREINA Administration Cefepime HCl 2 gm/ Sodium 100 mls @ 200 mls/hr 03/19/21 10:00 03/27/21 11:00 Chloride IV Infused BID ANDREINA Infusion Propofol 1,000 mg in 100 mls @ 5.127 mls/hr 03/22/21 18:00 03/27/21 11:15 Diprivan IV 30 mcg/kg/min .[id number] ANDREINA 15.382 mls/hr Titration Protocol 10 MCG/KG/MIN Sodium Chloride 500 mls @ 10 mls/hr 03/25/21 11:09 03/26/21 07:55 Normal Saline 0.9% IV Infused Q24H PRN Infusion TKO RATE Sodium Bicarbonate 150 meq/ 1,150 mls @ 100 mls/hr 03/26/21 06:00 03/27/21 11:00 Dextrose IV 100 mls/hr .[id number] ANDREINA Infusion Metronidazole 500 mg in 100 mls @ 100 mls/hr 03/26/21 06:00 03/27/21 06:45 Flagyl 500 Mg/100 Ml IV Infused Q8H ANDREINA Infusion Azithromycin 500 mg/ Sodium 250 mls @ 250 mls/hr 03/26/21 09:00 03/27/21 09:00 Chloride IV 03/28/21 09:59 Infused DAILY ANDREINA Infusion Midazolam HCl 50 mg in 50 mls @ 3.418 mls/hr 03/26/21 18:00 03/27/21 11:00 Versed Drip 50 Mg/50 Ml IV 0.05 mg/kg/hr .[id number] ANDREINA 4.273 mls/hr Titration Protocol 0.04 MG/KG/HR Insulin Human Regular 1 - 5 unit 03/24/21 10:00 03/27/21 06:37 Insulin Regular Human 300 Unit/3 Ml Vial SUBQ 2 unit Q6HR ANDREINA Administration Protocol Liothyronine Sodium 12.5 mcg 03/27/21 07:00 03/27/21 06:23 Liothyronine 25 Mcg Tablet PO 12.5 mcg QDAC ANDREINA Administration Mineral Oil 1 applic 03/25/21 18:09 03/25/21 18:19 Min Oil/Dimethicon/Coconut Oil 92 Gm Tube TOP 1 applic PRN PRN Administration Skin Care Multi-Ingredient Ointment 1 applic 03/26/21 14:24 03/26/21 14:40 Zinc Oxide 20% Oint 30 Gm Tube TOP 1 applic PRN PRN Administration Skin Care Ondansetron HCl 4 mg 03/14/21 16:53 03/16/21 08:18 Ondansetron 4 Mg/2 Ml Vial IVP 4 mg Q6HR PRN Administration Nausea / Vomiting Pantoprazole Sodium 40 mg 03/23/21 07:00 03/27/21 06:23 Pantoprazole 40 Mg Vial IVP 40 mg QDAC ANDREINA Administration Sodium Chloride 10 ml 03/14/21 17:00 03/27/21 08:03 Sodium Chloride Flush 0.9% 10 Ml Syringe IVP 10 ml 0100,0900,1700 ANDREINA Administration Sodium Chloride 20 ml 03/26/21 00:10 03/26/21 06:00 Sodium Chloride Flush 0.9% 10 Ml Syringe IVP 20 ml PRN PRN Administration After Blood Draw Zinc Sulfate 220 mg 03/17/21 09:00 03/27/21 08:00 Zinc Sulfate 220 Mg Capsule PO 220 mg DAILY ANDREINA Administration - Lab Result Fish Bone Diagrams: 03/27/21 04:52 03/27/21 04:52 - Additional Planning My Orders: My Active Orders 03/26/21 14:24 Zinc Oxide 20% Oint [Zinc Oxide] 1 applic TOP PRN PRN 03/26/21 18:00 Midazolam Drip 50 mg/50 ml [Versed Drip 50 mg/50 ml] 50 mg in 50 ml IV 0.04 mg/kg/hr 03/27/21 07:00 Liothyronine [Cytomel] 12.5 mcg PO QDAC 03/28/21 05:00 ABG - ARTERIAL BLOOD GAS [BG] DAILYLAB 03/29/21 05:00 ABG - ARTERIAL BLOOD GAS [BG] DAILYLAB COMPREHENSIVE METABOLIC PANEL [CHEM] Timed MAGNESIUM [CHEM] Timed PHOSPHORUS [CHEM] Timed PREALBUMIN [CHEM] Timed 03/30/21 05:00 ABG - ARTERIAL BLOOD GAS [BG] DAILYLAB Subjective - Subjective Nursing Reports: Other (Sedated) Objective Vital Signs: Vital Signs - 24 hr 03/26/21 03/26/21 03/26/21 12:00 12:03 13:00 Temperature Heart Rate 96 Heart Rate [ 91 87 Monitoring electrodes] Respiratory 31 H 32 H Rate Blood Pressure 128/48 L 121/41 L [Left Brachial artery] Blood Pressure 93/38 L 99/38 L [Right Radial artery] O2 Saturation 95 96 03/26/21 03/26/21 03/26/21 14:00 15:00 15:42 Temperature Heart Rate 86 Heart Rate [ 87 86 Monitoring electrodes] Respiratory 32 H 31 H Rate Blood Pressure 126/45 L 125/42 L [Left Brachial artery] Blood Pressure 101/39 L 102/39 L [Right Radial artery] O2 Saturation 96 96 03/26/21 03/26/21 03/26/21 16:00 17:00 18:00 Temperature 36.5 C Heart Rate Heart Rate [ 86 83 77 Monitoring electrodes] Respiratory 30 H 30 H 31 H Rate Blood Pressure 119/44 L 123/41 L 115/48 L [Left Brachial artery] Blood Pressure 103/39 L 104/40 L 94/33 L [Right Radial artery] O2 Saturation 96 97 91 L 03/26/21 03/26/21 03/26/21 19:00 19:30 20:00 Temperature Heart Rate 79 Heart Rate [ 78 79 Monitoring electrodes] Respiratory 30 H 31 H Rate Blood Pressure 118/46 L 119/40 L [Left Brachial artery] Blood Pressure 96/33 L 97/37 L [Right Radial artery] O2 Saturation 91 L 91 L 03/26/21 03/26/21 03/26/21 21:00 21:25 22:00 Temperature 36.4 C L Heart Rate 80 Heart Rate [ 79 82 Monitoring electrodes] Respiratory 31 H 31 H Rate Blood Pressure 119/40 L 115/46 L [Left Brachial artery] Blood Pressure 98/37 L 104/37 L [Right Radial artery] O2 Saturation 92 89 L 03/26/21 03/26/21 03/27/21 23:00 23:30 00:00 Temperature Heart Rate 83 Heart Rate [ 82 85 Monitoring electrodes] Respiratory 31 H 26 H Rate Blood Pressure 121/42 L 119/60 [Left Brachial artery] Blood Pressure 107/37 L 110/39 L [Right Radial artery] O2 Saturation 88 L 92 03/27/21 03/27/21 03/27/21 01:00 01:40 01:59 Temperature 36.6 C Heart Rate 87 Heart Rate [ 87 88 Monitoring electrodes] Respiratory 28 H 30 H Rate Blood Pressure 134/48 H 118/45 L [Left Brachial artery] Blood Pressure 114/41 L 105/39 L [Right Radial artery] O2 Saturation 93 91 L 03/27/21 03/27/21 03/27/21 03:00 03:35 04:00 Temperature Heart Rate 88 Heart Rate [ 88 90 Monitoring electrodes] Respiratory 30 H 28 H Rate Blood Pressure 130/49 L 130/47 L [Left Brachial artery] Blood Pressure 101/38 L 99/37 L [Right Radial artery] O2 Saturation 92 90 L 03/27/21 03/27/21 03/27/21 05:00 05:35 06:00 Temperature Heart Rate 89 Heart Rate [ 89 89 Monitoring electrodes] Respiratory 28 H 30 H Rate Blood Pressure 128/49 L 123/42 L [Left Brachial artery] Blood Pressure 103/38 L 77/32 L [Right Radial artery] O2 Saturation 89 L 86 L 03/27/21 03/27/21 03/27/21 07:00 07:29 08:00 Temperature 36.5 C Heart Rate 91 Heart Rate [ 90 93 Monitoring electrodes] Respiratory 30 H 30 H Rate Blood Pressure 118/39 L 124/41 L [Left Brachial artery] Blood Pressure 85/34 L 90/34 L [Right Radial artery] O2 Saturation 87 L 89 L 03/27/21 03/27/21 03/27/21 09:00 09:24 10:00 Temperature Heart Rate 89 Heart Rate [ 88 88 Monitoring electrodes] Respiratory 30 H 30 H Rate Blood Pressure 104/41 L 114/40 L [Left Brachial artery] Blood Pressure 88/34 L 84/33 L [Right Radial artery] O2 Saturation 90 L 91 L 03/27/21 03/27/21 11:00 11:04 Temperature Heart Rate 95 Heart Rate [ 88 Monitoring electrodes] Respiratory 30 H Rate Blood Pressure 113/41 L [Left Brachial artery] Blood Pressure 79/30 L [Right Radial artery] O2 Saturation 90 L Oxygen O2 Source Mechanical ventilator Oxygen Flow Rate 2 I&O (Last 24 Hrs): Intake and Output Totals x24h 03/25/21 03/26/21 03/27/21 23:59 23:59 23:59 Intake Total 3364.270 5467.208 3156.486 Output Total 913 220 723 Balance 2451.270 5247.208 2433.486 General: Other (sedated on the vent) HEENT: Mucous membr. moist/pink Neuro: Other (sedated) Cardiovascular: Regular rate Respiratory: Other (on the vent, clear ant) Abdomen: Soft Extremities: Other (Trace pretibial edema) - Results Results: Laboratory Results WBC 30.3 x10^3/uL (4.8-10.8) H 03/27/21 04:52 RBC 3.73 10^6/uL (4.20-5.40) L 03/27/21 04:52 Hgb 10.0 g/dL (12.0-16.0) L 03/27/21 04:52 Hct 33.2 % (37.0-47.0) L 03/27/21 04:52 MCV 89.0 fL (81.0-99.0) 03/27/21 04:52 MCH 26.8 pg (27.0-31.0) L 03/27/21 04:52 MCHC 30.1 g/dL (32.0-36.0) L 03/27/21 04:52 RDW 16.6 % (12.0-15.0) H 03/27/21 04:52 Plt Count 218 10^3/uL (130-450) 03/27/21 04:52 MPV 11.4 fL (7.9-10.8) H 03/27/21 04:52 Neut # (Auto) Not Reportable 03/27/21 04:52 Lymph # (Auto) Not Reportable 03/27/21 04:52 Kern # (Auto) Not Reportable 03/27/21 04:52 Eos # (Auto) Not Reportable 03/27/21 04:52 Baso # (Auto) Not Reportable 03/27/21 04:52 Absolute Nucleated RBC Not Reportable 03/27/21 04:52 Total Counted 100 03/27/21 04:52 Band Neuts % (Manual) 2 % (0-10) 03/27/21 04:52 Abnorm Lymph % (Manual) 0 % 03/27/21 04:52 Nucleated RBC % Not Reportable 03/27/21 04:52 Neutrophils # (Manual) 29.4 10^3/uL (1.5-6.6) H 03/27/21 04:52 Lymphocytes # (Manual) 0.9 10^3/uL (1.5-3.5) L 03/27/21 04:52 Monocytes # (Manual) 0.0 10^3/uL (0.0-1.0) 03/27/21 04:52 Eosinophils # (Manual) 0.0 10^3/uL (0-0.7) 03/27/21 04:52 Basophils # (Manual) 0.0 10^3/uL (0-0.1) 03/27/21 04:52 Differential Comment MANUAL DIFFERENTIAL 03/27/21 04:52 WBC Morphology NORMAL APPEARANCE (NORMAL) 03/27/21 04:52 Platelet Estimate NORMAL (130-450,000) (NORMAL) 03/27/21 04:52 Platelet Morphology NORMAL APPEARANCE (NORMAL) 03/27/21 04:52 RBC Morph Micro Appear NORMAL APPEARANCE (NORMAL) 03/27/21 04:52 Bld Gas Analysis Time 0534 03/27/21 05:28 Sample Site A-LINE 03/27/21 05:28 ABG pH 7.17 (7.35-7.45) L* 03/27/21 05:28 ABG pCO2 66 mmHg (34-45) H* 03/27/21 05:28 ABG pO2 55 mmHg (80-100) L* 03/27/21 05:28 ABG HCO3 23.4 mmol/L (22.0-26.0) 03/27/21 05:28 ABG Total CO2 25.4 MMOL/L (21.0-29.0) 03/27/21 05:28 ABG O2 Saturation 86 % (94-98) L* 03/27/21 05:28 ABG Base Excess -5.8 mmol/L (-2.0-3.0) L 03/27/21 05:28 Shalom Test POSITIVE 03/27/21 05:28 VBG pH 7.270 (7.31-7.41) L 03/25/21 11:20 Ionized Calcium 1.19 mmol/L (1.15-1.33) 03/25/21 11:20 Respiration Rate 30 b/min 03/27/21 05:28 O2 Delivery Device VENTILATOR 03/27/21 05:28 O2 Liters/Min 55.00 LPM 03/19/21 09:28 Vent Mode ASSIST/CONTROL 03/27/21 05:28 FiO2 95.00 03/27/21 05:28 Tidal Volume 400 mL 03/27/21 05:28 PEEP 12 cmH2O 03/27/21 05:28 Pressure Support Vent 5 cmH2O 03/22/21 12:00 EPAP 10 cmH2O 03/22/21 12:00 IPAP 15 cmH2O 03/22/21 12:00 Sodium 141 mmol/L (135-145) 03/27/21 04:52 Potassium 5.7 mmol/L (3.5-5.0) H 03/27/21 04:52 Chloride 105 mmol/L (101-111) 03/27/21 04:52 Carbon Dioxide 25 mmol/L (21-32) 03/27/21 04:52 Anion Gap 11.0 (6-13) 03/27/21 04:52 BUN 113 mg/dL (6-20) H* 03/27/21 04:52 Creatinine 2.7 mg/dL (0.4-1.0) H 03/27/21 04:52 Estimated GFR (MDRD) 17 (>89) L 03/27/21 04:52 Glucose 228 mg/dL (70-100) H 03/27/21 04:52 Lactic Acid 1.8 mmol/L (0.5-2.2) 03/26/21 11:50 Calcium 8.4 mg/dL (8.5-10.3) L 03/27/21 04:52 Phosphorus 5.9 mg/dL (2.5-4.6) H 03/26/21 05:54 Magnesium 3.1 mg/dL (1.7-2.8) H 03/26/21 05:54 Total Bilirubin 0.5 mg/dL (0.2-1.0) 03/27/21 04:52 Direct Bilirubin 0.2 mg/dL (0.1-0.5) 03/18/21 08:05 AST 36 IU/L (10-42) 03/27/21 04:52 ALT 41 IU/L (10-60) 03/27/21 04:52 Alkaline Phosphatase 88 IU/L (42-121) 03/27/21 04:52 Troponin I High Sens 9.7 ng/L (2.3-14.8) 03/17/21 15:29 B-Natriuretic Peptide 142 pg/mL (5-100) H 03/27/21 04:52 Total Protein 5.3 g/dL (6.7-8.2) L 03/27/21 04:52 Albumin 1.7 g/dL (3.2-5.5) L 03/27/21 04:52 Globulin 3.6 g/dL (2.1-4.2) 03/27/21 04:52 Albumin/Globulin Ratio 0.5 (1.0-2.2) L 03/27/21 04:52 Prealbumin 11 mg/dL (18-45) L 03/26/21 05:54 Triglycerides 162 mg/dL (-149) H 03/24/21 05:50 Lipase 27 U/L (22-51) 03/14/21 12:03 TSH 0.18 uIU/mL (0.34-5.60) L 03/26/21 05:54 Nasal Adenovirus (PCR) NOT DETECTED 03/14/21 11:53 Nasal B. parapertussis DNA (PCR) NOT DETECTED 03/14/21 11:53 Nasal Coronavir 229E PCR NOT DETECTED 03/14/21 11:53 Nasal Coronavir HKU1 PCR NOT DETECTED 03/14/21 11:53 Nasal Coronavir NL63 PCR NOT DETECTED 03/14/21 11:53 Nasal Coronavir OC43 PCR NOT DETECTED 03/14/21 11:53 Nasal Enterovir/Rhinovir PCR NOT DETECTED 03/14/21 11:53 Nasal Influenza B PCR NOT DETECTED 03/14/21 11:53 Nasal Influenza A PCR NOT DETECTED 03/14/21 11:53 Nasal Parainfluen 1 PCR NOT DETECTED 03/14/21 11:53 Nasal Parainfluen 2 PCR NOT DETECTED 03/14/21 11:53 Nasal Parainfluen 3 PCR NOT DETECTED 03/14/21 11:53 Nasal Parainfluen 4 PCR NOT DETECTED 03/14/21 11:53 Nasal RSV (PCR) NOT DETECTED 03/14/21 11:53 Nasal Screen MRSA (PCR) NEGATIVE (NEGATIVE) 03/16/21 17:00 Nasal B.pertussis DNA PCR NOT DETECTED 03/14/21 11:53 Nasal C.pneumoniae (PCR) NOT DETECTED 03/14/21 11:53 Pancho Human Metapneumo PCR NOT DETECTED 03/14/21 11:53 Nasal M.pneumoniae (PCR) NOT DETECTED 03/14/21 11:53 Nasal SARS-CoV-2 (PCR) DETECTED A 03/14/21 11:53 Stl C. diff Tox B Gene NEGATIVE (NEGATIVE) 03/26/21 14:02 Last Dose Date UNK 03/27/21 04:52 Last Dose Time UNK 03/27/21 04:52 Vancomycin Trough 14.8 ug/mL (10.0-20.0) 03/21/21 10:48 Random Vancomycin 36.9 ug/mL 03/27/21 04:52
[2021-03-27] MEDS: MIN OIL/DIMETHICON/COCONUT OIL 92 GM TUBE TOP PRN (16:00)
[2021-03-27 20:05] LABS: ABG BASE EXCESS -2.3 mmol/L (-2.0-3.0); ABG HCO3 25.5 mmol/L (22.0-26.0); ABG PH 7.25 (7.35-7.45); ABG TCO2 27.3 MMOL/L (21.0-29.0)
[2021-03-27 20:06] LABS: ABG MODE OF VENTILATION ASSIST/CONTROL; ABG RESPIRATORY RATE 30 b/min
[2021-03-27 20:12] LABS: ABG PCO2 60 mmHg (34-45); ABG PO2 53 mmHg (80-100)
[2021-03-27 20:13] LABS: ABG OXYGEN SATURATION 87 % (94-98)
[2021-03-27] MEDS: ATORVASTATIN 10 MG TABLET PO SCH (21:02)
[2021-03-28] MEDS: INSULIN REGULAR HUMAN 300 UNIT/3 ML VIAL SUBQ SCH ×4 (00:12→18:29)
[2021-03-28] MEDS: SODIUM CHLORIDE FLUSH 0.9% 10 ML SYRINGE IVP SCH ×3 (00:19→18:29)
[2021-03-28] MEDS: MIDAZOLAM DRIP 50 MG/50 ML 50 MG/50 ML BAG IV SCH ×2 (00:49→15:20)
[2021-03-28] MEDS: MIN OIL/DIMETHICON/COCONUT OIL 92 GM TUBE TOP PRN (01:00)
[2021-03-28] MEDS: PROPOFOL 1000 MG/100 ML 1,000 MG/100 ML BOTTLE IV SCH ×2 (03:41→09:29)
[2021-03-28 05:51] LABS: VANCOMYCIN,RANDOM 33.4 ug/mL
[2021-03-28 06:00] LABS: ABG HCO3 24.7 mmol/L (22.0-26.0); ABG PH 7.23 (7.35-7.45)
[2021-03-28 06:01] LABS: ABG BASE EXCESS -3.3 mmol/L (-2.0-3.0); ABG RESPIRATORY RATE 30 b/min; ABG TCO2 26.6 MMOL/L (21.0-29.0)
[2021-03-28 06:03] LABS: ABG OXYGEN SATURATION 84 % (94-98); ABG PCO2 61 mmHg (34-45); ABG PO2 53 mmHg (80-100)
[2021-03-28] MEDS: metroNIDAZOLE 500 MG/100 ML 500 MG/100 ML BAG IV SCH ×3 (06:10→22:14)
[2021-03-28] MEDS: PANTOPRAZOLE 40 MG VIAL IVP SCH (06:10)
[2021-03-28] MEDS: LIOTHYRONINE 25 MCG TABLET PO SCH (06:10)
[2021-03-28 06:20] LABS: ABG MODE OF VENTILATION ASSIST/CONTROL
[2021-03-28 06:59] LABS: MAGNESIUM 2.9 mg/dL (1.7-2.8); POTASSIUM 5.7 mmol/L (3.5-5.0)
[2021-03-28 07:17] LABS: CALCIUM, IONIZED 1.14 mmol/L (1.15-1.33); VBG PH 7.24 (7.31-7.41)
[2021-03-28 08:31] LABS: BASOPHILS % (AUTO) 0.3 %; EOSINOPHILS % (AUTO) 1.9 %; HCT - HEMATOCRIT 29.4 % (37.0-47.0); LYMPHOCYTES % (AUTO) 1.8 %; MEAN CORPUSCULAR HEMOGLOBIN 26.6 pg (27.0-31.0); MEAN CORPUSCULAR HGB CONC 30.6 g/dL (32.0-36.0); MEAN PLATELET VOLUME 11.2 fL (7.9-10.8); MONOCYTES % (AUTO) 2.5 %; NEUTROPHILS % (AUTO) 90.9 %; PLT - PLATELET COUNT 186 10^3/uL (130-450); RED BLOOD COUNT 3.38 10^6/uL (4.20-5.40); RED CELL DISTRIBUTION WIDTH 16.7 % (12.0-15.0); WHITE BLOOD COUNT 21.4 x10^3/uL (4.8-10.8)
[2021-03-28 08:38] LABS: ABNORMAL LYMPHS % (MANUAL) 0 %
[2021-03-28 08:47] LABS: CALCIUM 8.1 mg/dL (8.5-10.3); CREATININE 3.5 mg/dL (0.4-1.0); POTASSIUM 5.8 mmol/L (3.5-5.0)
[2021-03-28 09:16] LABS: BAND NEUTROPHILS % (MANUAL) 1 %; DIFFERENTIAL COMMENT MANUAL DIFFERENTIAL; EOSINOPHILS # (MANUAL) 1.1 10^3/uL (0-0.7); LYMPHOCYTES # (MANUAL) 0.4 10^3/uL (1.5-3.5); LYMPHOCYTES % (MANUAL) 2 %; MONOCYTES # (MANUAL) 0.2 10^3/uL (0.0-1.0); NEUTROPHILS # (MANUAL) 19.7 10^3/uL (1.5-6.6); PLATELET ESTIMATE, MANUAL NORMAL (130-450,000) (NORMAL); PLATELET MORPHOLOGY 1+ LARGE PLATELETS (NORMAL); RBC MORPHOLOGY (MULTIPLE) NORMAL APPEARANCE (NORMAL)
[2021-03-28] MEDS: CHOLECALCIFEROL 25 MCG TABLET PO SCH (09:17)
[2021-03-28] MEDS: ASPIRIN CHEW 81 MG TABLET PO SCH (09:17)
[2021-03-28] MEDS: ENOXAPARIN 40 MG/0.4 ML SYRINGE SUBQ SCH (09:17)
[2021-03-28] MEDS: ZINC SULFATE 220 MG CAPSULE PO SCH (09:18)
[2021-03-28] MEDS: SODIUM BICARBONATE 150 MEQ in DEXTROSE 5% 1,000 ML IV SCH ×2 (09:19→11:45)
[2021-03-28] MEDS: AZITHROMYCIN INJ 500 MG in SODIUM CHLORIDE 0.9% 250 ML IV SCH (09:19)
[2021-03-28] MEDS: CEFEPIME 2 GM in SODIUM CHLORIDE 0.9% MINIBAG 100 ML IV SCH (09:22)
[2021-03-28] MEDS: guaiFENesin 600 MG TABLET PO SCH ×2 (09:26→20:34)
[2021-03-28] MEDS: CHLORHEXIDINE GLUCONATE 15 ML UDC PO SCH ×2 (09:26→20:34)
[2021-03-28] MEDS: ASCORBIC ACID 500 MG TABLET PO SCH (09:27)
[2021-03-28] MEDS ORDERED: DEXMEDETOMIDINE 400 MCG in SODIUM CHLORIDE 0.9% 100ML 96 ML IV PRN (10:38)
[2021-03-28] MEDS ORDERED: DEXMEDETOMIDINE 400 MCG/100 ML 100 ML IV SCH (11:00)
[2021-03-28] MEDS: DEXMEDETOMIDINE 400 MCG in SODIUM CHLORIDE 0.9% 100ML 96 ML IV SCH ×2 (11:49→17:02)
[2021-03-28] MEDS ORDERED: FUROSEMIDE 40 MG/4 ML VIAL IVP ONE ×2 (12:05→14:45)
--- NOTE | 2021-03-28 12:25 | PROVIDER PROGRESS NOTE ---
Assessment/Plan - Problem List (1) Acute respiratory failure with hypoxia Assessment/Plan: She needed intubation a week ago, has been sedated with iv Versed and iv Propofol. A central line, an arterial line and ng tube were placed. Meds being given per ng. The cause is COVID pneumonia. She has finished 5 days of Remdesivir. She remains on Decadron and antibx were broadened when possibly aspiration occurred. She is getting proning daily, getting ng feeds, but stopping ng feeds when proned and 1 hr prior to proning. Continue supportive measures. Will change iv propofol to iv Precedex drip, continue gentle iv Versed. Overall prognosis remains poor. The and son were updated in person today. (2) On mechanically assisted ventilator She has an art line and is at 100% FIO2 on current vent settings, saturating 88% She is proning daily and sats improve slightly when she is proned. Continue on vent. This was discussed w/ family today. (3) Acute Oliguric Renal Failure (N17.9) Her BUN/creat continues to worsen daily and she is oliguric for 2 days. It was initially felt to be ATN from dehydration when the Echo (done 03/23/21) showed a small, underfilled LV cavity with hyperdynamic function, consistent with volume depletion). Also her BENJAMIN could be from having gotten Vanco. She has not been hypotensive but since yesterday her BP is "soft", we stopped the Amlodipine therefore. Will give a dose of Lasix 80 mg iv and if no improvement in urine output will dose with Metolazone iv plus iv Lasix. Avoid nephrotoxins, watch Vanco level Follow BMP daily or more often. I explained this worsening renal condition to the and son yesterday and today. The wants her to be considered for hemodialysis, which I started working on yesterday. I reached out to [facility] (no beds and long wait and not put on list), [facility] put her on wait list, and [facility] put her on wait list. (Both of those were re-called today and no beds yet). Today [facility] in [place] was called and she was not accepted (but put on long waiting list). Then was called and I spoke to [employer] Att[employer] Fellow (Dr Paul Sanches), and he advised we start Lasix and then the Metolazone plus Lasix and decrease all iv fluids. Will continue to work on getting her to a hospital with higher level of care. All of the and son's questions regarding transfer, new medical management, hemodialysis and even about kidney transplant, were answered to their satisfaction today. (4) Metabolic acidosis Her low pH around 7.2 persists. Etiology is likely her significant renal failure or we considered a worsening infection. We have broadened her antibiotics empirically. The wants her to be considered for hemodialysis. She is to continue to get iv bicarb in D5W drip Follow pH and BMP daily or more frequently. This significant new abnormality was discussed with the and son over the past 3 days. (5) Hyperkalemia This is consistent with her acidosis and her renal failure. Two days ago she needed Insulin 10 units, D50 amp, Kayexalate and her fluids were changed and potassium removed from maintenance fluids. (6) Pneumonia due to 2019 novel coronavirus Impression: This was the initial cause of respiratory failure as mentioned above. She has completed a course of Remdesivir. She remains on Decadron. She was intubated. We will continue in the ICU with the plan as above. (7) Aspiration pneumonia Her chest x-ray yesterday showed continued bilateral infiltrates and possible fluid. There was a concern several days ago of a ET tube cuff leak, therefore aspiration pneumonia was a likely etiology of a worsened infection. She makes no sputum IV antibiotics have been broadened: she was on cefepime and Vanco, and now we have added Flagyl and Azithromycin to cover anaerobes plus atypical bacteria. (8) Diarrhea Improving. Suspect that this was from receiving Kayexalate. The bowel movement started with a normal very large formed BM followed by more than 2 BMs that were liquidy We checked for C. difficile and it was negative. We stopped the daily bowel protocol being given per NG. (9) Hyperglycemia She had blood glu values of 238, 237, since starting iv Decadron, iv with D5, and ng tube feeds. She is getting glu fingerstick checks and ss Insulin coverage (10) Hypothyroidism Due to new PSVT several days ago, we assessed her TSH and it came back excessively low. We decreased her Cytomel dose. (11) PSVT Pt had a 14-beat run of PSVT, rate 160 several days ago, then not recurred. We assessed TSH and it came back excessively low. We decreased her Cytomel dose. (12) History of aortic valve replacement An Echocardiogram was done on 03/23/21, showing a small, underfilled LV cavity with hyperdynamic function, and normally functioning aortic valve bioprosthesis. (13) Hx of Hypertension We had continued her home antihypertensive (Amlodipine po then per ng tube), but for the last 2 days her art line shows a "soft" BP. We stopped Amlodipine. - Current Meds Current Meds: Current Medications Generic Name Dose Route Start Last Admin Trade Name Freq PRN Reason Stop Dose Admin Ascorbic Acid 500 mg 03/17/21 09:00 03/28/21 09:27 Ascorbic Acid 500 Mg Tablet PO 500 mg DAILY ANDREINA Administration Aspirin 81 mg 03/25/21 09:00 03/28/21 09:17 Aspirin Chew 81 Mg Tablet PO 81 mg DAILY ANDREINA Administration Atorvastatin Calcium 20 mg 03/16/21 21:00 03/27/21 21:02 Atorvastatin 10 Mg Tablet PO 20 mg QPM ANDREINA Administration Chlorhexidine Gluconate 15 ml 03/25/21 09:00 03/28/21 09:26 Chlorhexidine Gluconate 15 Ml Udc PO 15 ml BID ANDREINA Administration Cholecalciferol 50 mcg 03/16/21 16:00 03/28/21 09:17 Cholecalciferol 25 Mcg Tablet PO 50 mcg DAILY ANDREINA Administration Guaifenesin 600 mg 03/15/21 12:00 03/28/21 09:26 Guaifenesin 600 Mg Tablet PO Not Given BID ANDREINA Cefepime HCl 2 gm/ Sodium 100 mls @ 200 mls/hr 03/19/21 10:00 03/28/21 09:55 Chloride IV Infused BID ANDREINA Infusion Sodium Chloride 500 mls @ 10 mls/hr 03/25/21 11:09 03/26/21 07:55 Normal Saline 0.9% IV Infused Q24H PRN Infusion TKO RATE Metronidazole 500 mg in 100 mls @ 100 mls/hr 03/26/21 06:00 03/28/21 07:14 Flagyl 500 Mg/100 Ml IV Infused Q8H ANDREINA Infusion Midazolam HCl 50 mg in 50 mls @ 3.418 mls/hr 03/26/21 18:00 03/28/21 00:49 Versed Drip 50 Mg/50 Ml IV 0.05 mg/kg/hr .[id number] ANDREINA 4.273 mls/hr Administration Protocol 0.04 MG/KG/HR Sodium Bicarbonate 150 meq/ 1,150 mls @ 40 mls/hr 03/28/21 10:33 03/28/21 11:45 Dextrose IV 40 mls/hr .[id number] ANDREINA Administration Dexmedetomidine HCl 400 mcg/ 100 mls @ 5.075 mls/hr 03/28/21 10:41 03/28/21 11:49 Sodium Chloride IV 0.4 mcg/kg/hr .[id number] ANDREINA 10.15 mls/hr Administration Protocol 0.2 MCG/KG/HR Insulin Human Regular 1 - 5 unit 03/24/21 10:00 03/28/21 06:10 Insulin Regular Human 300 Unit/3 Ml Vial SUBQ 2 unit Q6HR ANDREINA Administration Protocol Liothyronine Sodium 12.5 mcg 03/27/21 07:00 03/28/21 06:10 Liothyronine 25 Mcg Tablet PO 12.5 mcg QDAC ANDREINA Administration Mineral Oil 1 applic 03/25/21 18:09 03/28/21 01:00 Min Oil/Dimethicon/Coconut Oil 92 Gm Tube TOP 1 applic PRN PRN Administration Skin Care Multi-Ingredient Ointment 1 applic 03/26/21 14:24 03/26/21 14:40 Zinc Oxide 20% Oint 30 Gm Tube TOP 1 applic PRN PRN Administration Skin Care Ondansetron HCl 4 mg 03/14/21 16:53 03/16/21 08:18 Ondansetron 4 Mg/2 Ml Vial IVP 4 mg Q6HR PRN Administration Nausea / Vomiting Pantoprazole Sodium 40 mg 03/23/21 07:00 03/28/21 06:10 Pantoprazole 40 Mg Vial IVP 40 mg QDAC ANDREINA Administration Sodium Chloride 10 ml 03/14/21 17:00 03/28/21 09:26 Sodium Chloride Flush 0.9% 10 Ml Syringe IVP 10 ml 0100,0900,1700 ANDREINA Administration Sodium Chloride 20 ml 03/26/21 00:10 03/26/21 06:00 Sodium Chloride Flush 0.9% 10 Ml Syringe IVP 20 ml PRN PRN Administration After Blood Draw Zinc Sulfate 220 mg 03/17/21 09:00 03/28/21 09:18 Zinc Sulfate 220 Mg Capsule PO 220 mg DAILY ANDREINA Administration - Lab Result Fish Bone Diagrams: 03/28/21 08:02 03/28/21 08:02 - Additional Planning My Orders: My Active Orders 03/28/21 05:55 ABG - ARTERIAL BLOOD GAS [BG] Stat 03/28/21 06:17 RT - Obtain Arterial Specimen [RC] .ONCE 03/28/21 10:33 Dextrose 5% [D5w] 1,000 ml Sodium Bicarbonate 150 meq IV 40 mls/hr 03/28/21 10:41 Sodium Chloride 0.9% 100Ml [Normal Saline 0.9% 100Ml] 96 ml Dexmedetomidine [Precedex] 400 mcg IV 0.2 mcg/kg/hr 03/28/21 10:49 NPO except Meds [DIET] 03/29/21 05:00 ABG - ARTERIAL BLOOD GAS [BG] DAILYLAB CBC - COMP BLD CT W/AUTO DIFF [HEME] DAILYLAB COMPREHENSIVE METABOLIC PANEL [CHEM] Timed MAGNESIUM [CHEM] Timed PHOSPHORUS [CHEM] Timed PREALBUMIN [CHEM] Timed 03/29/21 09:00 Enoxaparin [Lovenox] 100 mg SUBQ DAILY 03/30/21 05:00 ABG - ARTERIAL BLOOD GAS [BG] DAILYLAB BMP - BASIC METABOLIC PANEL [CHEM] DAILYLAB CBC - COMP BLD CT W/AUTO DIFF [HEME] DAILYLAB 03/31/21 05:00 BMP - BASIC METABOLIC PANEL [CHEM] DAILYLAB CBC - COMP BLD CT W/AUTO DIFF [HEME] DAILYLAB 04/01/21 05:00 BMP - BASIC METABOLIC PANEL [CHEM] DAILYLAB CBC - COMP BLD CT W/AUTO DIFF [HEME] DAILYLAB 04/02/21 05:00 BMP - BASIC METABOLIC PANEL [CHEM] DAILYLAB CBC - COMP BLD CT W/AUTO DIFF [HEME] DAILYLAB Subjective - Subjective Nursing Reports: Other (Remains on the vent, on IV sedatives, getting NG feeds with insignificant residual, is starting to get edema) Objective Vital Signs: Vital Signs - 24 hr 03/27/21 03/27/21 03/27/21 13:00 13:20 14:00 Temperature 36.6 C Heart Rate 88 Heart Rate [ 72 86 Monitoring electrodes] Respiratory 30 H 30 H Rate Blood Pressure 127/53 L 129/38 L [Left Brachial artery] Blood Pressure 95/32 L 95/33 L [Right Radial artery] O2 Saturation 93 93 03/27/21 03/27/21 03/27/21 15:00 15:27 16:00 Temperature Heart Rate 85 Heart Rate [ 86 86 Monitoring electrodes] Respiratory 30 H 30 H Rate Blood Pressure 132/43 H 127/45 L [Left Brachial artery] Blood Pressure 104/35 L 106/36 L [Right Radial artery] O2 Saturation 95 95 03/27/21 03/27/21 03/27/21 17:00 18:00 19:00 Temperature 36.4 C L 36.6 C Heart Rate Heart Rate [ 87 84 82 Monitoring electrodes] Respiratory 30 H 30 H 31 H Rate Blood Pressure 132/47 H 120/54 L 121/49 L [Left Brachial artery] Blood Pressure 113/37 L 107/40 L 100/36 L [Right Radial artery] O2 Saturation 96 91 L 91 L 03/27/21 03/27/21 03/27/21 19:30 20:00 21:00 Temperature 36.6 C Heart Rate 83 Heart Rate [ 83 83 Monitoring electrodes] Respiratory 30 H 30 H Rate Blood Pressure 132/51 H 128/48 L [Left Brachial artery] Blood Pressure 98/41 L 100/40 L [Right Radial artery] O2 Saturation 94 96 03/27/21 03/27/21 03/27/21 21:45 22:00 23:00 Temperature Heart Rate 84 Heart Rate [ 84 85 Monitoring electrodes] Respiratory 30 H 30 H Rate Blood Pressure 133/43 H 124/48 L [Left Brachial artery] Blood Pressure 98/38 L 96/37 L [Right Radial artery] O2 Saturation 93 93 03/27/21 03/28/21 03/28/21 23:25 00:00 01:00 Temperature Heart Rate 86 Heart Rate [ 86 87 Monitoring electrodes] Respiratory 30 H 31 H Rate Blood Pressure 129/46 L 113/68 [Left Brachial artery] Blood Pressure 96/37 L 89/35 L [Right Radial artery] O2 Saturation 92 89 L 03/28/21 03/28/21 03/28/21 01:20 02:00 03:00 Temperature Heart Rate 89 Heart Rate [ 89 89 Monitoring electrodes] Respiratory 30 H 31 H Rate Blood Pressure 124/41 L 133/46 H [Left Brachial artery] Blood Pressure 87/32 L 81/32 L [Right Radial artery] O2 Saturation 87 L 89 L 03/28/21 03/28/21 03/28/21 03:40 04:00 05:00 Temperature 36.6 C Heart Rate 89 Heart Rate [ 90 89 Monitoring electrodes] Respiratory 31 H 31 H Rate Blood Pressure 118/42 L 114/44 L [Left Brachial artery] Blood Pressure 85/34 L 88/39 L [Right Radial artery] O2 Saturation 88 L 86 L 03/28/21 03/28/21 03/28/21 05:50 06:00 06:58 Temperature Heart Rate 89 90 Heart Rate [ 90 Monitoring electrodes] Respiratory 30 H Rate Blood Pressure 116/49 L [Left Brachial artery] Blood Pressure [Right Radial artery] O2 Saturation 88 L 03/28/21 03/28/21 03/28/21 07:00 07:31 08:49 Temperature 36.6 C 36.6 C Heart Rate Heart Rate [ 90 90 89 Monitoring electrodes] Respiratory 31 H 31 H 32 H Rate Blood Pressure 120/40 L 120/40 L 115/47 L [Left Brachial artery] Blood Pressure 92/37 L 91/37 L 99/43 L [Right Radial artery] O2 Saturation 87 L 88 L 88 L 03/28/21 03/28/21 03/28/21 10:00 10:06 11:00 Temperature Heart Rate 89 Heart Rate [ 89 88 Monitoring electrodes] Respiratory 30 H 32 H Rate Blood Pressure 114/64 105/40 L [Left Brachial artery] Blood Pressure 97/40 L 102/46 L [Right Radial artery] O2 Saturation 88 L 83 L 03/28/21 12:00 Temperature Heart Rate Heart Rate [ 90 Monitoring electrodes] Respiratory 32 H Rate Blood Pressure 135/50 H [Left Brachial artery] Blood Pressure 104/46 L [Right Radial artery] O2 Saturation 84 L Oxygen O2 Source Mechanical ventilator Oxygen Flow Rate 2 I&O (Last 24 Hrs): Intake and Output Totals x24h 03/26/21 03/27/21 03/28/21 23:59 23:59 23:59 Intake Total 5467.208 4570.130 2591.091 Output Total 220 768 85 Balance 5247.208 3802.130 2506.091 General: Other ((vivit done remotely) She is sedated, currently proned) HEENT: Mucous membr. moist/pink Neuro: Other (Sdated) Cardiovascular: Regular rate Respiratory: No respiratory distress (on vent) Abdomen: Soft Extremities: Other (1+ edema) - Results Results: Laboratory Results WBC 21.4 x10^3/uL (4.8-10.8) H 03/28/21 08:02 RBC 3.38 10^6/uL (4.20-5.40) L 03/28/21 08:02 Hgb 9.0 g/dL (12.0-16.0) L 03/28/21 08:02 Hct 29.4 % (37.0-47.0) L 03/28/21 08:02 MCV 87.0 fL (81.0-99.0) 03/28/21 08:02 MCH 26.6 pg (27.0-31.0) L 03/28/21 08:02 MCHC 30.6 g/dL (32.0-36.0) L 03/28/21 08:02 RDW 16.7 % (12.0-15.0) H 03/28/21 08:02 Plt Count 186 10^3/uL (130-450) 03/28/21 08:02 MPV 11.2 fL (7.9-10.8) H 03/28/21 08:02 Neut # (Auto) Not Reportable 03/28/21 08:02 Lymph # (Auto) Not Reportable 03/28/21 08:02 Calhoun # (Auto) Not Reportable 03/28/21 08:02 Eos # (Auto) Not Reportable 03/28/21 08:02 Baso # (Auto) Not Reportable 03/28/21 08:02 Absolute Nucleated RBC Not Reportable 03/28/21 08:02 Total Counted 100 03/28/21 08:02 Band Neuts % (Manual) 1 % (0-10) 03/28/21 08:02 Abnorm Lymph % (Manual) 0 % 03/28/21 08:02 Nucleated RBC % Not Reportable 03/28/21 08:02 Neutrophils # (Manual) 19.7 10^3/uL (1.5-6.6) H 03/28/21 08:02 Lymphocytes # (Manual) 0.4 10^3/uL (1.5-3.5) L 03/28/21 08:02 Monocytes # (Manual) 0.2 10^3/uL (0.0-1.0) 03/28/21 08:02 Eosinophils # (Manual) 1.1 10^3/uL (0-0.7) H 03/28/21 08:02 Basophils # (Manual) 0.0 10^3/uL (0-0.1) 03/28/21 08:02 Differential Comment MANUAL DIFFERENTIAL 03/28/21 08:02 WBC Morphology NORMAL APPEARANCE (NORMAL) 03/27/21 04:52 Platelet Estimate NORMAL (130-450,000) (NORMAL) 03/28/21 08:02 Platelet Morphology 1+ LARGE PLATELETS (NORMAL) 03/28/21 08:02 RBC Morph Micro Appear NORMAL APPEARANCE (NORMAL) 03/28/21 08:02 Bld Gas Analysis Time 0559 03/28/21 05:54 Sample Site A-LINE 03/28/21 05:54 ABG pH 7.23 (7.35-7.45) L 03/28/21 05:54 ABG pCO2 61 mmHg (34-45) H* 03/28/21 05:54 ABG pO2 53 mmHg (80-100) L* 03/28/21 05:54 ABG HCO3 24.7 mmol/L (22.0-26.0) 03/28/21 05:54 ABG Total CO2 26.6 MMOL/L (21.0-29.0) 03/28/21 05:54 ABG O2 Saturation 84 % (94-98) L* 03/28/21 05:54 ABG Base Excess -3.3 mmol/L (-2.0-3.0) L 03/28/21 05:54 Shalom Test NOT APPLICABLE 03/28/21 05:54 VBG pH 7.240 (7.31-7.41) L 03/28/21 06:55 Ionized Calcium 1.14 mmol/L (1.15-1.33) L 03/28/21 06:55 Respiration Rate 30 b/min 03/28/21 05:54 O2 Delivery Device VENTILATOR 03/28/21 05:54 O2 Liters/Min 55.00 LPM 03/19/21 09:28 Vent Mode ASSIST/CONTROL 03/28/21 05:54 FiO2 100.00 03/28/21 05:54 Tidal Volume 420 mL 03/28/21 05:54 PEEP 14 cmH2O 03/28/21 05:54 Pressure Support Vent 5 cmH2O 03/22/21 12:00 EPAP 10 cmH2O 03/22/21 12:00 IPAP 15 cmH2O 03/22/21 12:00 Sodium 137 mmol/L (135-145) 03/28/21 08:02 Potassium 5.8 mmol/L (3.5-5.0) H 03/28/21 08:02 Chloride 98 mmol/L (101-111) L 03/28/21 08:02 Carbon Dioxide 27 mmol/L (21-32) 03/28/21 08:02 Anion Gap 12.0 (6-13) 03/28/21 08:02 BUN 131 mg/dL (6-20) H* 03/28/21 08:02 Creatinine 3.5 mg/dL (0.4-1.0) H 03/28/21 08:02 Estimated GFR (MDRD) 13 (>89) L 03/28/21 08:02 Glucose 203 mg/dL (70-100) H 03/28/21 08:02 Lactic Acid 1.8 mmol/L (0.5-2.2) 03/26/21 11:50 Calcium 8.1 mg/dL (8.5-10.3) L 03/28/21 08:02 Phosphorus 8.0 mg/dL (2.5-4.6) H 03/28/21 04:40 Magnesium 2.9 mg/dL (1.7-2.8) H 03/28/21 04:40 Total Bilirubin 0.5 mg/dL (0.2-1.0) 03/27/21 04:52 Direct Bilirubin 0.2 mg/dL (0.1-0.5) 03/18/21 08:05 AST 36 IU/L (10-42) 03/27/21 04:52 ALT 41 IU/L (10-60) 03/27/21 04:52 Alkaline Phosphatase 88 IU/L (42-121) 03/27/21 04:52 Troponin I High Sens 9.7 ng/L (2.3-14.8) 03/17/21 15:29 B-Natriuretic Peptide 142 pg/mL (5-100) H 03/27/21 04:52 Total Protein 5.3 g/dL (6.7-8.2) L 03/27/21 04:52 Albumin 1.7 g/dL (3.2-5.5) L 03/27/21 04:52 Globulin 3.6 g/dL (2.1-4.2) 03/27/21 04:52 Albumin/Globulin Ratio 0.5 (1.0-2.2) L 03/27/21 04:52 Prealbumin 11 mg/dL (18-45) L 03/26/21 05:54 Triglycerides 162 mg/dL (-149) H 03/24/21 05:50 Lipase 27 U/L (22-51) 03/14/21 12:03 TSH 0.18 uIU/mL (0.34-5.60) L 03/26/21 05:54 Nasal Adenovirus (PCR) NOT DETECTED 03/14/21 11:53 Nasal B. parapertussis DNA (PCR) NOT DETECTED 03/14/21 11:53 Nasal Coronavir 229E PCR NOT DETECTED 03/14/21 11:53 Nasal Coronavir HKU1 PCR NOT DETECTED 03/14/21 11:53 Nasal Coronavir NL63 PCR NOT DETECTED 03/14/21 11:53 Nasal Coronavir OC43 PCR NOT DETECTED 03/14/21 11:53 Nasal Enterovir/Rhinovir PCR NOT DETECTED 03/14/21 11:53 Nasal Influenza B PCR NOT DETECTED 03/14/21 11:53 Nasal Influenza A PCR NOT DETECTED 03/14/21 11:53 Nasal Parainfluen 1 PCR NOT DETECTED 03/14/21 11:53 Nasal Parainfluen 2 PCR NOT DETECTED 03/14/21 11:53 Nasal Parainfluen 3 PCR NOT DETECTED 03/14/21 11:53 Nasal Parainfluen 4 PCR NOT DETECTED 03/14/21 11:53 Nasal RSV (PCR) NOT DETECTED 03/14/21 11:53 Nasal Screen MRSA (PCR) NEGATIVE (NEGATIVE) 03/16/21 17:00 Nasal B.pertussis DNA PCR NOT DETECTED 03/14/21 11:53 Nasal C.pneumoniae (PCR) NOT DETECTED 03/14/21 11:53 Pancho Human Metapneumo PCR NOT DETECTED 03/14/21 11:53 Nasal M.pneumoniae (PCR) NOT DETECTED 03/14/21 11:53 Nasal SARS-CoV-2 (PCR) DETECTED A 03/14/21 11:53 Stl C. diff Tox B Gene NEGATIVE (NEGATIVE) 03/26/21 14:02 Last Dose Date UNKNOWN 03/28/21 05:00 Last Dose Time UNKNOWN 03/28/21 05:00 Vancomycin Trough 14.8 ug/mL (10.0-20.0) 03/21/21 10:48 Random Vancomycin 33.4 ug/mL 03/28/21 05:00
[2021-03-28] MEDS ORDERED: CEFEPIME 2 GM in SODIUM CHLORIDE 0.9% MINIBAG 100 ML IV SCH (13:14)
[2021-03-28] MEDS ORDERED: metOLazone 2.5 MG TABLET PO ONE (14:08)
[2021-03-28] MEDS: ATORVASTATIN 10 MG TABLET PO SCH (20:33)
[2021-03-29] MEDS: INSULIN REGULAR HUMAN 300 UNIT/3 ML VIAL SUBQ SCH ×4 (00:08→18:27)
[2021-03-29] MEDS: SODIUM CHLORIDE FLUSH 0.9% 10 ML SYRINGE IVP SCH ×3 (00:10→18:30)
[2021-03-29] MEDS: MIDAZOLAM DRIP 50 MG/50 ML 50 MG/50 ML BAG IV SCH ×3 (00:48→21:14)
[2021-03-29] MEDS: DEXMEDETOMIDINE 400 MCG in SODIUM CHLORIDE 0.9% 100ML 96 ML IV SCH ×3 (01:28→20:57)
[2021-03-29 03:20] LABS: ABG BASE EXCESS -4.1 mmol/L (-2.0-3.0); ABG HCO3 24.3 mmol/L (22.0-26.0); ABG PH 7.21 (7.35-7.45); ABG TCO2 26.2 MMOL/L (21.0-29.0)
[2021-03-29 03:21] LABS: ABG MODE OF VENTILATION ASSIST/CONTROL; ABG RESPIRATORY RATE 30 b/min
[2021-03-29 03:22] LABS: ABG OXYGEN SATURATION 80 % (94-98); ABG PCO2 62 mmHg (34-45); ABG PO2 49 mmHg (80-100)
[2021-03-29 05:21] LABS: BASOPHILS % (AUTO) 0.3 %; EOSINOPHILS % (AUTO) 1.5 %; HGB - HEMOGLOBIN 9.3 g/dL (12.0-16.0); MEAN CORPUSCULAR HEMOGLOBIN 26.7 pg (27.0-31.0); MEAN CORPUSCULAR VOLUME 86.2 fL (81.0-99.0); MEAN PLATELET VOLUME 11.3 fL (7.9-10.8); MONOCYTES % (AUTO) 3.1 %; NEUTROPHILS % (AUTO) 88.7 %; PLT - PLATELET COUNT 236 10^3/uL (130-450); RED BLOOD COUNT 3.48 10^6/uL (4.20-5.40); RED CELL DISTRIBUTION WIDTH 16.8 % (12.0-15.0); WHITE BLOOD COUNT 23.3 x10^3/uL (4.8-10.8)
[2021-03-29 05:23] LABS: ABNORMAL LYMPHS % (MANUAL) 0 %
[2021-03-29 05:26] LABS: VANCOMYCIN,RANDOM 30.8 ug/mL
[2021-03-29 05:35] LABS: ALBUMIN 1.5 g/dL (3.2-5.5); ALBUMIN/GLOBULIN RATIO 0.4 (1.0-2.2); BILIRUBIN,TOTAL 0.8 mg/dL (0.2-1.0); CALCIUM 8.4 mg/dL (8.5-10.3); CREATININE 3.9 mg/dL (0.4-1.0); PHOSPHORUS 9.3 mg/dL (2.5-4.6); TOTAL PROTEIN 5.1 g/dL (6.7-8.2)
[2021-03-29 05:40] LABS: BAND NEUTROPHILS % (MANUAL) 3 %; DIFFERENTIAL COMMENT MANUAL DIFFERENTIAL; EOSINOPHILS # (MANUAL) 0.2 10^3/uL (0-0.7); LYMPHOCYTES # (MANUAL) 0.5 10^3/uL (1.5-3.5); LYMPHOCYTES % (MANUAL) 2 %; MYELOCYTES % (MANUAL) 2 %; NEUTROPHILS # (MANUAL) 22.1 10^3/uL (1.5-6.6); PLATELET ESTIMATE, MANUAL NORMAL (130-450,000) (NORMAL); PLATELET MORPHOLOGY NORMAL APPEARANCE (NORMAL); RBC MORPHOLOGY (MULTIPLE) NORMAL APPEARANCE (NORMAL); WBC MORPHOLOGY (MULTIPLE) NORMAL APPEARANCE (NORMAL)
[2021-03-29 05:45] LABS: POTASSIUM 6.6 mmol/L (3.5-5.0)
[2021-03-29] MEDS ORDERED: DEXTROSE 50% ABBOJECT 25 GM/50 ML SYRINGE IVP ONE ×3 (06:17→21:40)
[2021-03-29] MEDS ORDERED: INSULIN REGULAR HUMAN 300 UNIT/3 ML VIAL IVP ONE ×3 (06:17→21:40)
[2021-03-29] MEDS: metroNIDAZOLE 500 MG/100 ML 500 MG/100 ML BAG IV SCH ×3 (06:30→21:13)
[2021-03-29] MEDS: LIOTHYRONINE 25 MCG TABLET PO SCH (06:33)
[2021-03-29] MEDS: PANTOPRAZOLE 40 MG VIAL IVP SCH (06:33)
[2021-03-29] MEDS: guaiFENesin 600 MG TABLET PO SCH ×2 (08:23→20:57)
[2021-03-29] MEDS: CHOLECALCIFEROL 25 MCG TABLET PO SCH (08:23)
[2021-03-29] MEDS: CHLORHEXIDINE GLUCONATE 15 ML UDC PO SCH ×2 (08:23→20:57)
[2021-03-29] MEDS: ASPIRIN CHEW 81 MG TABLET PO SCH (08:23)
[2021-03-29] MEDS ORDERED: metOLazone 2.5 MG TABLET PO SCH (09:00)
[2021-03-29] MEDS ORDERED: ENOXAPARIN 100 MG/ML SYRINGE SUBQ SCH (09:00)
[2021-03-29] MEDS ORDERED: FUROSEMIDE 40 MG/4 ML VIAL IVP SCH (09:30)
[2021-03-29] MEDS: SODIUM BICARBONATE 150 MEQ in DEXTROSE 5% 1,000 ML IV SCH (11:18)
--- NOTE | 2021-03-29 13:29 | PROVIDER PROGRESS NOTE ---
Subjective - Prog Note Date Prog Note Date: 03/29/21 Prog Note Time: 13:40 - Subjective Pt reports feeling: Worse Subjective: she is intubated, on vent, and was started on levophed overnight due to low BP. She is starting to "guppy" breath around the ET tube. Current Medications - Current Medications Current Medications: Active Medications Acetaminophen (Acetaminophen 325 Mg Tablet) 650 mg PO Q4HR PRN PRN Reason: Pain or Fever > 38C (100.4F) Aspirin (Aspirin Chew 81 Mg Tablet) 81 mg PO DAILY [facility] Last Admin: 03/29/21 08:23 Dose: 81 mg Documented by: Atorvastatin Calcium (Atorvastatin 10 Mg Tablet) 20 mg PO QPM [facility] Last Admin: 03/28/21 20:33 Dose: 20 mg Documented by: Chlorhexidine Gluconate (Chlorhexidine Gluconate 15 Ml Udc) 15 ml PO BID [facility] Last Admin: 03/29/21 08:23 Dose: 15 ml Documented by: Cholecalciferol (Cholecalciferol 25 Mcg Tablet) 50 mcg PO DAILY [facility] Last Admin: 03/29/21 08:23 Dose: 50 mcg Documented by: Enoxaparin Sodium (Enoxaparin 100 Mg/Ml Syringe) 100 mg SUBQ DAILY [facility] Last Admin: 03/29/21 08:22 Dose: 100 mg Documented by: Furosemide (Furosemide 40 Mg/4 Ml Vial) 80 mg IVP 0930 [facility] Last Admin: 03/29/21 10:23 Dose: 80 mg Documented by: Guaifenesin (Guaifenesin 600 Mg Tablet) 600 mg PO BID [facility] Last Admin: 03/29/21 08:23 Dose: Not Given Documented by: Sodium Chloride (Normal Saline 0.9%) 500 mls @ 10 mls/hr IV Q24H PRN PRN Reason: TKO RATE Last Infusion: 03/26/21 07:55 Dose: Infused Documented by: Metronidazole (Flagyl 500 Mg/100 Ml) 500 mg in 100 mls @ 100 mls/hr IV Q8H [facility] Last Infusion: 03/29/21 10:28 Dose: Infused Documented by: Midazolam HCl (Versed Drip 50 Mg/50 Ml) 50 mg in 50 mls @ 3.418 mls/hr IV .[id number] [facility]; Protocol Last Admin: 03/29/21 11:24 Dose: 0.06 mg/kg/hr, 5.127 mls/hr Documented by: Sodium Bicarbonate 150 meq/ (Dextrose) 1,150 mls @ 40 mls/hr IV .[id number] [facility] Last Admin: 03/29/21 11:18 Dose: 40 mls/hr Documented by: Dexmedetomidine HCl 400 mcg/ (Sodium Chloride) 100 mls @ 5.075 mls/hr IV .[id number] [facility]; Protocol Last Admin: 03/29/21 10:32 Dose: 0.4 mcg/kg/hr, 10.15 mls/hr Documented by: Cefepime HCl 2 gm/ Sodium (Chloride) 100 mls @ 200 mls/hr IV DAILY [facility] Last Infusion: 03/29/21 08:55 Dose: Infused Documented by: Norepinephrine Bitartrate 8 mg (/ Dextrose) 250 mls @ 15 mls/hr IV .[id number] [facility]; Protocol Last Admin: 03/29/21 11:24 Dose: 8 mcg/min, 15 mls/hr Documented by: Insulin Human Regular (Insulin Regular Human 300 Unit/3 Ml Vial) 1 - 5 unit SUBQ Q6HR [facility]; Protocol Last Admin: 03/29/21 11:27 Dose: 1 unit Documented by: Labetalol HCl (Labetalol 20 Mg/4 Ml Syringe) 10 mg IVP Q4H PRN PRN Reason: PER PHYSICIAN ORDER Metolazone (Metolazone 2.5 Mg Tablet) 10 mg PO DAILY [facility] Last Admin: 03/29/21 08:23 Dose: 10 mg Documented by: Mineral Oil (Min Oil/Dimethicon/Coconut Oil 92 Gm Tube) 1 applic TOP PRN PRN PRN Reason: Skin Care Last Admin: 03/28/21 01:00 Dose: 1 applic Documented by: Multi-Ingredient Ointment (Zinc Oxide 20% Oint 30 Gm Tube) 1 applic TOP PRN PRN PRN Reason: Skin Care Last Admin: 03/26/21 14:40 Dose: 1 applic Documented by: Ondansetron HCl (Ondansetron 4 Mg/2 Ml Vial) 4 mg IVP Q6HR PRN PRN Reason: Nausea / Vomiting Last Admin: 03/16/21 08:18 Dose: 4 mg Documented by: Pantoprazole Sodium (Pantoprazole 40 Mg Vial) 40 mg IVP QDAC [facility] Last Admin: 03/29/21 06:33 Dose: 40 mg Documented by: Sodium Chloride (Sodium Chloride Flush 0.9% 10 Ml Syringe) 10 ml IVP 0100,0900,1700 [facility] Last Admin: 03/29/21 08:24 Dose: 10 ml Documented by: Sodium Chloride (Sodium Chloride Flush 0.9% 10 Ml Syringe) 20 ml IVP PRN PRN PRN Reason: After Blood Draw Last Admin: 03/26/21 06:00 Dose: 20 ml Documented by: Aspirin [Aspirin EC] 81 mg PO DAILY 03/15/21 Liothyronine [Cytomel] 25 mcg PO QDAC 03/15/21 Meloxicam [Mobic] 1 tablet PO DAILY 03/15/21 Potassium Chloride [Klor-Con 10] 10 meq PO BIDWM 03/15/21 Rosuvastatin Calcium [Crestor] 10 mg PO DAILY 03/15/21 Objective - Vital Signs/Intake & Output Reviewed Vital Signs: Yes Vital Signs: Vital Signs x48h Pulse Pulse Resp BP BP Pulse Ox 03/29/21 13:04 86 03/29/21 13:00 88 30 H 141/48 H 106/42 L 86 L 03/29/21 12:00 85 30 H 127/57 L 102/41 L 86 L 03/29/21 11:00 84 29 H 132/46 H 105/40 L 84 L 03/29/21 10:00 82 29 H 128/44 L 97/40 L 86 L 03/29/21 09:23 85 03/29/21 09:00 84 25 H 128/41 L 94/39 L 84 L 03/29/21 08:00 88 17 134/46 H 101/39 L 83 L 03/29/21 07:21 86 03/29/21 07:00 82 27 H 127/41 L 95/38 L 83 L 03/29/21 06:00 85 30 H 133/44 H 105/41 L 86 L 03/29/21 05:52 84 Intake & Output: Intake & Output 03/26/21 03/27/21 03/28/21 03/29/21 23:59 23:59 23:59 23:59 Intake Total 5467.208 4570.130 3021.602 3975.653 Output Total 220 768 305 48 Balance 5247.208 3802.130 2716.602 9307.653 - Objective General Appearance: positive: Other (in a coma, sedated. guppy breathing on vent.) ENT: positive: No signs of dehydration Neck: positive: No JVD. negative: Stiff neck Respiratory: positive: Rales, Rhonchi, Other (AC rate of 30, TV 420, Fi02 100%, PEEP 14. ABG) - Lab Results Fish Bones: 03/29/21 04:53 03/29/21 04:53 Other Labs: Lab Results x24hrs 03/29/21 03/29/21 03/29/21 Range/Units 04:53 04:53 04:53 WBC 23.3 H (4.8-10.8) x10^3/uL RBC 3.48 L (4.20-5.40) 10^6/uL Hgb 9.3 L (12.0-16.0) g/dL Hct 30.0 L (37.0-47.0) % MCV 86.2 (81.0-99.0) fL MCH 26.7 L (27.0-31.0) pg MCHC 31.0 L (32.0-36.0) g/dL RDW 16.8 H (12.0-15.0) % Plt Count 236 (130-450) 10^3/uL MPV 11.3 H (7.9-10.8) fL Neut # (Auto) Not Reportable Lymph # (Auto) Not Reportable [place] # (Auto) Not Reportable Eos # (Auto) Not Reportable Baso # (Auto) Not Reportable Absolute Nucleated RBC Not Reportable Total Counted 100 Band Neuts % (Manual) 3 (0 - 10) % Abnorm Lymph % (Manual) 0 % Myelocytes % 2 H ( - 0) % Nucleated RBC % Not Reportable Neutrophils # (Manual) 22.1 H (1.5-6.6) 10^3/uL Lymphocytes # (Manual) 0.5 L (1.5-3.5) 10^3/uL Monocytes # (Manual) 0.0 (0.0-1.0) 10^3/uL Eosinophils # (Manual) 0.2 (0-0.7) 10^3/uL Basophils # (Manual) 0.0 (0-0.1) 10^3/uL Differential Comment MANUAL DIFFERENTIAL WBC Morphology NORMAL APPEARANCE (NORMAL) Platelet Estimate NORMAL (130-450,000) (NORMAL) Platelet Morphology NORMAL APPEARANCE (NORMAL) RBC Morph Micro Appear NORMAL APPEARANCE (NORMAL) Bld Gas Analysis Time Sample Site ABG pH (7.35-7.45) ABG pCO2 (34-45) mmHg ABG pO2 (80-100) mmHg ABG HCO3 (22.0-26.0) mmol/L ABG Total CO2 (21.0-29.0) MMOL/L ABG O2 Saturation (94-98) % ABG Base Excess (-2.0-3.0) mmol/L Shalom Test Respiration Rate b/min O2 Delivery Device Vent Mode FiO2 Tidal Volume mL PEEP cmH2O Sodium 136 (135-145) mmol/L Potassium 6.6 H* (3.5-5.0) mmol/L Chloride 97 L (101-111) mmol/L Carbon Dioxide 25 (21-32) mmol/L Anion Gap 14.0 H (6-13) BUN 152 H* (6-20) mg/dL Creatinine 3.9 H (0.4-1.0) mg/dL Estimated GFR (MDRD) 11 L (>89) Glucose 182 H (70-100) mg/dL Calcium 8.4 L (8.5-10.3) mg/dL Phosphorus 9.3 H (2.5-4.6) mg/dL Magnesium 3.0 H (1.7-2.8) mg/dL Total Bilirubin 0.8 (0.2-1.0) mg/dL AST 45 H (10-42) IU/L ALT 36 (10-60) IU/L Alkaline Phosphatase 105 (42-121) IU/L Total Protein 5.1 L (6.7-8.2) g/dL Albumin 1.5 L (3.2-5.5) g/dL Globulin 3.6 (2.1-4.2) g/dL Albumin/Globulin Ratio 0.4 L (1.0-2.2) Prealbumin 8 L (18-45) mg/dL Last Dose Date UNKNOWN Last Dose Time UNKNOWN Random Vancomycin 30.8 ug/mL 03/29/21 Range/Units 03:10 WBC (4.8-10.8) x10^3/uL RBC (4.20-5.40) 10^6/uL Hgb (12.0-16.0) g/dL Hct (37.0-47.0) % MCV (81.0-99.0) fL MCH (27.0-31.0) pg MCHC (32.0-36.0) g/dL RDW (12.0-15.0) % Plt Count (130-450) 10^3/uL MPV (7.9-10.8) fL Neut # (Auto) Lymph # (Auto) [place] # (Auto) Eos # (Auto) Baso # (Auto) Absolute Nucleated RBC Total Counted Band Neuts % (Manual) (0 - 10) % Abnorm Lymph % (Manual) % Myelocytes % ( - 0) % Nucleated RBC % Neutrophils # (Manual) (1.5-6.6) 10^3/uL Lymphocytes # (Manual) (1.5-3.5) 10^3/uL Monocytes # (Manual) (0.0-1.0) 10^3/uL Eosinophils # (Manual) (0-0.7) 10^3/uL Basophils # (Manual) (0-0.1) 10^3/uL Differential Comment WBC Morphology (NORMAL) Platelet Estimate (NORMAL) Platelet Morphology (NORMAL) RBC Morph Micro Appear (NORMAL) Bld Gas Analysis Time 0310 Sample Site A-LINE ABG pH 7.21 L (7.35-7.45) ABG pCO2 62 H* (34-45) mmHg ABG pO2 49 L* (80-100) mmHg ABG HCO3 24.3 (22.0-26.0) mmol/L ABG Total CO2 26.2 (21.0-29.0) MMOL/L ABG O2 Saturation 80 L* (94-98) % ABG Base Excess -4.1 L (-2.0-3.0) mmol/L Shalom Test NOT APPLICABLE Respiration Rate 30 b/min O2 Delivery Device VENTILATOR Vent Mode ASSIST/CONTROL FiO2 100.00 Tidal Volume 420 mL PEEP 14 cmH2O Sodium (135-145) mmol/L Potassium (3.5-5.0) mmol/L Chloride (101-111) mmol/L Carbon Dioxide (21-32) mmol/L Anion Gap (6-13) BUN (6-20) mg/dL Creatinine (0.4-1.0) mg/dL Estimated GFR (MDRD) (>89) Glucose (70-100) mg/dL Calcium (8.5-10.3) mg/dL Phosphorus (2.5-4.6) mg/dL Magnesium (1.7-2.8) mg/dL Total Bilirubin (0.2-1.0) mg/dL AST (10-42) IU/L ALT (10-60) IU/L Alkaline Phosphatase (42-121) IU/L Total Protein (6.7-8.2) g/dL Albumin (3.2-5.5) g/dL Globulin (2.1-4.2) g/dL Albumin/Globulin Ratio (1.0-2.2) Prealbumin (18-45) mg/dL Last Dose Date Last Dose Time Random Vancomycin ug/mL Assessment/Plan - Problem List (1) Acute respiratory failure with hypoxia Impression: She has not improved and her ABG indicates unresponsive acidosis. She needed intubation a week ago, has been sedated with iv Versed and iv Prop ofol. A central line, an arterial line and ng tube were placed. Meds being given per ng. The cause is COVID pneumonia. She has finished 5 days of Remdesivir. She remains on Decadron and antibx were broadened when possibly aspiration occurred. She was getting proning daily, getting ng feeds, but stopping ng feeds when proned and 1 hr prior to proning. Today I will not prone due to tenuous status. We are continuing supportive measures. We have already iv propofol to iv Precedex drip, continue gentle iv Versed. Overall prognosis remains poor. The was updated in person today. We are still trying for transfer to [facility] and I did call again today but no beds available. She has been accepted and is on a list. We had a window of opportunity last night, but that bed became occupied with a patient who coded. poor prognosis discussed with . Emotional support provided. (2) On mechanically assisted ventilator She has an art line and is at 100% FIO2 on current vent settings, saturating 88% She is proning daily and sats improve slightly when she is proned. Continue on vent. (3) Acute Oliguric Renal Failure (N17.9) Her BUN/creat continues to worsen daily and she is oliguric for 3 days. It was initially felt to be ATN from dehydration when the Echo (done 03/23/21) showed a small, underfilled LV cavity with hyperdynamic function, consistent with volume depletion). Also her BENJAMIN could be from having gotten Vanco. She has not been hypotensive but starting 03/27, her BP was "soft", we stopped the Amlodipine therefore. Received a dose of Lasix 80 mg iv and no improvement in urine output so Metolazone iv plus iv Lasix started today. Avoid nephrotoxins, watch Vanco level Follow BMP daily or more often. Worsening renal condition explained to the and son 03/27 and 03/28 by Hospitalist. Was reiterated by me today to . The wants her to be considered for hemodialysis, which hospitalist started working on 03/27. She had reached out to [facility] (no beds and long wait and not put on list), [facility] put her on wait list, and [facility] put her on wait list. (Both of those were re-called 03/28 and no beds yet). 03/28 [facility] in [place] was called and she was not accepted (but put on long waiting list). Then was called and the hospitalist spoke to Forensic Social Worker Fellow (Dr Paul Sanches), and he advised we start Lasix and then the Metolazone plus Lasix and decrease all iv fluids. We continue to work on getting her to a hospital with higher level of care. I spoke to [facility] who accepted her, but again, the bed we had was lost due to a code in their facility. has asked if he could give blood for her or donate a kidney for her and I explained why that wasn't feasible. . (4) Metabolic acidosis Her low pH around 7.2 continues to persist. Etiology is likely her significant renal failure or we considered a worsening infection. We have broadened her antibiotics empirically. The wants her to be considered for hemodialysis. She is to continue to get iv bicarb in D5W drip Follow pH and BMP daily or more frequently. Discussed with her today. (5) Hyperkalemia This is consistent with her acidosis and her renal failure. Three days ago she needed Insulin 10 units, D50 amp, Kayexalate and her fluids were changed and potassium removed from maintenance fluids. I will repeat today and recheck K after. (6) Pneumonia due to 2019 novel coronavirus Impression: This was the initial cause of respiratory failure as mentioned above. She has completed a course of Remdesivir. She remains on Decadron. She was intubated. We will continue in the ICU with the plan as above. (7) Aspiration pneumonia Her chest x-ray 03/27 showed continued bilateral infiltrates and possible fluid. There was a concern several days ago of a ET tube cuff leak, therefore aspiration pneumonia was a likely etiology of a worsened infection. She makes no sputum IV antibiotics have been broadened: she was on cefepime and Vanco, and now we have added Flagyl and Azithromycin to cover anaerobes plus atypical bacteria. (8) Diarrhea Improving. Suspect that this was from receiving Kayexalate. The bowel movement started wi th a normal very large formed BM followed by more than 2 BMs that were liquidy We checked for C. difficile and it was negative. We stopped the daily bowel protocol being given per NG. (9) Hyperglycemia She had blood glu values of 238, 237, since starting iv Decadron, iv with D5, and ng tube feeds. She is getting glu fingerstick checks and ss Insulin coverage (10) Hyperthyroidism, iatrogenic. She is on cytomel for hypothyroidism. TSH checked due to new PSVT several days ago, we assessed and it came back excessively low. Cytomel was being given in outpt setting and now. I will stop that today.
[2021-03-29] MEDS ORDERED: SODIUM CHLORIDE 0.9% 500 ML IV ONE (20:10)
[2021-03-29] MEDS: ATORVASTATIN 10 MG TABLET PO SCH (20:57)
--- NOTE | 2021-03-29 21:04 | DISCHARGE SUMMARY ---
"Discharge Summary Admit Date: 03/14/21 Discharge Date: 03/29/21 Discharging Provider: Leroy Gutierrez Primary Care Provider: Dawson Vizcarra Code Status: Attempt Resuscitation Condition at Discharge: Critical Discharge Disposition: 02 Transfer Acute Care Hosp Discharge Facility Name: [facility] - DIAGNOSES Admission Diagnoses: Acute respiratory failure with hypoxia COVID-19 Chest pressure Hypothyroidism Hypertension Discharge Diagnoses with Status of Each Condition: Acute respiratory failure with hypoxia - worsening. On mechanically assisted ventilator - ongoing. Acute oliguric renal failure - worsening. Metabolic and respiratory acidosis - stable. Hyperkalemia - worsening. Pneumonia due to COVID-19 - onoging. Suspect aspiration pneumonia - ongoing. Hyperglycemia - stable Hypothyroidism - stable. Paroxysmal SVT - stable. History of aortic valve placement - stable. History of hypertension - stable. - HPI History of Present Illness: H&P per Dr. Monroe: She is an 80-year-old female who presented to the ED with complaint of dyspnea which has been going on for the past 2 days. Today it was worse. She also reported experiencing substernal chest discomfort which she described as a pressure and rated 7 out of 10. She was also experiencing nausea and dry heaving. She reported an unspecified fever. In the ED she was tachypneic with respiratory rate as high as 36. As she was hypoxic with an oxygen saturation of 85% on room air. However on 2 L oxygen her oxygen saturation was in the mid to high 90s. She had a CT angiogram which was negative for pulmonary embolism but there was increased pulmonary vascularity suggestive of edema. Initial troponin was 28 and a repeat was 30. She is positive for COVID-19. She is unvaccinated. She was adm itted for further treatment. - CONSULTS | PROCEDURES Procedures: Echocardiogram on March 23 showed mild concentric LVH. EF of 65 to 70%. Normally functioning bioprosthetic valve in the aortic position with a peak velocity less than 3 m/sec. - HOSPITAL COURSE Hospital Course: She was admitted for acute hypoxic respiratory failure secondary to COVID-19 pneumonia. She initially only required 2 L of oxygen via nasal cannula but given she was hypoxic, she started on Decadron. We discussed remdesivir but she declined this the first day due to potential side effects. The following day she became more hypoxic requiring 5 to 6 L via nasal cannula and so we discussed the use of remdesivir again and she was agreeable to it. She completed 5 days of remdesivir as well as 10 days of Decadron. She was also treated with ceftriaxone azithromycin initially given concern for community-acquired pneumonia. Unfortunately despite this, her oxygen requirements continued to increase and she now required high flow nasal cannula. She was transferred to the ICU and she continued to have an increase in her oxygen requirements over the next 48 hours. Her antibiotics were changed to vancomycin and cefepime given her white count continued to increase. We discussed goals of care multiple times during his hospitalization the patient made it quite clear she wanted to be a full code and was agreeable to intubation but only as a last resort. After about 5 days of hospitalization, she became hypoxic on high flow nasal cannula and required BiPAP. The patient once again stated she want to be up on BiPAP for as long as possible before considering intubation. Unfortunately despite supportive measures, she became hypoxic while on BiPAP with an FiO2 of 100% and so she was intubated. Once she was intubated, she remained on the Decadron to complete 10 days of therapy. She was started on tube feeds. We also began to prone her on a daily basis. Despite this, she remained quite hypoxic and requiring FiO2 100% with a PEEP of 15. She also then began to develop acute oliguric renal failure. Her creatinine has risen over the past few days now from a baseline of 0.7 from March 22 to 3.9 today. Her BUN has also increased from 30 to 152. She has been an uric and developed metabolic acidosis and so she was started on the sodium bicarbonate infusion at 50 mL an hour. Given her multiorgan failure, we discussed the family regarding transfer and they were agreeable to this. Unfortunately, there were no beds available at nearby facilities on March 28. [facility] was contacted and they recommended holding fluids and to attempt diuresis with IV Lasix. Despite this, the patient has remained anuric with worsening renal function and significant hypoxia. Her oxygen saturations are now in the low to mid 80s on FiO2 100% with a PEEP of 15. We did increase her tidal volume to 450 mL today given she was becoming more acidotic due to hypercapnia. She is on assist control with a tidal volume of 450, rate of 30. PEEP is 15 and FiO2 is 100%. She also developed hyperkalemia and was treated with insulin and dextrose twice today as well as Kayexalate. She was ultimately accepted in transfer graciously by Dr. Mercer at [facility]. Given the patient's critical condition, she will be transported via airlift. She is in a critical condition but ultimately will need to be transferred for hemodialysis as you do not have this available at our facility. This was discussed with the patient's family on March 28 and they were agreeable to this and once again confirmed the patient is a full code. She currently has an arterial line as well as a right IJ central line. She is sedated with Versed and Precedex. She is on 6 mcg/min of norepinephrine. I did obtain an EKG prior to transfer as the patient potassium was 6.8 this afternoon at 4 PM. EKG was relatively unchanged compared to the prior EKG in our EMR but her MD interval did appear prolonged and her QRS was widened. Given we do not have enough time to repeat labs, I administered another 10 units of IV insulin and an amp of dextrose. I also gave her 2 g of calcium. She will need repeat labs upon arrival at [facility] and will most likely need hemodialysis. I did speak with the patient's , Dawson, to update him on the patient being transferred to [facility] and explained to him once again her critical condition and overall poor prognosis. - ALLERGIES Allergies/Adverse Reactions: Allergies Allergy/AdvReac Type Severity Reaction Status Date / Time No Known Drug Allergies Allergy Verified 03/14/21 11:01 - MEDICATIONS Home Medications: Ambulatory Orders Medication Instructions Recorded Confirmed Aspirin [Aspirin EC] 81 mg PO DAILY 03/15/21 03/15/21 Liothyronine [Cytomel] 25 mcg PO QDAC 03/15/21 03/15/21 Meloxicam [Mobic] 1 tablet PO DAILY 03/15/21 03/15/21 Potassium Chloride [Klor-Con 10] 10 meq PO BIDWM 03/15/21 03/15/21 Rosuvastatin Calcium [Crestor] 10 mg PO DAILY 03/15/21 03/15/21 - PHYSICAL EXAM AT DISCHARGE General Appearance: positive: Other (Sedated.) ENT: positive: Other (Dried blood in the oropharynx. ET tube in place) Respiratory: positive: Rhonchi. negative: Wheezes Cardiovascular: positive: Regular rate & rhythm. negative: Tachycardia, Systolic murmur Abdomen: positive: No distention. negative: Tenderness Skin: positive: Warm, Dry Extremities: positive: Pedal edema (+2 pitting edema in the bilateral lower extremities) Neurologic/Psychiatric: positive: Other (She does not follow commands on sedation.) Physical Exam Other/Comments: Vital Signs - 8 hr 03/29/21 03/29/21 03/29/21 14:00 15:00 15:40 Temperature Heart Rate 92 Heart Rate [ 85 87 Monitoring electrodes] Respiratory 30 H 30 H Rate Blood Pressure 132/50 H 133/50 H [Left Brachial artery] Blood Pressure 97/39 L 102/40 L [Right Radial artery] O2 Saturation 86 L 84 L 03/29/21 03/29/21 03/29/21 16:00 17:00 17:46 Temperature 36.5 C Heart Rate Heart Rate [ 88 95 Monitoring electrodes] Respiratory 30 H 31 H Rate Blood Pressure 142/46 H 131/54 H [Left Brachial artery] Blood Pressure 102/40 L 101/40 L [Right Radial artery] O2 Saturation 85 L 82 L 03/29/21 03/29/21 03/29/21 18:00 19:00 19:15 Temperature Heart Rate 90 Heart Rate [ 90 89 Monitoring electrodes] Respiratory 30 H 30 H Rate Blood Pressure 125/53 L 130/49 L [Left Brachial artery] Blood Pressure 87/37 L 90/37 L [Right Radial artery] O2 Saturation 83 L 84 L 03/29/21 03/29/21 03/29/21 20:00 21:00 21:18 Temperature Heart Rate 91 Heart Rate [ 98 92 Monitoring electrodes] Respiratory 30 H 30 H Rate Blood Pressure 136/44 H 123/63 [Left Brachial artery] Blood Pressure 87/37 L 97/48 L [Right Radial artery] O2 Saturation 84 L 80 L - LABS Result Diagrams: 03/29/21 04:53 03/29/21 14:55 Other Lab Results: Laboratory Results 03/29/21 14:55: Potassium 6.8 H* 03/29/21 04:53: Last Dose Date UNKNOWN, Last Dose Time UNKNOWN, Random Vancomycin 30.8 03/29/21 04:53: WBC 23.3 H, RBC 3.48 L, Hgb 9.3 L, Hct 30.0 L, MCV 86.2, MCH 26.7 L, MCHC 31.0 L, RDW 16.8 H, Plt Count 236, MPV 11.3 H, Neut # (Auto) Not Reportable, Lymph # (Auto) Not Reportable, [place] # (Auto) Not Reportable, Eos # (Auto) Not Reportable, Baso # (Auto) Not Reportable, Absolute Nucleated RBC Not Reportable, Total Counted 100, Band Neuts % (Manual) 3, Abnorm Lymph % (Manual) 0, Myelocytes % 2 H, Nucleated RBC % Not Reportable, Neutrophils # (Manual) 22.1 H, Lymphocytes # (Manual) 0.5 L, Monocytes # (Manual) 0.0, Eosinophils # (Manual) 0.2, Basophils # (Manual) 0.0, Differential Comment MANUAL DIFFER ENTIAL, WBC Morphology NORMAL APPEARANCE, Platelet Estimate NORMAL (130- 450,000), Platelet Morphology NORMAL APPEARANCE, RBC Morph Micro Appear NORMAL APPEARANCE 03/29/21 04:53: Sodium 136, Potassium 6.6 H*, Chloride 97 L, Carbon Dioxide 25, Anion Gap 14.0 H, BUN 152 H*, Creatinine 3.9 H, Estimated GFR (MDRD) 11 L, Glucose 182 H, Calcium 8.4 L, Phosphorus 9.3 H, Magnesium 3.0 H, Total Bilirubin 0.8, AST 45 H, ALT 36, Alkaline Phosphatase 105, Total Protein 5.1 L, Albumin 1.5 L, Globulin 3.6, Albumin/Globulin Ratio 0.4 L, Prealbumin 8 L 03/29/21 03:10: Bld Gas Analysis Time 0310, Sample Site A-LINE, ABG pH 7.21 L, ABG pCO2 62 H*, ABG pO2 49 L*, ABG HCO3 24.3, ABG Total CO2 26.2, ABG O2 Saturation 80 L*, ABG Base Excess -4.1 L, Shalom Test NOT APPLICABLE, Respiration Rate 30, O2 Delivery Device VENTILATOR, Vent Mode ASSIST/CONTROL, FiO2 100.00, Tidal Volume 420, PEEP 14 03/28/21 08:02: WBC 21.4 H, RBC 3.38 L, Hgb 9.0 L, Hct 29.4 L, MCV 87.0, MCH 26.6 L, MCHC 30.6 L, RDW 16.7 H, Plt Count 186, MPV 11.2 H, Neut # (Auto) Not Reportable, Lymph # (Auto) Not Reportable, [place] # (Auto) Not Reportable, Eos # (Auto) Not Reportable, Baso # (Auto) Not Reportable, Absolute Nucleated RBC Not Reportable, Total Counted 100, Band Neuts % (Manual) 1, Abnorm Lymph % (Manual) 0, Nucleated RBC % Not Reportable, Neutrophils # (Manual) 19.7 H, Lymphocytes # (Manual) 0.4 L, Monocytes # (Manual) 0.2, Eosinophils # (Manual) 1.1 H, Basophils # (Manual) 0.0, Differential Comment MANUAL DIFFERENTIAL, Platelet Estimate NORMAL (130-450,000), Platelet Morphology 1+ LARGE PLATELETS, RBC Morph Micro Appear NORMAL APPEARANCE 03/28/21 08:02: Sodium 137, Potassium 5.8 H, Chloride 98 L, Carbon Dioxide 27, Anion Gap 12.0, BUN 131 H*, Creatinine 3.5 H, Estimated GFR (MDRD) 13 L, Glucose 203 H, Calcium 8.1 L 03/28/21 06:55: VBG pH 7.240 L, Ionized Calcium 1.14 L 03/28/21 05:54: Bld Gas Analysis Time 0559, Sample Site A-LINE, ABG pH 7.23 L, ABG pCO2 61 H*, ABG pO2 53 L*, ABG HCO3 24.7, ABG Total CO2 26.6, ABG O2 Saturation 84 L*, ABG Base Excess -3.3 L, Shalom Test NOT APPLICABLE, Respiration Rate 30, O2 Delivery Device VENTILATOR, Vent Mode ASSIST/CONTROL, FiO2 100.00, Tidal Volume 420, PEEP 14 03/28/21 05:00: Last Dose Date UNKNOWN, Last Dose Time UNKNOWN, Random Vancomycin 33.4 03/28/21 04:40: Potassium 5.7 H, Phosphorus 8.0 H, Magnesium 2.9 H - DIAGNOSTIC IMAGING Diagnostic Imaging Results: Final report reviewed Diagnostic Imaging Results Comments: Chest x-ray March 26 showed pulmonary edema versus bilateral pneumonia. CT angiogram on March 14 showed no evidence of pulmonary embolism. Appearance of increased pulmonary vascular is present and is suspected to be edema. Underlying developing areas of pneumonia and/or atelectasis cannot be excluded. - TIME SPENT Time Spent in Discharge (Minutes): 44"
[2021-03-29] MEDS ORDERED: CALCIUM GLUCONATE 2,000 MG in SODIUM CHLORIDE 0.9% 100ML 100 ML IV ONE ×2 (21:23→21:40)
[2021-03-29 22:23] VITALS: BP 125/48
== END 2021-03-29 23:13 | disposition short-term general hospital (02) | DRG 207 ==
LOC: EDUNIT# → ED 10:49 → MS2 16:53 → OBSVTOIN 03-15 10:59 → ICU 03-16 10:59
PROVIDERS: ADMIT Internal Medicine; ATTEND Internal Medicine
PROC: XW033E5 Introduction of Remdesivir Anti-infective into Peripheral Vein, Percutaneous Approach, New Technology Group 5 (ICD-10-PCS; 2021-03-16)
PROC: 5A1955Z Respiratory Ventilation, Greater than 96 Consecutive Hours (ICD-10-PCS; principal; 2021-03-22)
PROC: 0BH17EZ Insertion of Endotracheal Airway into Trachea, Via Natural or Artificial Opening (ICD-10-PCS; 2021-03-22)
PROC: 02HV33Z Insertion of Infusion Device into Superior Vena Cava, Percutaneous Approach (ICD-10-PCS; 2021-03-22)
DX: U07.1 COVID-19 (principal); J12.82 Pneumonia due to coronavirus disease 2019; J96.01 Acute respiratory failure with hypoxia; J69.0 Pneumonitis due to inhalation of food and vomit; R77.8 Other specified abnormalities of plasma proteins; N17.9 Acute kidney failure, unspecified; E87.4 Mixed disorder of acid-base balance; I47.1 Supraventricular tachycardia; K52.1 Toxic gastroenteritis and colitis; E87.5 Hyperkalemia; R73.9 Hyperglycemia, unspecified; E03.9 Hypothyroidism, unspecified; Z95.2 Presence of prosthetic heart valve; I10 Essential (primary) hypertension; T50.3X5A Adverse effect of electrolytic, caloric and water-balance agents, initial encounter; Y92.230 Patient room in hospital as the place of occurrence of the external cause
CPT/HCPCS: 36415; 36600; 71045; 71275; 80048; 80053; 80076; 80202; 82330; 82803; 83605; 83690; 83735; 83880; 84100; 84132; 84134; 84443; 84478; 84484; 85025; 87150; 87493; 87631; 93005; 93306; 94002; 94003; 94660; 96365; 96372; 96375; 96376; 99284; 99285; A6250; A9270; G0378; J0330; J1650; J1815; J3370; Q9967; 0202U; 94770